=== PATIENT | male | born 1950 | race Caucasian/White ===

== ENCOUNTER → 2017-06-25 08:45 | Outpatient (CLI) | payer MEDICARE, OTHER, SELFPAY ==
[2017-06-25 09:35] LABS: Blood Urea Nitrogen 19 mg/dL (7-18); Creatinine,Serum 0.96 mg/dL (0.70-1.30); Estimated Glomerular Filt Rate 78 ml/min (>60); GFR (African American) 95 ML/MIN (>60)
--- NOTE | 2017-06-25 09:46 | CT_ITS ---
CT abdomen pelvis w con CLINICAL INDICATION: Left-sided abdominal pain with tenderness ITS.REASON: ABD PAIN AND TENDERNESS ORDERING PHYSICIAN: Maryanne Ferrer PATIENT AGE: 67 years TECHNIQUE: Axial images obtained with sagittal and coronal reformats. All CT scans at the facility use one or more dose reduction, viz: automated exposure control; ma/kV adjustment per patient size (including targeted exams where dose is matched to indication; i.e. head); or iterative reconstruction technique. PROCEDURE: Oral Contrast: Redicat IV Contrast: 75 mL's of Isovue-370. FINDINGS: Minimal atelectatic fibrotic changes are present in the lung bases. The liver, spleen, adrenal glands, and pancreas have an unremarkable appearance no radio opaque gallstones are evident. There is a small area of hyperdensity within the pancreatic head posterior to the common bile duct and may be related to an area of calcification or contrast within a small diverticulum. No pancreatic ductal dilatation is evident. No obstructing renal or ureteral calculi. No suspicious renal mass. Unremarkable appendix. Small umbilical hernia contains fat. Scattered diverticula are present within the sigmoid colon. No evidence of diverticulitis. Small bilateral inguinal hernias containing fat. 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 IMPRESSION: 1. No acute finding. 2. Small bilateral inguinal hernias and small umbilical hernia containing fat 3. Scattered diverticula within the sigmoid colon. No evidence of diverticulitis
== END ==
PROVIDERS: Family Provider Nurse Practitioner Family; PCP Nurse Practitioner Family; Visit Provider Nurse Practitioner Family
DX: R10.817 Generalized abdominal tenderness (principal)
CPT/HCPCS: 36415; 74177; 82565; 84520; Q9967

== ENCOUNTER → 2017-07-15 13:40 | Outpatient (POV) | payer MEDICARE, OTHER, SELFPAY | PROVIDERS: Family Provider Nurse Practitioner Family; PCP Nurse Practitioner Family; Visit Provider Nurse Practitioner Acute Care | DX: Z00.00 Encounter for general adult medical examination without abnormal findings (principal) ==

== ENCOUNTER 2018-03-19 23:44 | Inpatient (IN) ==
--- NOTE | 2018-03-20 00:20 | Emergency Department Note ---
ED Disposition Clinical Impression: Unstable angina pectoris, Renal insufficiency, Obesity (BMI 30.0-34.9) Disposition: Admitted As Inpatient Condition on Discharge: Serious Referrals: Provider,Referral, [Referring] - - Critical Care Critical Care Time: No Attestation: On 03/19/18, the high probability of a clinically significant, sudden or life threatening deterioration of the following system(s) required my full and direct attention, intervention and personal management. The time I documented below is in addition to time spent performing reported procedures but includes the following listed in this critical care notation. Medical Decision Making - Medical Records Medical records reviewed: Yes: I reviewed the patient's medical records. - Clay Inquiry Pt receiving controlled substance: No Vital Signs: 03/19/18 23:44 03/20/18 00:10 03/20/18 00:20 Temperature 98.5 F Temperature Source Oral Pulse Rate [Right Brachial] 72 73 69 Respiratory Rate 12 12 Blood Pressure [Right Arm] 140/79 149/76 H 144/79 H Blood Pressure Mean [Right Arm] 99 100 100 02 Sat by Pulse Oximetry 96 96 95 Oxygen Delivery Method Room Air Room Air Nasal Cannula Oxygen Flow Rate (LPM) 2 03/20/18 00:30 03/20/18 00:40 Temperature Temperature Source Pulse Rate [Right Brachial] 69 68 Respiratory Rate Blood Pressure [Right Arm] 141/75 H 144/86 H Blood Pressure Mean [Right Arm] 97 105 02 Sat by Pulse Oximetry 95 95 Oxygen Delivery Method Nasal Cannula Oxygen Flow Rate (LPM) 2 - Lab Data Lab results reviewed: Yes: I reviewed the patient's lab results. Lab Results 03/20/18 00:00: WBC 10.2, RBC 5.04, Hgb 15.3, Hct 46.2, MCV 91.8, MCH 30.4, MCHC 33.1, RDW 12.8, Plt Count 227, MPV 7.2 L, Neut % (Auto) 69.5, Lymph % (Auto) 24 .4, [place] % (Auto) 4.3, Eos % (Auto) 1.1, Baso % (Auto) 0.7, Neut # (Auto) 7.1, Lymph # (Auto) 2.5, [place] # (Auto) 0.4, Eos # (Auto) 0.1, Baso # (Auto) 0.1 03/20/18 00:00: Sodium 139, Potassium 4.3, Chloride 103, Carbon Dioxide 23, Anion Gap 17.3 H, BUN 23 H, Creatinine 1.26, Estimated Creat Clear 86, Estimated GFR 57 L, Est GFR ( Amer) 69, Glucose 115 H, Calcium 8.9, Troponin I < 0.02, TSH 4.15 H, Thyroxine (T4) 10.4 Result diagrams: 03/20/18 00:00 03/20/18 00:00 Orders (Tests/Meds): ED MEDICATIONS Generic Name Dose Route Start Last Admin Trade Name Jessie PRN Reason Stop Dose Admin Sodium Chloride 1,000 mls @ 999 mls/hr 03/19/18 23:45 03/20/18 00:09 Sod Chlor 0.9% 1000ml Bag IV 03/20/18 00:45 999 mls/hr .Q1H1M RUTH Administration Nitroglycerin/Dextrose 250 mls @ 1.5 mls/hr 03/19/18 23:45 03/20/18 00:08 Nitroglycerin 50mg/250ml D5w IV 04/18/18 23:44 5 mcg/min .Q24H RUTH 1.5 mls/hr Administration Protocol 5 MCG/MIN Sodium Chloride 10 ml 03/19/18 23:50 Saline Flush 10ml Syringe IV 04/18/18 23:49 NEEDED PRN Maintain IV Site Discontinued Medications Generic Name Dose Route Start Last Admin Trade Name Jessie PRN Reason Stop Dose Admin Aspirin 324 mg 03/19/18 23:50 03/20/18 00:08 Aspirin 81mg Chewable Tablet PO 03/19/18 23:51 324 mg ONCE ONE Administration Morphine Sulfate 4 mg 03/19/18 23:56 03/20/18 00:08 Morphine 4mg/Ml Syringe IV 03/19/18 23:57 4 mg ONCE ONE Administration Ondansetron HCl 4 mg 03/19/18 23:56 03/20/18 00:08 Zofran 4mg/2ml Vial IV 03/19/18 23:57 4 mg ONCE ONE Administration Ticagrelor 180 mg 03/20/18 01:11 03/20/18 01:16 Brilinta 90mg Tablet PO 03/20/18 01:12 180 mg ONCE ONE Administration ORDERS Category Date Time Status XR chest portable Stat Exams 03/19/18 23:50 Taken Troponin I Timed Lab 03/20/18 01:30 Ordered ECG Request by /Daljit Stat Y 03/19/18 23:50 Ordered - Radiology Data #1 Image(s): Chest Image Reviewed: Yes I reviewed the patient's radiology image Preliminary Findings: Abnormal (cm) - ECG Data Tracing #1 Normal Sinus Rhythm: Yes Ischemic changes: non-specific ST-T wave changes Tracing #2 Normal Sinus Rhythm: Yes Ischemic changes: non-specific ST-T wave changes - Physician Consults Physician Consulted: narciso Reason -: Admission Additional Consult: jose Reason -: Pt condition Chest Pain HPI - General Chief Complaint: Chest Pain Stated Complaint: chest pain/pressure Time Seen by Provider: 03/19/18 23:50 Mode of Arrival: EMS Source of Information: Patient, Spouse, EMS, Medical Record Limitations: No Limitations Description of Symptoms (Recalled from ER Triage Doc. by RN): Pt brought in by EMS for chest pain. Pt reports it started approx 30 minutes ago, he was sitting in the chair and it hit him suddenly. He reports severe pressure, with pain down into the left arm, and he got very "sweaty" and short of breath when it happened. Pt had 3 SL nitro en route and states that his pain is now a 5/10 instead of 9/10. - History of Present Illness HPI narrative: sudden onset of pressure chest pain with rad to lt upper ext with no known heart dis and he has diaphoresis - pt was seen by ems with ntg which helped pain and in ed pain gone with ntg drip complaint: chest pain indicative of cardiac Onset (ago): hour(s) Duration: now resolved Activity at onset: during rest Pain location: left chest Severity: severe Quality: heaviness Pain radiation: LUE Relieving factors: nitroglycerin Associated symptoms: nausea, diaphoresis, dyspnea, sense of impending doom Risk Factors for CAD: Hypertension, Hypercholesterolemia, Family Hx of CAD Treatments prior to or on arrival for Cardiac Chest Pain: nitroglycerin - NARA Score for Non-Stemi Age of Patient: 60-69 years old Heart Rate: 70-89 bpm Systolic Blood Pressure: 140-159 mmHg Serum Creatinine: 1.20-1.59 mg/dl CHF [place] Class: I-No CHF Other Risk Factors: None Non-Stemi Risk Score: 101 - Related Data Home Medications Medication Instructions Recorded Confirmed Allopurinol [Zyloprim] 300 mg PO DAILY 10/29/17 03/20/18 Aspirin [Aspir 81] 81 mg PO DAILY 10/29/17 03/20/18 Fenofibrate Nanocrystallized 48 mg PO DAILY 10/29/17 03/20/18 [Fenofibrate] Levothyroxine Sodium 125 mcg PO DAILY 10/29/17 03/20/18 [Levothyroxine 125mcg (0.125mg) Tab] NIFEdipine [Nifedipine ER] 90 mg PO DAILY 10/29/17 03/20/18 Omeprazole [Omeprazole 20mg Tab] 20 mg PO DAILY 10/29/17 03/20/18 Pravastatin Sodium [Pravachol] 20 mg PO HS 10/29/17 03/20/18 Allergies Allergy/AdvReac Type Severity Reaction Status Date / Time No Known Allergies Allergy Verified 10/29/17 14:22 [facility] History - Hepatitis A Screen Drug use history?: No High risk sexual behaviors?: No History of sexually transmitted infection?: No Currently employed?: No Childcare worker?: No Do you have indoor plumbing?: Yes Do you have electricity?: Yes Attestation statement:: This patient has been screened for Hepatitis A risk factors. I have reviewed the patient's past medical history: Yes Medical History: Reports:: Hyperlipidemia, Hypertension Denies:: Cancer, Diabetes Mellitus Type 1, Diabetes Mellitus Type 2, Internal Pacemaker, Lung Disease, MRSA, Seizures Other Surgeries: Yes: Hernia Repair. No: Pacemaker Amputation: No Fractures: No - Social History Alcohol Intake: never Occupational Status: retired - Psychiatric History Expresses thoughts of harming self/others: None Suicide Plan Description: No Plan ROS Obtained: Yes All systems reviewed & no additional complaints - Constitutional Constitutional: Denies fever(s) - Eyes Eyes: Denies change in vision - ENT Ears, Nose, Mouth, and Throat: Denies ear discharge, Denies sore throat - Cardiovascular Cardiovascular: Reports chest pain at rest, Reports diaphoresis, Reports radiating jaw, neck or arm pain - Respiratory Respiratory: No cough - Gastrointestinal Gastrointestingal: Denies: abdominal pain - Genitourinary Male Genitourinary: Denies hematuria - Musculoskeletal Musculoskeletal: Denies joint pain, Denies neck pain - Integumentary/Breasts Skin/Breast: Denies rash - Neurologic Neurologic: Denies seizure-like activity Physical Exam - General General appearance: alert, obese - Head Head exam: normocephalic - Eye Eye exam: Present: PERRL, EOMI. Absent: scleral icterus - ENT ENT exam: Present: mucous membranes dry - Neck Neck exam: Present: trachea midline - Respiratory Respiratory exam: Present: normal lung sounds bilaterally. Absent: respiratory distress - Cardiovascular Cardiovascular exam: Present: regular rate, systolic murmur, +S4 - Abdominal Exam Abdominal exam: Present: soft. Absent: tenderness - Extremities Exam Extremities exam: Present: pedal edema. Absent: calf tenderness - Neurological Exam Neurological exam: Present: alert, oriented X3, CN II-XII intact - Psychiatric Psychiatric exam: Present: normal affect - Skin Skin exam: Absent: rash
[2018-03-20 00:35] LABS: Basophils # 0.1 K/mm3 (0-0.2); Basophils % 0.7 % (0.1-2.0); Eosinophils # 0.1 K/mm3 (0.0-0.4); Eosinophils % 1.1 % (0.1-12.0); Hematocrit 46.2 % (42.0-52.0); Hemoglobin 15.3 g/dL (14.1-18.0); Lymphocytes # 2.5 K/mm3 (0.7-4.5); Lymphocytes % 24.4 % (10-50); Mean Corpuscular HGB Conc 33.1 g/dL (31.8-35.4); Mean Corpuscular Hemoglobin 30.4 pg (27.0-31.2); Mean Corpuscular Volume 91.8 fl (80-94); Mean Platelet Volume 7.2 fl (7.4-10.4); Monocytes # 0.4 K/mm3 (0.1-1.0); Monocytes % 4.3 % (1.7-9.3); Neutrophils # 7.1 K/mm3 (1.8-7.8); Neutrophils % 69.5 % (37.0-80.0); Platelet Count 227 K/mm3 (142-424); Red Blood Count 5.04 M/mm3 (4.60-6.20); Red Cell Distribution Width 12.8 % (11.5-17.5); White Blood Count 10.2 K/mm3 (4.8-10.8)
[2018-03-20 00:51] LABS: Anion Gap 17.3 mEq/L (5-15); Blood Urea Nitrogen 23 mg/dL (7-18); Calcium 8.9 mg/dL (8.5-10.1); Carbon Dioxide 23 mmol/L (21.0-32.0); Chloride 103 mmol/L (98-107); Glucose 115 mg/dL (74-106); Potassium 4.3 mmoL/L (3.5-5.1); Sodium 139 mmol/L (136-145); T4 (Thyroxine) 10.4 ug/dl (4.7-13.3); Thyroid Stimulating Hormone 4.15 uIU/ml (0.358-3.740)
[2018-03-20 05:05] LABS: Basophils # 0.1 K/mm3 (0-0.2); Basophils % 0.8 % (0.1-2.0); Eosinophils # 0.2 K/mm3 (0.0-0.4); Eosinophils % 2.3 % (0.1-12.0); Hematocrit 43.3 % (42.0-52.0); Hemoglobin 14.4 g/dL (14.1-18.0); Lymphocytes # 2.8 K/mm3 (0.7-4.5); Lymphocytes % 29.7 % (10-50); Mean Corpuscular HGB Conc 33.2 g/dL (31.8-35.4); Mean Corpuscular Hemoglobin 30.8 pg (27.0-31.2); Mean Corpuscular Volume 92.6 fl (80-94); Mean Platelet Volume 7.3 fl (7.4-10.4); Monocytes # 0.4 K/mm3 (0.1-1.0); Monocytes % 4.6 % (1.7-9.3); Neutrophils # 5.9 K/mm3 (1.8-7.8); Neutrophils % 62.5 % (37.0-80.0); Platelet Count 195 K/mm3 (142-424); Red Blood Count 4.68 M/mm3 (4.60-6.20); Red Cell Distribution Width 12.8 % (11.5-17.5); White Blood Count 9.4 K/mm3 (4.8-10.8)
[2018-03-20 05:15] LABS: Anion Gap 14.3 mEq/L (5-15); Calcium 8.5 mg/dL (8.5-10.1); Chol/HDL Ratio 5.2 (1-3.5); Potassium 4.3 mmoL/L (3.5-5.1)
--- NOTE | 2018-03-20 07:58 | Consult Report ---
History of Present Illness Consult date: 03/20/18 Requesting physician: Daniel Lima Consult reason: chest pain Chief complaint: chest pain Additional Medical History:: 1. HTN 2. HLD 3. Reflux 4. Hypothyroidism, on supplement History of present illness: 68 yo WM admitted for acute onset of chest pain, diaphoresis, nausea and left arm pain. Symptoms onset at 10:30 PM while watching TV. EMS called and transpo rted to [facility] ER. He received 3 SL NTG en route, each bringing some relief without resolution. In ER, NTG gtt started and symptoms resolved overnight. EKG's showed NSR without acute changes. Troponins normal X 2 but third one elevated consistent with NSTEMI. Pt relates exertional SOA over the last month or two in retrospect. Cardiology consulted for evaluation and treatment. Denies tobacco use or diabetes. HTN and HLD treated for about 10 yrs. [facility] History Medical History: Reports:: Hyperlipidemia, Hypertension Denies:: Cancer, Diabetes Mellitus Type 1, Diabetes Mellitus Type 2, Internal Pacemaker, Lung Disease, MRSA, Seizures Have you ever received a pneumonia vaccine?: No Have you received a flu vaccine this season?: Yes Other Surgeries: Yes: Hernia Repair. No: Pacemaker Amputation: No Fractures: No - *Social History Educational Level: Attended High School Smoking Status: Never smoker Alcohol Intake: never Occupational Status: retired Travel in the last 8 weeks: None - Psychiatric History Expresses thoughts of harming self/others: None Suicide Plan Description: No Plan *Family Hx:: Coronary Artery Disease Meds Home Medications Medication Instructions Recorded Confirmed Type Allopurinol [Zyloprim] 300 mg PO DAILY 10/29/17 03/20/18 History Aspirin [Aspir 81] 81 mg PO DAILY 10/29/17 03/20/18 History Fenofibrate Nanocrystallized 48 mg PO HS 10/29/17 03/20/18 History [Fenofibrate] Levothyroxine Sodium 0.1 mg PO DAILY 10/29/17 03/20/18 History [Levothyroxine 125mcg (0.125mg) Tab] NIFEdipine [Nifedipine ER] 90 mg PO DAILY 10/29/17 03/20/18 History Omeprazole [Omeprazole 20mg Tab] 20 mg PO DAILY 10/29/17 03/20/18 History Pravastatin Sodium [Pravachol] 20 mg PO HS 10/29/17 03/20/18 History Ibuprofen [Motrin 800mg Tab 800 mg PO DAILYP PRN 03/20/18 03/20/18 History (generic)] Metoprolol Succinate [Toprol XL 50 mg PO HS 03/20/18 03/20/18 History 50mg Tablet] Allergies Allergy/AdvReac Type Severity Reaction Status Date / Time No Known Allergies Allergy Verified 10/29/17 14:22 Review of Systems - *Cardiovascular Reports chest pain, Reports shortness of breath - *Respiratory Reports shortness of breath - *Gastrointestinal Reports nausea, Denies abdominal pain, Denies loose stools - *Genitourinary Denies blood in urine - *Musculoskeletal Denies joint pain - *Neurologic Denies seizure-like activity Exam Vital signs and Labs for Last 24 Hours: Temp Pulse Resp BP Pulse Ox 98.1 F 60 18 138/80 97 03/20/18 04:51 03/20/18 06:00 03/20/18 04:51 03/20/18 06:00 03/20/18 06:00 Laboratory Results - last 24 hr 03/20/18 00:00: WBC 10.2, RBC 5.04, Hgb 15.3, Hct 46.2, MCV 91.8, MCH 30.4, MCHC 33.1, RDW 12.8, Plt Count 227, MPV 7.2 L, Neut % (Auto) 69.5, Lymph % (Auto) 24.4, [place] % (Auto) 4.3, Eos % (Auto) 1.1, Baso % (Auto) 0.7, Neut # (Auto) 7.1, Lymph # (Auto) 2.5, [place] # (Auto) 0.4, Eos # (Auto) 0.1, Baso # (Auto) 0.1 03/20/18 00:00: Sodium 139, Potassium 4.3, Chloride 103, Carbon Dioxide 23, Anion Gap 17.3 H, BUN 23 H, Creatinine 1.26, Estimated Creat Clear 86, Estimated GFR 57 L, Est GFR ( Amer) 69, Glucose 115 H, Calcium 8.9, Troponin I < 0.02, TSH 4.15 H, Thyroxine (T4) 10.4 03/20/18 01:30: Troponin I 0.06 03/20/18 04:35: Troponin I 0.12 H 03/20/18 04:35: WBC 9.4, RBC 4.68, Hgb 14.4, Hct 43.3, MCV 92.6, MCH 30.8, MCHC 33.2, RDW 12.8, Plt Count 195, MPV 7.3 L, Neut % (Auto) 62.5, Lymph % (Auto) 29.7, [place] % (Auto) 4.6, Eos % (Auto) 2.3, Baso % (Auto) 0.8, Neut # (Auto) 5.9, Lymph # (Auto) 2.8, [place] # (Auto) 0.4, Eos # (Auto) 0.2, Baso # (Auto) 0.1 03/20/18 04:35: Sodium 139, Potassium 4.3, Chloride 105, Carbon Dioxide 24, Anion Gap 14.3, BUN 20 H, Creatinine 1.03, Estimated Creat Clear 110, Estimated GFR 72, Est GFR ( Amer) 87 D, Glucose 104, Calcium 8.5, Magnesium 2.1, Triglycerides 112, Cholesterol 145, LDL Cholesterol 95, VLDL Cholesterol 22, HDL Cholesterol 28, Cholesterol/HDL Ratio 5.2 H I & O for Last 24 hours: Intake & Output 03/17/18 03/18/18 03/19/18 03/20/18 11:59 11:59 11:59 11:59 Intake Total 622 / 622 Output Total 780 / 780 Balance -158 / -158 Weight 247 lb - *Routine Neck Exam Present: supple. Absent: JVD, carotid bruit - *Routine Respiratory Exam Present: CTA bilaterally. Absent: accessory muscle use, rales, rhonchi, wheezes - *Routine Cardiovascular Exam Present: RRR. Absent: murmur, gallop, rubs - *Routine Abdominal Exam Present: soft. Absent: tenderness, distended, guarding - *Routine Extremities Exam Absent: edema, calf tenderness - *Routine Neurological Exam Present: alert, oriented X3, moving all extremities Assessment and Plan (1) NSTEMI (non-ST elevated myocardial infarction) Current visit: Yes Status: Acute Category: Medical Code(s): I21.4 - Non-ST elevation (NSTEMI) myocardial infarction (2) Hypertension Current visit: Yes Status: Acute Category: Medical Code(s): I10 - Essential (primary) hypertension (3) Hyperlipidemia Current visit: Yes Status: Acute Category: Medical Code(s): E78.5 - Hyperlipidemia, unspecified (4) Obesity (BMI 30.0-34.9) Current visit: Yes Status: Acute Category: Medical Code(s): E66.9 - Obesity, unspecified - Assessment and plan all Dx Assessment and Plan for all problems:: 1. Echo has been performed. Results pending 2. In setting of NSTEMI, will proceed with [facility] today. 3. Switch pravastatin to atorvastatin for better LDL reduction. LDL 95 with goal of <55. 4. Continue metoprolol succinate ER 50 mg qhs 5. stop nifedipine 6. start ARB in the form of avapro 75 mg daily 7. Further recommendations after cardiac cath.
--- NOTE | 2018-03-20 07:58 | Pharmacy Consult Notes ---
[facility] Pharmacy VTE Monitoring - Patient Demographics Admission date: 03/20/18 Report Date: 03/20/18 Time: 07:57 Allergies/Adverse Reactions: Patient Allergies No Known Allergies Allergy (Verified 10/29/17 14:22) Height: 1.83 m Weight: 112.037 kg Patient Problems: Current Active Problems Unstable angina pectoris (Acute) Renal insufficiency (Acute) Obesity (BMI 30.0-34.9) (Acute) - VTE Risk Labs: VTE Related Lab Results Hgb 14.4 g/dL (14.1-18.0) 03/20/18 04:35 Hct 43.3 % (42.0-52.0) 03/20/18 04:35 Plt Count 195 K/mm3 (142-424) 03/20/18 04:35 BUN 20 mg/dL (7-18) H 03/20/18 04:35 Creatinine 1.03 mg/dL (0.70-1.30) 03/20/18 04:35 Estimated Creat Clear 110 mL/min (50-200) 03/20/18 04:35 Was VTE Risk Assessment Performed: Yes VTE Score: 0 Clinical Trial Participant: No - Prophylaxis VTE Prophylaxis Ordered?: Yes Types of VTE Prophylaxis: TEDS Knee High
--- NOTE | 2018-03-20 09:01 | History & Physical Report ---
*Admission Date: 03/20/18 *Chief complaint: CP *History of present illness: Mr. aBrrientos is a 68-year-old white male who at 10 PM last night had a sudden onset of left-sided chest pain that radiated down his left arm. He states he became diaphoretic and very short of breath. He was sitting watching TV at the onset of the chest pain. He became nauseated as well and his called 911. While in the ambulance, he received 4 aspirin and 3 nitroglycerin with some relief but not total resolution of his pain. In the ER he was started on a nitroglycerin drip and he states his symptoms resolved overnight. He has some very slight soreness in his left chest this morning. His EKG showed normal sinus rhythm without acute changes and his troponins were normal x2, however the third troponin was elevated consistent with an NSTEMI. He does have a history of hypertension and hyperlipidemia and currently sees Maryanne Ferrer as his PCP. He has had some exertional shortness of air over the last month or 2. Cardiology was consulted for further evaluation and treatment.. [facility] History Medical History: Reports:: Hyperlipidemia, Hypertension Denies:: Cancer, Diabetes Mellitus Type 1, Diabetes Mellitus Type 2, Internal Pacemaker, Lung Disease, MRSA, Seizures Have you ever received a pneumonia vaccine?: No Have you received a flu vaccine this season?: Yes Other Surgeries: Yes: Hernia Repair, Other (Sebaceous cyst removed right shoulder). No: Pacemaker Amputation: No Fractures: No - *Social History Educational Level: Attended High School Smoking Status: Never smoker Alcohol Intake: never Occupational Status: retired Travel in the last 8 weeks: None - Psychiatric History Expresses thoughts of harming self/others: None Suicide Plan Description: No Plan *Family Hx:: Coronary Artery Disease, Heart Attack, Hyperlipidemia, Hypertension Review of Systems - Constitutional Reports excessive sweating, Denies chills, Denies fatigue, Denies weakness - Eyes Denies blurry vision, Denies double vision - ENT Denies nasal congestion, Denies sore throat - *Cardiovascular Reports chest pain, Reports excessive sweating, Reports shortness of breath, Reports radiating jaw, neck or arm pain, Denies rapid, pounding, or irregular heartbeat - *Respiratory Reports cough - *Gastrointestinal Reports nausea, Denies abdominal pain, Denies loose stools, Denies vomiting - *Genitourinary Denies difficulty urinating, Denies painful urination - *Musculoskeletal Denies joint pain, Denies muscle cramps - *Neurologic Reports headache(s), Denies seizure-like activity, Denies dizziness, Denies weakness Meds Home Medications Medication Instructions Recorded Confirmed Type Allopurinol [Zyloprim] 300 mg PO DAILY 10/29/17 03/20/18 History Aspirin [Aspir 81] 81 mg PO DAILY 10/29/17 03/20/18 History Fenofibrate Nanocrystallized 48 mg PO HS 10/29/17 03/20/18 History [Fenofibrate] Levothyroxine Sodium 0.1 mg PO DAILY 10/29/17 03/20/18 History [Levothyroxine 125mcg (0.125mg) Tab] NIFEdipine [Nifedipine ER] 90 mg PO DAILY 10/29/17 03/20/18 History Omeprazole [Omeprazole 20mg Tab] 20 mg PO DAILY 10/29/17 03/20/18 History Pravastatin Sodium [Pravachol] 20 mg PO HS 10/29/17 03/20/18 History Ibuprofen [Motrin 800mg Tab 800 mg PO DAILYP PRN 03/20/18 03/20/18 History (generic)] Metoprolol Succinate [Toprol XL 50 mg PO HS 03/20/18 03/20/18 History 50mg Tablet] Allergies Allergy/AdvReac Type Severity Reaction Status Date / Time No Known Allergies Allergy Verified 10/29/17 14:22 Exam Vital signs and Labs for Last 24 Hours: Temp Pulse Resp BP Pulse Ox 98.1 F 60 18 138/80 97 03/20/18 04:51 03/20/18 06:00 03/20/18 04:51 03/20/18 06:00 03/20/18 06:00 Laboratory Results - last 24 hr 03/20/18 00:00: WBC 10.2, RBC 5.04, Hgb 15.3, Hct 46.2, MCV 91.8, MCH 30.4, MCHC 33.1, RDW 12.8, Plt Count 227, MPV 7.2 L, Neut % (Auto) 69.5, Lymph % (Auto) 24.4, [place] % (Auto) 4.3, Eos % (Auto) 1.1, Baso % (Auto) 0.7, Neut # (Auto) 7.1, Lymph # (Auto) 2.5, [place] # (Auto) 0.4, Eos # (Auto) 0.1, Baso # (Auto) 0.1 03/20/18 00:00: Sodium 139, Potassium 4.3, Chloride 103, Carbon Dioxide 23, Anion Gap 17.3 H, BUN 23 H, Creatinine 1.26, Estimated Creat Clear 86, Estimated GFR 57 L, Est GFR ( Amer) 69, Glucose 115 H, Calcium 8.9, Troponin I < 0.02, TSH 4.15 H, Thyroxine (T4) 10.4 03/20/18 01:30: Troponin I 0.06 03/20/18 04:35: Troponin I 0.12 H 03/20/18 04:35: WBC 9.4, RBC 4.68, Hgb 14.4, Hct 43.3, MCV 92.6, MCH 30.8, MCHC 33.2, RDW 12.8, Plt Count 195, MPV 7.3 L, Neut % (Auto) 62.5, Lymph % (Auto) 29.7, [place] % (Auto) 4.6, Eos % (Auto) 2.3, Baso % (Auto) 0.8, Neut # (Auto) 5.9, Lymph # (Auto) 2.8, [place] # (Auto) 0.4, Eos # (Auto) 0.2, Baso # (Auto) 0.1 03/20/18 04:35: Sodium 139, Potassium 4.3, Chloride 105, Carbon Dioxide 24, Anion Gap 14.3, BUN 20 H, Creatinine 1.03, Estimated Creat Clear 110, Estimated GFR 72, Est GFR ( Amer) 87 D, Glucose 104, Calcium 8.5, Magnesium 2.1, Triglycerides 112, Cholesterol 145, LDL Cholesterol 95, VLDL Cholesterol 22, HDL Cholesterol 28, Cholesterol/HDL Ratio 5.2 H 03/20/18 07:50: Troponin I 0.24 H I & O for Last 24 hours: Intake & Output 03/17/18 03/18/18 03/19/18 03/20/18 11:59 11:59 11:59 11:59 Intake Total 622 / 622 Output Total 780 / 780 Balance -158 / -158 Weight 247 lb - Constitutional no acute distress - *Routine HEENT Exam Head: Present: normocephalic Eye: Present: EOMI, PERRL ENT: Present: mucous membranes dry - *Routine Neck Exam Present: supple. Absent: carotid bruit, lymphadenopathy - *Routine Respiratory Exam Present: CTA bilaterally - *Routine Cardiovascular Exam Present: RRR - *Routine Abdominal Exam Present: soft, normoactive bowel sounds. Absent: tenderness - *Routine Extremities Exam Absent: cyanosis, clubbing, edema - *Routine Skin Exam Present: warm. Absent: rash - *Routine Neurological Exam Present: alert, oriented X3 H&P: Result - Impressions CXR - nothing acute Assessment and Plan (1) NSTEMI (non-ST elevated myocardial infarction) Current visit: Yes Status: Acute Category: Medical Code(s): I21.4 - Non-ST elevation (NSTEMI) myocardial infarction (2) Hypertension Current visit: Yes Status: Acute Category: Medical Code(s): I10 - Essential (primary) hypertension (3) Hyperlipidemia Current visit: Yes Status: Acute Category: Medical Code(s): E78.5 - Hyperlipidemia, unspecified (4) Obesity (BMI 30.0-34.9) Current visit: Yes Status: Acute Category: Medical Code(s): E66.9 - Obesity, unspecified - Assessment and plan all Dx Assessment and Plan for all problems:: Cardiology has seen the patient and they will do a heart cath today.
--- NOTE | 2018-03-20 16:46 | Cardiology Report ---
PROCEDURE: 2-D M-mode and color Doppler study INDICATIONS FOR THE TEST: Chest pain X COPD Heart Murmur Tobacco Smoking Palpitations Fatigue Syncope Edema HypertensionXDiabetes Mellitus Rheumatic Fever SOB BOWLES Obesity HyperlipidemiaX Family History HDX Additional History PATIENT INFORMATION HEIGHT: 72 WEIGHT:235 GENDER: Male B/P:141/82 2-D/M-MODE INTERPRETATION: 2-D MEASUREMENTS OBSERVED VALUES IN CMS Right Ventricular Dimension (RVDd) 3.3 Interventricular Septum (Thickness)(IVsd) .9 Left Ventricular Internal Dimensions(LVIDd) 5.3 Left Ventricular Posterior Wall (Thickness)(LVPWd) 1.0 Aortic Root 3.3 Aortic Cusp Separation 2.3 Left Atrial Dimensions (LAD) 3.3 2D 1. Left atrium is mildly enlarged, left ventricle is normal size, mild concentric left ventricular hypertrophy, visually estimated ejection fraction 55% with no regional wall motion abnormality. 2. The right atrium and right ventricle are mildly enlarged with normal contractility. 3. The aortic valve is minimally thickened and fibrosed. 4. The mitral and tricuspid valvular grossly normal. 5. The pulmonic valve is poorly visualized. 6. No significant pericardial effusion noted. DOPPLER INTERROGATION: Doppler interrogation of the aortic, mitral and tricuspid valvular presence of mild mitral and tricuspid regurgitation, tricuspid regurgitation jet velocity is inadequate for calculation of the right ventricular systolic pressure, grade 1 diastolic dysfunction seen with tissue Doppler evidence of raised left atrial pressure. CONCLUSION: 1. Mildly enlarged left atrium, normal left ventricular size, visually estimated ejection fraction 55% with no regional wall motion abnormality, grade 1 diastolic dysfunction seen with tissue Doppler evidence of raised left atrial pressure. 2. Mildly enlarged right ventricle with normal contractility. 3. Mild mitral and tricuspid regurgitation 4. No significant pericardial effusion noted.
[2018-03-21 07:34] LABS: Hematocrit 44.6 % (42.0-52.0); Hemoglobin 14.6 g/dL (14.1-18.0)
--- NOTE | 2018-03-21 08:26 | Progress Note ---
Internal Medicine - PN: Subj *Date: 03/21/18 *Time: 08:24 Interval history: The patient is feeling well this morning. He had one stent placed yesterday. Denies any abdominal pain or shortness of breath. He feels much better and is eating well. He is anxious to go home. Exam Vital signs and Labs for Last 24 Hours: Temp Pulse Resp BP Pulse Ox 98.1 F 89 18 92/39 L 91 L 03/21/18 06:58 03/21/18 06:58 03/21/18 06:58 03/21/18 06:58 03/21/18 06:58 Laboratory Results - last 24 hr 03/20/18 07:50: Troponin I 0.24 H 03/20/18 11:25: Activated Clotting Time 374 H* 03/21/18 07:05: Hgb 14.6, Hct 44.6 03/21/18 07:05: Creatinine 1.13, Estimated Creat Clear 100, Estimated GFR 65, Est GFR ( Amer) 78 I & O for Last 24 hours: Intake & Output 03/18/18 03/19/18 03/20/18 03/21/18 11:59 11:59 11:59 11:59 Intake Total 622 / 622 1503 / 1503 Output Total 780 / 780 2350 / 2350 Balance -158 / -158 -847 / -847 Weight 247 lb 244 lb 12.468 oz - Constitutional no acute distress - *Routine Respiratory Exam Present: CTA bilaterally - *Routine Cardiovascular Exam Present: RRR - *Routine Abdominal Exam Present: soft, normoactive bowel sounds. Absent: tenderness - *Routine Extremities Exam Absent: cyanosis, clubbing, edema Assessment and Plan (1) NSTEMI (non-ST elevated myocardial infarction) Current visit: Yes Status: Acute Category: Medical Code(s): I21.4 - Non-ST elevation (NSTEMI) myocardial infarction (2) Hypertension Current visit: Yes Status: Acute Category: Medical Code(s): I10 - Essential (primary) hypertension (3) Hyperlipidemia Current visit: Yes Status: Acute Category: Medical Code(s): E78.5 - Hyperlipidemia, unspecified (4) Obesity (BMI 30.0-34.9) Current visit: Yes Status: Acute Category: Medical Code(s): E66.9 - Obesity, unspecified (5) S/P coronary artery stent placement Current visit: Yes Status: Acute Category: Surgical Code(s): Z95.5 - Presence of coronary angioplasty implant and graft (6) Coronary artery disease Current visit: Yes Status: Acute Category: Medical Code(s): I25.10 - Atherosclerotic heart disease of [place] coronary artery without angina pectoris - Assessment and plan all Dx Assessment and Plan for all problems:: Cardiology feels patient is stable to be discharged today. Will discuss disposition with Dr. Lima.
--- NOTE | 2018-03-21 08:50 | Progress Note ---
Subjective Date: 03/21/18 Time: 08:46 Principal diagnosis: NSTEMI Interval history: 68 yo WM in bed in NAD. Feels much better. No chest pain. Wants to go home. Exam Vital signs and Labs for Last 24 Hours: Temp Pulse Resp BP Pulse Ox 97.6 F 62 15 150/45 H 96 03/21/18 08:00 03/21/18 08:00 03/21/18 08:00 03/21/18 08:00 03/21/18 08:00 Laboratory Results - last 24 hr 03/20/18 11:25: Activated Clotting Time 374 H* 03/21/18 07:05: Hgb 14.6, Hct 44.6 03/21/18 07:05: Creatinine 1.13, Estimated Creat Clear 100, Estimated GFR 65, Est GFR ( Amer) 78 I & O for Last 24 hours: Intake & Output 03/18/18 03/19/18 03/20/18 03/21/18 11:59 11:59 11:59 11:59 Intake Total 622 / 622 1863 / 1863 Output Total 780 / 780 2750 / 2750 Balance -158 / -158 -887 / -887 Weight 247 lb 244 lb 12.468 oz - *Routine HEENT Exam Head: Present: normocephalic Eye: Present: EOMI, PERRL ENT: Present: mucous membranes moist - *Routine Respiratory Exam Present: CTA bilaterally. Absent: accessory muscle use, rales, rhonchi, wheezes - *Routine Cardiovascular Exam Present: RRR. Absent: murmur, gallop, rubs - *Routine Abdominal Exam Present: soft. Absent: tenderness, distended, guarding - *Routine Neurological Exam Present: alert, oriented X3, moving all extremities Progress Note: A&P (1) NSTEMI (non-ST elevated myocardial infarction) Status: Acute Current Visit: Yes (2) Hypertension Status: Acute Current Visit: Yes (3) Hyperlipidemia Status: Acute Current Visit: Yes (4) Obesity (BMI 30.0-34.9) Status: Acute Current Visit: Yes (5) S/P coronary artery stent placement Status: Acute Current Visit: Yes (6) Coronary artery disease Status: Acute Current Visit: Yes Assessment and Plan for All Diagnoses:: OK for discharge home. Continue ASA 81 mg daily and Brilinta 90 mg BID along with irbesartan 75 mg daily and metoprolol succinate XL 50 mg daily. Atorvastatin 40 mg daily also. Follow up in one week.
--- NOTE | 2018-03-21 11:36 | Discharge Summary ---
General - General Admission date:: 03/20/18 Discharge date: 03/21/18 HPI HPI: Mr. Barrientos is a 68-year-old white male who at 10 PM last night had a sudden onset of left-sided chest pain that radiated down his left arm. He states he became diaphoretic and very short of breath. He was sitting watching TV at the onset of the chest pain. He became nauseated as well and his called 911. While in the ambulance, he received 4 aspirin and 3 nitroglycerin with some relief but not total resolution of his pain. In the ER he was started on a nitroglycerin drip and he states his symptoms resolved overnight. He has some very slight soreness in his left chest this morning. His EKG showed normal sinus rhythm without acute changes and his troponins were normal x2, however the third troponin was elevated consistent with an NSTEMI. He does have a history of hypertension and hyperlipidemia and currently sees Maryanne Ferrer as his PCP. He has had some exertional shortness of air over the last month or 2. Cardiology was consulted for further evaluation and treatment.. Hospital Course Hospital Course: The patient had a normal chest x-ray. He was seen by cardiology. They did a heart cath and found a ruptured plaque in the proximal ramus intermedius with an intraluminal thrombus creating an 80% stenosis. This was successfully reduced to 0% with 1 stent. He had diffuse moderate coronary artery disease and a normal ejection fraction. They recommended he be on Brilinta and aspirin for 1 year and recommended sohail inhibitors and beta-blockers as well as a high intensity statin prior to discharge home. The patient will need cardiac rehab and will need to avoid tobacco products. He was monitored overnight and did well. He was anxious to be discharged home and was stable to be discharged on aspirin 81 mg daily, Brilinta 90 mg twice daily, irbesartan 75 mg daily, metoprolol succinate XL 50 mg daily, and atorvastatin 40 mg daily. He will need to follow-up with his PCP as well as with cardiology in 1 week. Objective Vital signs: Temp Pulse Resp BP Pulse Ox 97.6 F 56 L 17 146/86 H 96 03/21/18 08:00 03/21/18 10:00 03/21/18 10:00 03/21/18 10:00 03/21/18 10:00 Narrative: - Constitutional no acute distress - *Routine HEENT Exam Head: Present: normocephalic Eye: Present: EOMI, PERRL ENT: Present: mucous membranes dry - *Routine Neck Exam Present: supple. Absent: carotid bruit, lymphadenopathy - *Routine Respiratory Exam Present: CTA bilaterally - *Routine Cardiovascular Exam Present: RRR - *Routine Abdominal Exam Present: soft, normoactive bowel sounds. Absent: tenderness - *Routine Extremities Exam Absent: cyanosis, clubbing, edema - *Routine Skin Exam Present: warm. Absent: rash - *Routine Neurological Exam Present: alert, oriented X3 Results Labs on day of discharge: Labs from last 24 hours 03/21/18 03/21/18 03/20/18 07:05 07:05 11:25 Hgb 14.6 Hct 44.6 Activated Clotting Time 374 H* Creatinine 1.13 Estimated Creat Clear 100 Estimated GFR 65 Est GFR ( Amer) 78 DS: Diagnosis - Discharge Diagnosis (1) NSTEMI (non-ST elevated myocardial infarction) Status: Acute (2) Hypertension Status: Acute (3) Hyperlipidemia Status: Acute (4) Obesity (BMI 30.0-34.9) Status: Acute (5) S/P coronary artery stent placement Status: Acute (6) Coronary artery disease Status: Acute Discharge Plan - Patient Discharge Instructions ACTIVITY: Limited activity DIET: low fat, low cholesterol Additional Instructions: FOLLOW UP WITH DR. GODOY ON MARCH 25, 2018 Patient Instructions: DI for Heart Attack, DI for Angina, DI for Cardiac Catheterization, DI for Surgical Site Infection - Follow up Plan Follow up with: Caden Godoy MD [Staff Physician] - Disposition: Home, Self-Residential Medications: Home Medications Medication Instructions Recorded Confirmed Type Allopurinol [Zyloprim] 300 mg PO DAILY 10/29/17 03/20/18 History Aspirin [Aspir 81] 81 mg PO DAILY 10/29/17 03/20/18 History Fenofibrate Nanocrystallized 48 mg PO DAILY 10/29/17 03/20/18 History [Fenofibrate] Levothyroxine Sodium 0.1 mg PO DAILY 10/29/17 03/20/18 History [Levothyroxine 125mcg (0.125mg) Tab] NIFEdipine [Nifedipine ER] 90 mg PO DAILY 10/29/17 03/20/18 History Omeprazole [Omeprazole 20mg Tab] 20 mg PO DAILY 10/29/17 03/20/18 History Albuterol Sulfate [Proair 2 puffs IH Q4-6H 03/20/18 03/20/18 History Respiclick] Cyanocobalamin (Vitamin B-12) 2,500 mcg SL DAILY 03/20/18 03/20/18 History [Vitamin B-12] Metoprolol Succinate [Toprol XL 50 mg PO DAILY 03/20/18 03/20/18 History 50mg Tablet] Atorvastatin Calcium [Lipitor 40mg 40 mg PO HS #30 tablet 03/21/18 Rx Tablet] Irbesartan [Avapro 75mg 75 mg PO DAILY #30 tablet 03/21/18 Rx tablet] Nitroglycerin [Nitrostat 0.4mg SL 0.4 mg SL Q5MINP PRN #1 tab.subl 03/21/18 Rx Tablet] Ticagrelor [Brilinta 90mg Tablet] 90 mg PO BID #60 tablet 03/21/18 Rx Prescriptions/Medication Reconciliation: New Irbesartan [Avapro 75mg tablet] 75 mg PO DAILY #30 tablet Ticagrelor [Brilinta 90mg Tablet] 90 mg PO BID #60 tablet Atorvastatin Calcium [Lipitor 40mg Tablet] 40 mg PO HS #30 tablet Nitroglycerin [Nitrostat 0.4mg SL Tablet] 0.4 mg SL Q5MINP PRN #1 tab.subl PRN Reason: Chest Pain Continue Omeprazole [Omeprazole 20mg Tab] 20 mg PO DAILY Levothyroxine Sodium [Levothyroxine 125mcg (0.125mg) Tab] 0.1 mg PO DAILY NIFEdipine [Nifedipine ER] 90 mg PO DAILY Fenofibrate Nanocrystallized [Fenofibrate] 48 mg PO DAILY Aspirin [Aspir 81] 81 mg PO DAILY Allopurinol [Zyloprim] 300 mg PO DAILY Metoprolol Succinate [Toprol XL 50mg Tablet] 50 mg PO DAILY Cyanocobalamin (Vitamin B-12) [Vitamin B-12] 2,500 mcg SL DAILY Albuterol Sulfate [Proair Respiclick] 2 puffs IH Q4-6H Discontinued Pravastatin Sodium [Pravachol] 20 mg PO HS Ibuprofen [Motrin 800mg Tab (generic)] 800 mg PO DAILYP PRN PRN Reason: Moderate Pain
== END 2018-03-21 11:01 | disposition home or self-care (01) | DRG 247 ==
LOC: ER 23:44 → ICU 03-20 01:15
PROVIDERS: ADMIT Family Medicine; ATTEND Family Medicine
CPT/HCPCS: 36415; 71010; 71045; 80048; 80061; 82565; 83735; 84436; 84443; 84484; 85014; 85018; 85025; 85347; 92928; 93005; 93306; 93458; 96365; 96367; 96375; 99285; C9600; J1644; J2405; Q9967

== ENCOUNTER → 2018-03-25 09:54 | Outpatient (CLI) | payer MEDICARE, OTHER, SELFPAY ==
[2018-03-25 10:12] LABS: Hematocrit 46.5 % (42.0-52.0); Hemoglobin 15.2 g/dL (14.1-18.0)
[2018-03-25 10:16] LABS: Blood Urea Nitrogen 18 mg/dL (7-18); Creatinine,Serum 1.17 mg/dL (0.70-1.30); Estimated Glomerular Filt Rate 62 ml/min (>60); GFR (African American) 75 ML/MIN (>60)
== END ==
PROVIDERS: Visit Provider Internal Medicine
DX: Z79.899 Other long term (current) drug therapy (principal); I21.4 Non-ST elevation (NSTEMI) myocardial infarction; I25.10 Atherosclerotic heart disease of native coronary artery without angina pectoris; R42 Dizziness and giddiness; E78.2 Mixed hyperlipidemia; I10 Essential (primary) hypertension; Z95.5 Presence of coronary angioplasty implant and graft
CPT/HCPCS: 36415; 82565; 84520; 85014; 85018

== ENCOUNTER → 2018-03-28 12:31 | Outpatient (CLI) | payer MEDICARE, OTHER, SELFPAY ==
--- NOTE | 2018-03-28 12:34 | CI_ITS ---
Cerebrovascular Exam IMPRESSIONS 1. The bilateral vertebral arteries are patent with normal antegrade flow. 2. Study suggests less than 20% stenosis involving the right internal carotid artery and the left internal carotid artery. History: Coronary artery disease. Risk factors: Hypertension. Hyperlipidemia. Carotid duplex study. Complete study and Doppler flow study including spectral analysis, color and bello scale imaging. Height: Height: 182.9cm. Height: 72in. Weight: Weight: 108.9kg. Weight: 239.5lb. Body mass index: BMI: 32.6kg/m^2. Body surface area: BSA: 2.38m^2. Location: Vascular laboratory. Patient status: Outpatient. Tables: Arterial flow: + +--------+--------+ Location V sys V ed + +--------+--------+ Right CCA - proximal 88.8cm/s 27.5cm/s + +--------+--------+ Right CCA - distal 59.7cm/s 20.4cm/s + +--------+--------+ Right ECA 131cm/s -------- + +--------+--------+ Right ICA - proximal 68.4cm/s 21.2cm/s + +--------+--------+ Right ICA - mid 80.1cm/s 25.9cm/s + +--------+--------+ Right ICA - distal 74.6cm/s 28.3cm/s + +--------+--------+ Right vertebral 36.9cm/s -------- + +--------+--------+ Left CCA - proximal 115cm/s 32.2cm/s + +--------+--------+ Left CCA - distal 55.8cm/s 15.7cm/s + +--------+--------+ Left ECA 85.6cm/s -------- + +--------+--------+ Left ICA - proximal 73.9cm/s 25.1cm/s + +--------+--------+ Left ICA - mid 72.3cm/s 26.7cm/s + +--------+--------+ Left ICA - distal 78.6cm/s 18.9cm/s + +--------+--------+ Left vertebral 40.9cm/s -------- + +--------+--------+ Velocity ratios: + + + + + + Right, V sys Right, V ed Left, V sys Left, V ed + + + + + + Max ICA/dist CCA 1.34 1.39 1.41 1.7 + + + + + + (Report amended ) Electronically signed by: Marcell Sanders [id number]
== END ==
PROVIDERS: PCP Nurse Practitioner Family; Visit Provider Internal Medicine
DX: E78.5 Hyperlipidemia, unspecified (principal); I10 Essential (primary) hypertension; I21.4 Non-ST elevation (NSTEMI) myocardial infarction; I25.10 Atherosclerotic heart disease of native coronary artery without angina pectoris; R42 Dizziness and giddiness; Z95.5 Presence of coronary angioplasty implant and graft
CPT/HCPCS: 93880

== ENCOUNTER 2018-04-10 09:01 | Outpatient (RCR) | payer MEDICARE, OTHER, SELFPAY | END 2018-06-16 14:19 | disposition home or self-care (01) | LOC: PT 09:01 | PROVIDERS: Visit Provider Internal Medicine | DX: I25.2 Old myocardial infarction (principal); I25.10 Atherosclerotic heart disease of native coronary artery without angina pectoris; Z95.5 Presence of coronary angioplasty implant and graft | CPT/HCPCS: 93798 ==

== ENCOUNTER → 2018-06-24 12:04 | Outpatient (CLI) | payer MEDICARE, OTHER, SELFPAY ==
[2018-06-24 12:52] LABS: Basophils # 0.1 K/mm3 (0-0.2); Basophils % 0.8 % (0.1-2.0); Eosinophils # 0.2 K/mm3 (0.0-0.4); Eosinophils % 3.3 % (0.1-12.0); Hemoglobin 14.9 g/dL (14.1-18.0); Lymphocytes % 26.7 % (10-50); Mean Corpuscular HGB Conc 34.6 g/dL (31.8-35.4); Mean Corpuscular Hemoglobin 31.3 pg (27.0-31.2); Mean Corpuscular Volume 90.7 fl (80-94); Mean Platelet Volume 7.2 fl (7.4-10.4); Monocytes # 0.4 K/mm3 (0.1-1.0); Monocytes % 5.5 % (1.7-9.3); Neutrophils # 4.7 K/mm3 (1.8-7.8); Neutrophils % 63.7 % (37.0-80.0); Platelet Count 211 K/mm3 (142-424); Red Blood Count 4.74 M/mm3 (4.60-6.20); White Blood Count 7.5 K/mm3 (4.8-10.8)
[2018-06-24 15:45] LABS: Alanine Aminotransferase 35 U/L (12-78); Albumin Level 4.2 gm/dL (3.4-5.0); Alkaline Phosphatase 78 U/L (46-116); Anion Gap 14.2 mEq/L (5-15); Aspartate Amino Transferase 18 U/L (15-37); Bilirubin,Direct 0.2 mg/dL (0.0-0.2); Bilirubin,Indirect 0.4 mg/dL (0.0-0.9); Bilirubin,Total 0.6 mg/dL (0.2-1.0); Blood Urea Nitrogen 19 mg/dL (7-18); Carbon Dioxide 26 mmol/L (21.0-32.0); Chloride 104 mmol/L (98-107); Chol/HDL Ratio 3.5 (1-3.5); Cholesterol 104 mg/dL (140-200); Creatinine,Serum 0.93 mg/dL (0.70-1.30); Estimated Glomerular Filt Rate 81 ml/min (>60); GFR (African American) 98 ML/MIN (>60); Glucose 83 mg/dL (74-106); HDL Cholesterol 30 mg/dL (27-67); LDL Cholesterol 58 mg/dL (0-130); Potassium 4.2 mmoL/L (3.5-5.1); Sodium 140 mmol/L (136-145); Total Protein,Serum 7.2 gm/dL (6.4-8.2); Triglycerides 78 mg/dL (30-200); VLDL Cholesterol 16 mg/dL (0-40)
== END ==
PROVIDERS: Visit Provider Physician Assistant
DX: E78.2 Mixed hyperlipidemia (principal); I10 Essential (primary) hypertension; I21.4 Non-ST elevation (NSTEMI) myocardial infarction; I25.10 Atherosclerotic heart disease of native coronary artery without angina pectoris; R06.09 Other forms of dyspnea; R42 Dizziness and giddiness; Z95.5 Presence of coronary angioplasty implant and graft
CPT/HCPCS: 36415; 80048; 80061; 80076; 83880; 85025

== ENCOUNTER → 2018-11-27 13:17 | Outpatient (CLI) | payer MEDICARE, OTHER, SELFPAY | PROVIDERS: PCP Nurse Practitioner Family; Visit Provider Urology | DX: G47.00 Insomnia, unspecified; R06.83 Snoring; G47.33 Obstructive sleep apnea (adult) (pediatric) | CPT/HCPCS: G0399 ==

== ENCOUNTER → 2019-05-18 09:19 | Outpatient (CLI) | payer MEDICARE, OTHER, SELFPAY ==
[2019-05-18 14:12] LABS: Alanine Aminotransferase 27 U/L (12-78); Albumin Level 4.2 g/dl (3.5-5.0); Albumin/Globulin Ratio 1.8 (1.1-1.8); Alkaline Phosphatase 61 U/L (38-126); Anion Gap 13.4 mEq/L (5-15); Aspartate Amino Transferase 27 U/L (17-59); Bilirubin,Total 0.5 mg/dl (0.2-1.3); Blood Urea Nitrogen 17 mg/dl (9-20); Calcium 9.3 mg/dl (8.4-10.2); Carbon Dioxide 26 mmol/L (22.0-30.0); Chloride 103 mmol/L (98-107); Chol/HDL Ratio 2.9 (1-3.5); Cholesterol 106 mg/dl (140-200); Estimated Glomerular Filt Rate 84 ml/min (>60); GFR (African American) 102 ML/MIN (>60); Globulin 2.4 g/dL (1.3-3.2); Glucose 86 mg/dl (74-100); HDL Cholesterol 36 mg/dl (40-60); Potassium 4.4 mmoL/L (3.5-5.1); Sodium 138 mmol/L (136-145); Total Protein,Serum 6.6 g/dl (6.3-8.2); Triglycerides 63 mg/dl (30-150); VLDL Cholesterol 13 mg/dL (0-40)
[2019-05-18 14:22] LABS: Direct LDL Cholesterol 69.59 mg/dL (100-129)
[2019-05-18 14:41] LABS: Thyroid Stimulating Hormone 2.95 uIU/mL (0.465-4.68)
== END ==
PROVIDERS: Visit Provider Nurse Practitioner Family
DX: I25.10 Atherosclerotic heart disease of native coronary artery without angina pectoris (principal); E03.9 Hypothyroidism, unspecified
CPT/HCPCS: 36415; 80053; 80061; 84443

== ENCOUNTER → 2019-10-02 06:11 | Outpatient (CLI) | payer MEDICARE, OTHER, SELFPAY ==
--- NOTE | 2019-10-02 06:12 | CA_ITS ---
APPROVED REPORT EXAM: Comprehensive 2D, Doppler, and color-flow Echocardiogram Stripe Marker: Jessica Villanueva RDCS Ht: 6 ft 0 in Wt: 240lbs BSA: 2.30 BP: 107/63 mmHg Indications: CAD,EDEMA,HTN,SOA,OBESITY 2D Dimensions LVOT 1.98 cm (M/F) 1.5-2.5 M-Mode Dimensions RVDd 3.13 cm (0.9-2.6) LVDd 5.47 cm (3.5-5.7) LVDs 3.62 cm (3.5-5.7) IVSd 0.72 cm (0.6-1.1) PWd 0.76 cm (0.6-1.1) EF (Teich) 62.10% FS 33.80% EDV (Teich) 145.60 mL ESV (Teich) 55.20 mL LV Diastology E/A Ratio 1.48 Mitral Valve MV A Velocity 47.00 (40-130 cm/s) Left Ventricle Left atrium is mildly enlarged, left ventricle is normal size, mild concentric left ventricular hypertrophy, visually estimated ejection fraction 50% with no regional wall motion abnormality, grade 1 diastolic dysfunction seen without tissue Doppler evidence of raise left atrial pressure. Right Ventricle Right atrium and right ventricle are mildly enlarged with normal contractility. Aortic Valve Aortic valve is minimally thickened and fibrosed, there is no aortic stenosis or aortic insufficiency. Mitral Valve Mitral valve is grossly normal. There is mild mitral regurgitation. Tricuspid Valve Tricuspid valve is grossly normal, there is mild tricuspid regurgitation. Tricuspid regurgitation jet velocity is inadequate for calculation of the right ventricular systolic pressure. Pulmonic Valve Pulmonic valve is poorly visualized. Great Vessels Aortic root is normal size. Pericardium No significant pericardial effusion noted Conclusion 1. Mild biatrial enlargement, normal left ventricular size, mild concentric left ventricular hypertrophy, visually estimated ejection fraction 50% with no regional wall motion abnormality, grade 1 diastolic dysfunction seen without tissue Doppler evidence of raise left atrial pressure. 2. Mildly enlarged right ventricle with normal contractility. 3. Mild mitral and tricuspid regurgitation. 4. No significant pericardial effusion noted. Electronically signed by : Varun Kang, 10/02/2019 10:38:01
--- NOTE | 2019-10-02 06:19 | NM_ITS ---
APPROVED REPORT Exam: Nuclear Stress Test Indication: cad, 1 stent, hx mi, htn, hyperlipidemia, sob, fatigue Patient Location: Outpatient Stress Tech: Lisset Matosnkson [place] Tech:WILMAR Arthur RT(R)(N) Ht: 6 ft 0 in Wt: 238 lbs HR: 59 bpm BP: 133/74 mmHg BSA: 2.29 m2 History: cad, 1 stent, hx mi, htn, hyperlipidemia, sob, fatigue Procedure: Patient received a 0.4 mg of intravenous Lexiscan, resting heart rate 59 bpm, resting blood pressure 133/74 mmHg, with Lexiscan maximum heart rate achived was 81 bpm which is Less than 85 % of the maximum predicted heart rate and blood pressure was 133/85 mmHg. With Lexiscan, patient denied any complaint of chest pain. Electrocardiogram Resting electrocardiogram showed sinus rhythm, with Lexiscan there is less than 1.[address] segment depression noted from the baseline EKG. The EKG portion of the Lexiscan Myoview is nondiagnostic. Cardiac Stress and Resting SPECT Images: Cardiac Stress and Resting SPECT images were obtained using technetium 99m Myoview 31.5 mCi stress and 10.08 mCi at rest. Gated SPECT with analysis of segmental wall motion and calculation of the ejection fraction also done. Cardiac stress and resting SPECT images show uniform myocardial activity without segmental perfusion abnormality, computer derived ejection fraction is 56% with no regional wall motion abnormality, right ventricle is normal size and contractility. Conclusion: 1. The EKG portion of the Lexiscan Myoview is nondiagnostic. 2. No scintigraphic evidence of reversible ischemia seen, computer derived ejection fraction is 56% with no regional wall motion abnormality, right ventricle is normal size and contractility. 3. Normal Lexiscan Myoview study. Electronically signed by : Varun Kang, 10/02/2019 13:48:52
[2019-10-02 08:20] LABS: Chloride 102 mmol/L (98-107); Sodium 140 mmol/L (136-145)
[2019-10-02 08:23] LABS: Blood Urea Nitrogen 13 mg/dl (9-20); Estimated Glomerular Filt Rate 84 ml/min (>60); GFR (African American) 102 ML/MIN (>60)
[2019-10-02 08:24] LABS: Calcium 9.5 mg/dl (8.4-10.2); Carbon Dioxide 29 mmol/L (22.0-30.0); Glucose 95 mg/dl (74-100)
[2019-10-02 08:32] LABS: NT Pro Brain Natriuretic Pep. 48.7 pg/mL (0-125)
== END ==
PROVIDERS: Physician Assistant; PCP Nurse Practitioner Family; Visit Provider Internal Medicine Cardiovascular Disease
DX: Z79.899 Other long term (current) drug therapy (principal); I20.0 Unstable angina; I11.9 Hypertensive heart disease without heart failure
CPT/HCPCS: 36415; 78452; 80048; 83880; 93017; 93306; A9502; J2785

== ENCOUNTER → 2019-11-30 08:54 | Outpatient (CLI) | payer MEDICARE, OTHER, SELFPAY ==
--- NOTE | 2019-11-30 08:58 | XR_ITS ---
PROCEDURE: XR CHEST 2V CLINICAL HISTORY: DYSPNEA Short of air, history lai virus COMPARISON: CR CXR CHEST(2 VIEWS-NOT PORTABLE) from 04/17/2016 CR [id number] XR chest portable from 03/19/2018 FINDINGS: The cardiomediastinal silhouette and pulmonary vascularity are within normal limits. Changes of COPD. Patchy areas of increased density are present in both lower lobes and may be due to areas of atelectasis or fibrosis which have developed in the interval. There is increased density overlying the mid thoracic spine posteriorly on the lateral view which may be part of this atelectatic or fibrotic changes versus subpleural nodular development. Chest CT may provide further evaluation. Nodular opacity also noted in the left midlung laterally at 10 mm. Nodular opacity also noted in the left lower lobe at 8 mm. No acute bony abnormalities. IMPRESSION: COPD with atelectatic or fibrotic changes in the lower lobes and areas of nodularity. Developing nodules are not excluded. Chest CT with contrast may provide further evaluation. Dictated by: Marcell Sanders MD 11/30/2019 11:06 Marcell Sanders MD in [place] 11/30/2019 11:06
== END ==
PROVIDERS: PCP Nurse Practitioner Family; Visit Provider Nurse Practitioner Family
DX: R06.00 Dyspnea, unspecified (principal)
CPT/HCPCS: 71046

== ENCOUNTER → 2020-02-08 11:45 | Outpatient (CLI) | payer MEDICARE, OTHER, SELFPAY ==
--- NOTE | 2020-02-08 11:52 | XR_ITS ---
PROCEDURE: XR WRIST LT 2V CLINICAL INDICATION: PAIN IN LT WRIST COMPARISON: No exams were available for comparison FINDINGS: No fracture or dislocation. No lytic or blastic change. There is normal mineralization. The joint spaces are well-preserved. No significant degenerative/arthritic changes. No erosive changes evident. Other findings:None. IMPRESSION: No acute findings. Dictated by: Marcell Sanders MD 02/08/2020 16:23 Marcell Sanders MD in [facility] 02/08/2020 16:23
== END ==
PROVIDERS: PCP Nurse Practitioner Family; Visit Provider Nurse Practitioner
DX: M25.532 Pain in left wrist (principal)
CPT/HCPCS: 73100

== ENCOUNTER → 2020-06-03 12:38 | Outpatient (CLI) | payer MEDICARE, OTHER, SELFPAY ==
--- NOTE | 2020-06-03 12:48 | XR_ITS ---
PROCEDURE: XR THORACIC SPINE 3V CLINICAL INDICATION: THORACIC PAIN COMPARISON: CR [id number] XR chest portable from 03/19/2018 FINDINGS: There is normal curvature and alignment. All thoracic vertebrae appear intact. There is moderate multilevel degenerate changes upper and midthoracic spine. There is no evidence of recent or old compression fracture. There is no paraspinal mass. IMPRESSION: Multilevel degenerate changes as noted, no acute osseous pathology noted Dictated by: Dr. William Tavera MD 06/03/2020 13:06 Dr. William Tavera MD in [place] 06/03/2020 13:06
== END ==
PROVIDERS: PCP Nurse Practitioner Family; Visit Provider Nurse Practitioner Family
DX: M54.6 Pain in thoracic spine (principal)
CPT/HCPCS: 72072

== ENCOUNTER → 2020-10-25 12:11 | Outpatient (CLI) | payer MEDICARE, OTHER, SELFPAY ==
--- NOTE | 2020-10-25 12:21 | XR_ITS ---
PROCEDURE: XR FOOT LT 2V CLINICAL INDICATION: PUNCTURE WOUND W/O FOREIGN BOY, LT FOOT,INTIAL ENCOUNTER COMPARISON: No exams were available for comparison FINDINGS: No fracture or dislocation. No lytic or blastic change. There is normal mineralization. The joint spaces are well-preserved. No significant degenerative/arthritic changes. No erosive changes evident. Other findings:No radiopaque foreign body or soft tissue gas. IMPRESSION: No acute findings. Dictated by: Marcell Sanders MD 10/25/2020 12:29 Marcell Sanders MD in [facility] 10/25/2020 12:29
== END ==
PROVIDERS: PCP Nurse Practitioner Family; Visit Provider Nurse Practitioner Family
DX: S91.332A Puncture wound without foreign body, left foot, initial encounter (principal)
CPT/HCPCS: 73620

== ENCOUNTER → 2021-01-23 09:50 | Outpatient (CLI) | payer MEDICARE, OTHER, SELFPAY ==
--- NOTE | 2021-01-23 09:51 | CA_ITS ---
APPROVED REPORT EXAM: Comprehensive 2D, Doppler, and color-flow Echocardiogram Substance Abuse Rn: Christiana Levi RT(R) Ht: 6 ft 0 in Wt: 238lbs BSA: 2.29 BP: 111/60 mmHg Indications: HTN, SOB, Hyperlipidemia, CAD, GOLD, DD, hx COVID 2D Dimensions LVOT 2.13 cm (M/F) 1.5-2.5 LVEF (Thornton's) 57.70 % M: 52 - 72 LV Volume 120.70 mL M: 62 - 150 LV Volume Index 52.70 mL/m2 M: 34 - 74 LA Volume 44.40 mL LA Volume Index 19.38 mL/m2 (M/F) 16-34 M-Mode Dimensions RVDd 3.36 cm (0.9-2.6) LA Diam 3.66 cm (1.9-4.0) LVDd 5.05 cm (3.5-5.7) Ao Diam 3.58 cm (2.0-3.7) LVDs 3.27 cm (3.5-5.7) IVSd 0.93 cm (0.6-1.1) PWd 0.68 cm (0.6-1.1) EF (Teich) 64.30% FS 35.20% EDV (Teich) 121.00 mL ESV (Teich) 43.20 mL LV Diastology E Decel Time 173.00 (160-240 msec) E/A Ratio 1.1 MED E' 9.60 (< 7 cm/sec) E'/MED E' Ratio 8.23 (>14) LAT E' 11.80 (<10 cm/sec) E/LAT E' Ratio 6.69 (>14) Mitral Valve MV E Max Boris. 79.00 (40-130 cm/s) MV A Velocity 69.00 (40-130 cm/s) E/A Ratio 1.14 MV Decel. Time 173.00 (160-240 ms) MV PHT 51.00 ms Left Ventricle Left atrium is mildly enlarged, left ventricle is normal size, mild concentric left ventricular hypertrophy, visually estimated ejection fraction 55% with no regional wall motion abnormality, grade 1 diastolic dysfunction seen without tissue Doppler evidence of raise left atrial pressure. Right Ventricle Right atrium and right ventricle mildly enlarged with normal contractility. Aortic Valve Aortic valve is minimally thickened and fibrosed, there is no aortic stenosis or aortic insufficiency. Mitral Valve Mitral valve is grossly normal, there is trace mitral regurgitation. Tricuspid Valve Tricuspid grossly normal, there is trace tricuspid regurgitation, tricuspid regurgitation jet velocity is inadequate for calculation of the right ventricular systolic pressure. Pulmonic Valve Pulmonic valve is poorly visualized. Great Vessels Aortic root is normal size. Inferior vena cava normal size with normal inspiratory collapse. Pericardium No significant pericardial effusion noted. Conclusion 1. Mild biatrial enlargement, normal left ventricular size, mild concentric left ventricular hypertrophy, visually estimated ejection fraction 55% with no regional wall motion abnormality, grade 1 diastolic dysfunction seen without tissue Doppler evidence of raise left atrial pressure. 2. Mildly enlarged right ventricle with normal contractility. 3. Trace mitral and tricuspid regurgitation. 4. No significant pericardial effusion noted. 5. Inferior vena cava is normal size with normal inspiratory collapse. Electronically signed by : Varun Kang MD 01/23/2021 20:34:29
== END ==
PROVIDERS: PCP Nurse Practitioner Family; Visit Provider Urology
DX: E66.9 Obesity, unspecified (principal); E78.2 Mixed hyperlipidemia; G47.33 Obstructive sleep apnea (adult) (pediatric); I10 Essential (primary) hypertension; I25.10 Atherosclerotic heart disease of native coronary artery without angina pectoris; I65.23 Occlusion and stenosis of bilateral carotid arteries; R06.02 Shortness of breath; Z95.5 Presence of coronary angioplasty implant and graft; Z68.32 Body mass index [BMI] 32.0-32.9, adult
CPT/HCPCS: 93306

== ENCOUNTER → 2021-06-08 12:32 | Outpatient (CLI) | payer MEDICARE, OTHER, SELFPAY | PROVIDERS: Visit Provider Podiatrist | DX: M79.674 Pain in right toe(s) (principal); L60.0 Ingrowing nail; B35.1 Tinea unguium | CPT/HCPCS: 87102; 87206 ==

== ENCOUNTER → 2021-06-10 11:37 | Outpatient (CLI) | payer MEDICARE, OTHER, SELFPAY | PROVIDERS: PCP Nurse Practitioner Family; Visit Provider Surgery | DX: Z01.812 Encounter for preprocedural laboratory examination (principal); Z11.52 Encounter for screening for COVID-19; Z12.11 Encounter for screening for malignant neoplasm of colon | CPT/HCPCS: C9803; U0003; U0005 ==

== ENCOUNTER 2021-06-13 07:26 | Day surgery (SDC) | payer MEDICARE, OTHER, SELFPAY ==
[2021-06-12 11:10] VITALS: BMI 32.5
[2021-06-13 07:43] VITALS: BP 131/82; PULSE 62; RESP 18; TEMP 36.9; O2SAT 97
--- NOTE | 2021-06-13 08:08 | HMH.ANESCL ---
[facility] Anesthesia Checklist - Additional verifications Anesthesia Reactions: No [facility] History Medical History: Reports:: Carotid Stenosis, Coronary Artery Disease, Hyperlipidemia, Hypertension, Myocardial Infarction Denies:: Cancer, Diabetes Mellitus Type 1, Diabetes Mellitus Type 2, Internal Pacemaker, Lung Disease, MRSA, Seizures *Have you ever received a pneumonia vaccine?: Yes *Have you received a flu vaccine this season?: Yes Other Medical History: Reports: Thyroid Disease Other Surgeries: Yes: Cardiac Catheterization, Coronary Stent, Hernia Repair, Other (hernia repair, sebacous cyst removal.). No: Pacemaker Amputation: No Fractures: No - *Social History Last grade of school completed: Some college Smoking Status: Never smoker Alcohol Intake: never Alcohol Intake Frequency:: holidays/special occasions only Substance Use Type: denies use *Occupational Status:: retired Housing: house Household Members: spouse *Travel in the last 8 weeks: None Family Hx:: Coronary Artery Disease, Heart Attack, Hyperlipidemia, Hypertension
--- NOTE | 2021-06-13 08:11 | P.PN_ITS ---
[facility] Anesthesia Checklist - Patient Identification Patient Identification: Arm Band - Structural Data Admitted From: Home Planned Operative Procedure/s: Colonoscopy Consent for Planned Operative Procedure(s) Verified: Yes - NPO Status Verified Time NPO: 03:30 (Prep) - Additional verifications Anesthesia Reactions: No - Airway Assessment C-Spine Mobility Assessed: Yes TMJ Mobility Assessed: Yes Dentition: Dentures-good fit - Neurological Assessment Level of Consciousness: Awake Hx Seizures: No Numbness or tingling in extremities: No - Anesthesia Plan Anesthesia Risk discussed: Yes Anesthesia Plan: Verified ASA Class: III Anesthesia Type: MAC [facility] History I have reviewed the patient's past medical history: Yes Medical History: Reports:: Carotid Stenosis, Coronary Artery Disease, Hyperlipidemia, Hypertension, Myocardial Infarction Denies:: Cancer, Diabetes Mellitus Type 1, Diabetes Mellitus Type 2, Internal Pacemaker, Lung Disease, MRSA, Seizures *Have you ever received a pneumonia vaccine?: Yes *Have you received a flu vaccine this season?: Yes Other Medical History: Reports: Thyroid Disease Anesthesia experience/problems:: None Other Surgeries: Yes: Cardiac Catheterization, Coronary Stent, Hernia Repair, Other (hernia repair, sebacous cyst removal.). No: Pacemaker Amputation: No Fractures: No - *Social History Last grade of school completed: Some college Smoking Status: Never smoker Alcohol Intake: never Alcohol Intake Frequency:: holidays/special occasions only Substance Use Type: denies use *Occupational Status:: retired Housing: house Household Members: spouse *Travel in the last 8 weeks: None Family Hx:: Coronary Artery Disease, Heart Attack, Hyperlipidemia, Hypertension
--- NOTE | 2021-06-13 09:03 | HMH.SCOPE ---
- Procedure: Date: 06/13/21 Patient Date of :: 1950 Procedure Performed:: Colonoscopy with polypectomy Indications:: History of colon polyps Colonoscopy in October [address] Alireza Solis revealed diminutive polyps, diverticulosis, and mild hemorrhoids. Performing Provider:: Javi Mao MD Referring Provider:: . Sedation:: Monitored anesthesia care Procedure:: After informed consent was obtained the patient was taken to the endoscopy suite. Sedation ensued after the patient was transferred to the left lateral decubitus position. Pulse, blood pressure, and oxygen saturation were monitored throughout the procedure. Digital rectal exam revealed no significant abnormality. The colonoscope was placed in position. The entire colon was evaluated. The colonoscope was carefully removed and the patient was transferred to recovery in stable condition. Please see findings and specimens below for detail. Findings:: Bowel preparation relatively fair Hemorrhoidal tags Scattered diverticulosis (more pronounced in sigmoid colon) Fairly severe spasticity and lack of relaxation Polyps (see specimens) Specimens:: Proximal transverse colon polyp (cold biopsy forceps) Cluster of polyps (x5) in transverse colon (combination of cold biopsy forceps, cold snare, and hot snare) Recommendations:: Timing of repeat colonoscopy is pending pathology but likely be around 2-3 years secondary to history of significant polyps, spasticity, and lack of relaxation. Complications:: No immediate Estimated blood obtained (mL): 1
[2021-06-13 09:05] VITALS: BP 88/56; PULSE 59; RESP 16; TEMP 36.7; O2SAT 91
[2021-06-13 09:15] VITALS: BP 96/60; PULSE 52; RESP 16; TEMP 36.7; O2SAT 92
[2021-06-13 09:25] VITALS: BP 116/73; PULSE 58; RESP 16; TEMP 36.7; O2SAT 94
[2021-06-13 09:41] VITALS: BP 123/74; PULSE 50; RESP 18; TEMP 36.7; O2SAT 94
== END 2021-06-13 09:41 | disposition home or self-care (01) ==
LOC: OUTP 07:27
PROVIDERS: PCP Nurse Practitioner Family; Visit Provider Surgery
PROC: 0DJD8ZZ Inspection of Lower Intestinal Tract, Via Natural or Artificial Opening Endoscopic (ICD-10-PCS; principal; 2021-06-13 08:30)
DX: Z12.11 Encounter for screening for malignant neoplasm of colon (principal); Z86.010 Personal history of colon polyps; K64.9 Unspecified hemorrhoids; K57.30 Diverticulosis of large intestine without perforation or abscess without bleeding; K63.5 Polyp of colon; I25.10 Atherosclerotic heart disease of native coronary artery without angina pectoris; E78.5 Hyperlipidemia, unspecified; I10 Essential (primary) hypertension; I25.2 Old myocardial infarction; I65.29 Occlusion and stenosis of unspecified carotid artery; E07.9 Disorder of thyroid, unspecified; Z88.8 Allergy status to other drugs, medicaments and biological substances
CPT/HCPCS: 45385; 88305

== ENCOUNTER → 2022-01-26 10:01 | Outpatient (CLI) | payer MEDICARE, OTHER, SELFPAY ==
[2022-01-26 10:46] LABS: Basophils # 0.1 K/mm3 (0-0.2); Basophils % 1.5 % (0.1-2.0); Eosinophils # 0.3 K/mm3 (0.0-0.4); Eosinophils % 4.5 % (0.1-12.0); Hematocrit 47.1 % (42.0-52.0); Hemoglobin 15.6 g/dL (14.1-18.0); Lymphocytes # 1.9 K/mm3 (0.7-4.5); Lymphocytes % 27.2 % (10-50); Mean Corpuscular HGB Conc 33.1 g/dL (31.8-35.4); Mean Corpuscular Hemoglobin 31.3 pg (27.0-31.2); Mean Corpuscular Volume 94.7 fl (80-94); Mean Platelet Volume 8.1 fl (7.4-10.4); Monocytes # 0.3 K/mm3 (0.1-1.0); Monocytes % 4.2 % (1.7-9.3); Neutrophils # 4.4 K/mm3 (1.8-7.8); Neutrophils % 62.6 % (37.0-80.0); Platelet Count 239 K/mm3 (142-424); Red Blood Count 4.97 M/mm3 (4.60-6.20); Red Cell Distribution Width 13.6 % (11.5-17.5)
[2022-01-26 12:12] LABS: Alanine Aminotransferase 31 U/L (12-78); Albumin Level 4.6 g/dl (3.5-5.0); Alkaline Phosphatase 82 U/L (38-126); Anion Gap 11.5 mEq/L (5-15); Aspartate Amino Transferase 30 U/L (17-59); Bilirubin,Direct 0.1 mg/dl (0.0-0.4); Bilirubin,Indirect 0.6 mg/dL (0.0-0.9); Bilirubin,Total 0.7 mg/dl (0.2-1.3); Bilirubin,Unconjugated 0.6 mg/dL (0.0-1.1); Blood Urea Nitrogen 22 mg/dl (9-20); Calcium 9.7 mg/dl (8.4-10.2); Carbon Dioxide 29 mmol/L (22.0-30.0); Chloride 104 mmol/L (98-107); Chol/HDL Ratio 3.9 (1-3.5); Cholesterol 142 mg/dl (140-200); Estimated Glomerular Filt Rate 74 ml/min (>60); GFR (African American) 89 ML/MIN (>60); Glucose 90 mg/dl (74-100); HDL Cholesterol 36 mg/dl (40-60); Magnesium 1.9 mg/dl (1.6-2.3); Potassium 4.5 mmoL/L (3.5-5.1); Sodium 140 mmol/L (136-145); Total Protein,Serum 7.1 g/dl (6.3-8.2); Triglycerides 70 mg/dl (30-150); VLDL Cholesterol 14 mg/dL (0-40)
[2022-01-26 12:23] LABS: Direct LDL Cholesterol 87.11 mg/dL (100-129)
[2022-01-26 12:26] LABS: Free T4 (Free Thyroxine) 1.05 ng/dl (0.78-2.19)
[2022-01-26 12:42] LABS: Thyroid Stimulating Hormone 3.76 uIU/mL (0.465-4.68)
== END ==
PROVIDERS: PCP Internal Medicine Cardiovascular Disease; Visit Provider Nurse Practitioner Family
DX: E66.9 Obesity, unspecified (principal); E78.5 Hyperlipidemia, unspecified; G47.33 Obstructive sleep apnea (adult) (pediatric); I10 Essential (primary) hypertension; I25.10 Atherosclerotic heart disease of native coronary artery without angina pectoris; I77.9 Disorder of arteries and arterioles, unspecified; R06.02 Shortness of breath; Z95.5 Presence of coronary angioplasty implant and graft; Z68.34 Body mass index [BMI] 34.0-34.9, adult
CPT/HCPCS: 36415; 80048; 80061; 80076; 83735; 84439; 84443; 85025

== ENCOUNTER → 2023-02-20 11:40 | Outpatient (CLI) | payer MEDICARE, OTHER, SELFPAY ==
[2023-02-20 11:59] LABS: Basophils # 0.1 K/mm3 (0-0.2); Basophils % 1.2 % (0.1-2.0); Eosinophils # 0.3 K/mm3 (0.0-0.4); Hematocrit 46.2 % (42.0-52.0); Hemoglobin 15.9 g/dL (14.1-18.0); Lymphocytes # 1.8 K/mm3 (0.7-4.5); Lymphocytes % 25.6 % (10-50); Mean Corpuscular HGB Conc 34.5 g/dL (31.8-35.4); Mean Corpuscular Hemoglobin 32.1 pg (27.0-31.2); Mean Corpuscular Volume 93.2 fl (80-94); Mean Platelet Volume 8.1 fl (7.4-10.4); Monocytes # 0.4 K/mm3 (0.1-1.0); Neutrophils # 4.6 K/mm3 (1.8-7.8); Neutrophils % 64.1 % (37.0-80.0); Platelet Count 198 K/mm3 (142-424); Red Blood Count 4.95 M/mm3 (4.60-6.20); Red Cell Distribution Width 13.4 % (11.5-17.5); White Blood Count 7.2 K/mm3 (4.8-10.8)
[2023-02-20 12:37] LABS: Alanine Aminotransferase 49 U/L (12-78); Albumin Level 4.5 g/dl (3.5-5.0); Alkaline Phosphatase 65 U/L (38-126); Aspartate Amino Transferase 53 U/L (17-59); Bilirubin,Direct 0.1 mg/dl (0.0-0.4); Bilirubin,Indirect 0.6 mg/dL (0.0-0.9); Bilirubin,Total 0.7 mg/dl (0.2-1.3); Bilirubin,Unconjugated 0.6 mg/dL (0.0-1.1); Blood Urea Nitrogen 14 mg/dl (9-20); Calcium 8.8 mg/dl (8.4-10.2); Carbon Dioxide 26 mmol/L (22.0-30.0); Chloride 105 mmol/L (98-107); Chol/HDL Ratio 4.2 (1-3.5); Cholesterol 138 mg/dl (140-200); Estimated Glomerular Filt Rate 83 ml/min (>60); GFR (African American) 101 ML/MIN (>60); Glucose 95 mg/dl (74-100); HDL Cholesterol 33 mg/dl (40-60); Magnesium 1.9 mg/dl (1.6-2.3); Sodium 138 mmol/L (136-145); Total Protein,Serum 7.1 g/dl (6.3-8.2); Triglycerides 109 mg/dl (30-150); VLDL Cholesterol 22 mg/dL (0-40)
[2023-02-20 12:48] LABS: Direct LDL Cholesterol 87.99 mg/dL (100-129)
[2023-02-20 12:53] LABS: Free T4 (Free Thyroxine) 1.03 ng/dl (0.78-2.19)
[2023-02-20 13:07] LABS: Thyroid Stimulating Hormone 1.86 uIU/mL (0.465-4.68)
== END ==
LOC: LAB 11:41
PROVIDERS: PCP Nurse Practitioner Family; Visit Provider Internal Medicine
DX: I20.9 Angina pectoris, unspecified (principal); R06.00 Dyspnea, unspecified
CPT/HCPCS: 36415; 80048; 80061; 80076; 83735; 84439; 84443; 85025

== ENCOUNTER 2023-02-26 07:20 | Day surgery (SDC) | payer MEDICARE, OTHER, SELFPAY ==
[2023-02-26] VITALS (14 sets, daily range): BP systolic 103–136; BP diastolic 60–91; PULSE 52–69; RESP 16–19; TEMP 36.2–36.6; O2SAT 90–97; BMI 34.7
--- NOTE | 2023-02-26 07:18 | IR_ITS ---
APPROVED REPORT Patient Location: Outpatient [facility] Operator: WILMAR Rankin RT (R) PROCEDURES Selective coronary angiogram Intravascular ultrasound to the LAD Drug-eluting stent deployment to the proximal LAD INDICATION Coronary artery disease, Accelerated angina pectoris, Angiographic ambiguity within the proximal LAD Informed consent was obtained prior to the procedure. COMPLICATIONS NONE Estimated Blood Loss: LESS THAN 10 ML TECHNIQUE One percent lidocaine used to anesthetize the right anterior aspect of the wrist. The right radial artery was accessed via the Seldinger technique. A 6 Swazi sheath was placed in the right radial artery. 2.5 mg of Verapamil, 800 mcg of nitroglycerin, 1mg Lidocaine and 5000 U Heparin were given through the arterial sheath. The papa catheter was also used to perform selective coronary angiogram. At the end of the procedure therapeutic heparin was administered giving a therapeutic ACT and the guide catheter was placed in left main artery followed by Choice PT extra-support wire down the LAD. Intravascular ultrasound probe was advanced and there was difficulty passing the device in the proximal LAD. The MLA within the proximal LAD was 3.1 mm??? and was heavily calcified. At this point a 3 mm x 22 mm Danny frontier stent was deployed in the proximal LAD at 22 moy reducing the stenosis to 0%. Intravascular sound probe was advanced which demonstrated the proximal transitioning point looks good as well as the distal transitioning point of the stent. The stent had good stent apposition with adequate expansion throughout. At the end the procedure the apparatus was removed the sheath was removed and hemostasis was achieved using TR banding patient was transferred to postop holding in stable condition ANGIOGRAPHIC RESULTS The left main artery Normal The left anterior descending artery Has proximal hazy angiographic ambiguous stenosis between 40 and 70% with napkin ring like abnormality. There is an additional mid vessel 30% stenosis. The circumflex artery Is a dominant vessel gives rise to a large bifurcating ramus intermedius. Proximally the ramus intermedius has 30% stenoses while the superior branch of the ramus intermedius has a hazy ostial 50% stenosis. This is a 2.25 mm vessel while the inferior 2 mm vessel has ostial 30 to 40% stenosis.. The circumflex artery then has 30% stenosis immediately distal to the ramus intermedius. The first obtuse marginal artery has proximal 50 and 60% stenosis in the vessel is slightly less than 2 mm in diameter. The true circumflex artery and terminal obtuse marginal artery have 30% stenoses The right coronary artery Is a nondominant vessel and has proximal 30% stenoses with mid vessel 30% stenoses The WHITE ventriculogram reveals Not performed The left ventricular end-diastolic pressure Not measured IMPRESSION Severe proximal LAD disease as described above Successful stenting of the proximal ID severe disease reduced to 0% with 1 drug-eluting stent Persistent moderate to severe stenosis in the ramus intermedius as described above with diffuse moderate disease throughout the circumflex artery PLAN 1. Dual antiplatelet therapy 2. Cardiac rehabilitation 3. Avoidance of tobacco products 4. Risk factor modification 5. LDL less than 55 to be achieved with high intensity statin Electronically signed by : Caden Sims MD 02/26/2023 10:40:18
[2023-02-26 07:56] LABS: Basophils # 0.1 K/mm3 (0-0.2); Basophils % 1.3 % (0.1-2.0); Eosinophils # 0.4 K/mm3 (0.0-0.4); Eosinophils % 4.5 % (0.1-12.0); Hematocrit 47.8 % (42.0-52.0); Lymphocytes # 2.4 K/mm3 (0.7-4.5); Lymphocytes % 29.1 % (10-50); Mean Corpuscular HGB Conc 33.4 g/dL (31.8-35.4); Mean Corpuscular Hemoglobin 30.9 pg (27.0-31.2); Mean Corpuscular Volume 92.5 fl (80-94); Mean Platelet Volume 7.8 fl (7.4-10.4); Monocytes # 0.5 K/mm3 (0.1-1.0); Monocytes % 5.6 % (1.7-9.3); Neutrophils % 59.6 % (37.0-80.0); Platelet Count 197 K/mm3 (142-424); Red Blood Count 5.17 M/mm3 (4.60-6.20); Red Cell Distribution Width 13.3 % (11.5-17.5); White Blood Count 8.4 K/mm3 (4.8-10.8)
[2023-02-26 08:01] LABS: Anion Gap 8.9 mEq/L (5-15); Blood Urea Nitrogen 18 mg/dl (9-20); Calcium 8.9 mg/dl (8.4-10.2); Carbon Dioxide 27 mmol/L (22.0-30.0); Chloride 105 mmol/L (98-107); Creatinine Clearance Estimated 111 mL/min (50-200); Estimated Glomerular Filt Rate 74 ml/min (>60); GFR (African American) 89 ML/MIN (>60); Glucose 96 mg/dl (74-100); Potassium 3.9 mmoL/L (3.5-5.1); Sodium 137 mmol/L (136-145)
[2023-02-26] MEDS: VERAPAMIL 2.5MG/ML 2ML VIAL 2.5 MG IV (09:39)
[2023-02-26] MEDS: diphenhydrAMINE 50MG/ML VIAL 50 MG IV (09:39)
[2023-02-26] MEDS: LIDOCAINE 1% 10ML MDV 20 ML IJ (09:40)
[2023-02-26] MEDS: HEPARIN 1,000 UNITS/ML 10ML VIAL (CATH LAB) 10000 UNIT IV ×2 (09:40→10:20)
[2023-02-26] MEDS: HEPARIN 1,000 UNITS/500ML NS (CATH LAB) 3000 UNIT IV (09:40)
[2023-02-26] MEDS: NITROGLYCERIN 800MCG/8ML SYR (CATH LAB) 800 MCG IA (09:40)
[2023-02-26] MEDS: 0.9 % SODIUM CHLORIDE 500 ML 25 ML IV (09:40)
[2023-02-26] MEDS: MIDAZOLAM HCL 1MG/1ML 5ML VIAL 1 MG IV (10:20)
[2023-02-26] MEDS: FENTANYL 100MCG/2ML VIAL 50 MCG IV (10:20)
[2023-02-26 10:40] LABS: CATHL Activated Clotting Time > 400 SEC (74-125)
[2023-02-26] MEDS: IOPAMIDOL-370 (76%);100ML BOTTLE 150 ML IV (10:42)
--- NOTE | 2023-02-26 13:56 | SUR.PHASEII ---
PT CALLED STAFF INTO THE ROOM. R RADIAL WRIST BAND WAS SLIGHTLY BLEEDING WHILE HE WAS GETTING DRESSED. AIR APPLIED BACK INTO THE BAND. BLEEDING CONTROLLED.
--- NOTE | 2023-02-26 14:27 | SUR.PHASEII ---
1410 radial band removed with no issues noted.
== END 2023-02-26 14:25 | disposition home or self-care (01) ==
PROVIDERS: PCP Nurse Practitioner Family; Visit Provider Internal Medicine
DX: E78.5 Hyperlipidemia, unspecified (principal); I10 Essential (primary) hypertension; I25.118 Atherosclerotic heart disease of native coronary artery with other forms of angina pectoris; I77.9 Disorder of arteries and arterioles, unspecified; N28.9 Disorder of kidney and ureter, unspecified; R06.00 Dyspnea, unspecified; Z95.5 Presence of coronary angioplasty implant and graft; I65.23 Occlusion and stenosis of bilateral carotid arteries; Z79.899 Other long term (current) drug therapy
CPT/HCPCS: 80048; 85025; 85347; 92928; 92978; 93454; 99152; 99153; C1725; C1769; C1876; C9600; J1644; Q9967

== ENCOUNTER 2023-02-28 12:38 | Outpatient (CLI) | payer MEDICARE, OTHER, SELFPAY ==
--- NOTE | 2023-02-28 12:38 | CA_ITS ---
APPROVED REPORT EXAM: Comprehensive 2D, Doppler, and color-flow Echocardiogram Sanitation Officer: Juany Cabrera CRT Ht: 6 ft 0 in Wt: 260lbs BSA: 2.38 BP: 132/78 mmHg Indications: Shortness of Breath, Fatigue, CAD, Hyperlipidemia, Hypertension/HDD,Stent 2D Dimensions LA Volume 51.20 mL LA Volume Index 21.00 mL/m2 (M/F) 16-34 M-Mode Dimensions RVDd 2.93 cm (0.9-2.6) LA Diam 3.02 cm (1.9-4.0) LVDd 5.02 cm (3.5-5.7) LVDs 3.34 cm (3.5-5.7) IVSd 1.03 cm (0.6-1.1) PWd 1.03 cm (0.6-1.1) EF (Teich) 61.90% FS 33.50% EDV (Teich) 119.30 mL TAPSE 2.29 (<1.7) ESV (Teich) 45.40 mL LV Diastology E Decel Time 170 (160-240 msec) E/A Ratio 0.69 MED A' 10.20 cm/s LAT A' 12.60 cm/s Aortic Valve AO Peak GR. 4.30 mmHg Mitral Valve MV E Max Boris. 54.0 (40-130 cm/s) MV A Velocity 79.0 (40-130 cm/s) E/A Ratio 0.69 MV PHT 50.0 ms Pulmonary Valve PV Peak Velocity 105.0 (50-150 cm/s) Tricuspid Valve TR P. Velocity 246.00 cm/s RAP Estimate 10.00 mmHg RVSP 34.30 mmHg Left Ventricle The left ventricle is normal size. The left ventricular systolic function is low normal. Th there is increased LV wall thickness. There is low normal LV segmental wall motion. The left ventricular diastolic function is normal. LVEF is 50%. Right Ventricle The right ventricle is mildly dilated. The right ventricular systolic function is normal. Atria The left atrium size is normal. The right atrium size is normal. There is no Doppler evidence of interatrial shunt. Aortic Valve The aortic valve is mildly thickened. There is no aortic valvular stenosis. No aortic regurgitation is present. Mitral Valve The mitral valve is normal in structure. No evidence of mitral valve stenosis. Trace mitral regurgitation. Tricuspid Valve The tricuspid valve leaflets are thin and pliable. Trace tricuspid regurgitation. There is insufficient TR jet to estimate RVSP. Pulmonic Valve The pulmonary valve is normal in structure. Trace pulmonic regurgitation. Great Vessels The aortic root is normal in size. The ascending aorta is not well-visualized. IVC is normal in size and collapses >50% with inspiration. Pericardium There is no pericardial effusion. Other Information Study Quality: Fair Conclusion Low normal LV systolic function (LVEF 50%). Mild RV dilation with normal RV function. No significant valvular stenosis or regurgitation. Electronically signed by : Bhumika Perea MD 03/02/2023 21:45:48
== END 2023-02-28 23:59 ==
LOC: RT 12:38
PROVIDERS: PCP Nurse Practitioner Family; Visit Provider Internal Medicine
DX: E78.5 Hyperlipidemia, unspecified (principal); I10 Essential (primary) hypertension; I20.89 Other forms of angina pectoris; I77.9 Disorder of arteries and arterioles, unspecified; N28.9 Disorder of kidney and ureter, unspecified; R06.00 Dyspnea, unspecified; Z95.5 Presence of coronary angioplasty implant and graft
CPT/HCPCS: 93306

== ENCOUNTER 2023-03-05 08:49 | Outpatient (CLI) | payer MEDICARE, OTHER, SELFPAY ==
[2023-03-05 09:22] LABS: Basophils # 0.1 K/mm3 (0-0.2); Basophils % 1.2 % (0.1-2.0); Eosinophils # 0.3 K/mm3 (0.0-0.4); Eosinophils % 4.9 % (0.1-12.0); Hematocrit 45.7 % (42.0-52.0); Hemoglobin 15.6 g/dL (14.1-18.0); Lymphocytes # 1.8 K/mm3 (0.7-4.5); Lymphocytes % 30.3 % (10-50); Mean Corpuscular HGB Conc 34.2 g/dL (31.8-35.4); Mean Corpuscular Volume 93.7 fl (80-94); Mean Platelet Volume 8.1 fl (7.4-10.4); Monocytes # 0.4 K/mm3 (0.1-1.0); Neutrophils # 3.5 K/mm3 (1.8-7.8); Neutrophils % 57.7 % (37.0-80.0); Platelet Count 186 K/mm3 (142-424); Red Blood Count 4.88 M/mm3 (4.60-6.20); Red Cell Distribution Width 13.2 % (11.5-17.5); White Blood Count 6.1 K/mm3 (4.8-10.8)
[2023-03-05 09:54] LABS: Chloride 103 mmol/L (98-107); Sodium 139 mmol/L (136-145)
[2023-03-05 09:55] LABS: Potassium 4.3 mmoL/L (3.5-5.1)
[2023-03-05 09:58] LABS: Anion Gap 13.3 mEq/L (5-15); Blood Urea Nitrogen 19 mg/dl (9-20); Carbon Dioxide 27 mmol/L (22.0-30.0); Estimated Glomerular Filt Rate 60 ml/min (>60); GFR (African American) 72 ML/MIN (>60); Glucose 95 mg/dl (74-100)
== END 2023-03-05 23:59 ==
PROVIDERS: PCP Nurse Practitioner Family; Visit Provider Internal Medicine
DX: I25.10 Atherosclerotic heart disease of native coronary artery without angina pectoris (principal); Z95.5 Presence of coronary angioplasty implant and graft
CPT/HCPCS: 36415; 80048; 85025

== ENCOUNTER 2023-03-14 06:33 | Outpatient (CLI) | payer MEDICARE, OTHER, SELFPAY ==
--- NOTE | 2023-03-14 06:39 | CT_ITS ---
FINAL REPORT TECHNIQUE: Axial images were obtained from the lung apex to the mid abdomen by computed tomography. Coronal and sagittal reformatted images were obtained. Hi-resolution 1.25 mm slices at 10 mm intervals were obtained and reviewed. This study was performed with techniques to keep radiation doses as low as reasonably achievable, (ALARA). Individualized dose reduction techniques using automated exposure control or adjustment of mA and/or kV according to the patient''s size were employed. CLINICAL HISTORY: R06.00 - Dyspnea, unspecified Shortness of breath COMPARISON: None FINDINGS: There is no axillary adenopathy. There is no hilar or mediastinal adenopathy. Heart size is normal. There are severe left coronary artery calcifications. There is no pericardial or pleural effusion. There are several calcified granulomas in the left lung. There is mild scarring. There is no emphysema. No evidence of bronchiectasis is noted. There is no significant interstitial lung disease. No suspicious infiltrate or nodule is identified. Limited images of the upper abdomen are unremarkable. IMPRESSION: No acute process. Reviewed, Interpreted and Dictated by Parvez Servin III, MD Transcribed by Malina Chávez Authenticated and . [facility]
== END 2023-03-14 23:59 ==
LOC: RAD 06:34
PROVIDERS: PCP Nurse Practitioner Family; Visit Provider Physician Assistant
DX: E78.5 Hyperlipidemia, unspecified (principal); I10 Essential (primary) hypertension; I25.10 Atherosclerotic heart disease of native coronary artery without angina pectoris; I51.7 Cardiomegaly; I51.89 Other ill-defined heart diseases; I77.9 Disorder of arteries and arterioles, unspecified; N28.9 Disorder of kidney and ureter, unspecified; R06.00 Dyspnea, unspecified; R06.02 Shortness of breath; Z86.16 Personal history of COVID-19; Z95.5 Presence of coronary angioplasty implant and graft
CPT/HCPCS: 71250

== ENCOUNTER 2023-08-28 09:50 | Outpatient (CLI) | payer MEDICARE, OTHER, SELFPAY ==
[2023-08-28 10:33] LABS: Basophils # 0.1 K/mm3 (0-0.2); Basophils % 1.1 % (0.1-2.0); Eosinophils # 0.3 K/mm3 (0.0-0.4); Eosinophils % 3.9 % (0.1-12.0); Hematocrit 45.9 % (42.0-52.0); Lymphocytes # 1.9 K/mm3 (0.7-4.5); Lymphocytes % 29.5 % (10-50); Mean Corpuscular HGB Conc 32.7 g/dL (31.8-35.4); Mean Corpuscular Hemoglobin 32.1 pg (27.0-31.2); Mean Corpuscular Volume 98.3 fl (80-94); Mean Platelet Volume 8.4 fl (7.4-10.4); Monocytes # 0.3 K/mm3 (0.1-1.0); Monocytes % 5.1 % (1.7-9.3); Neutrophils # 3.8 K/mm3 (1.8-7.8); Neutrophils % 60.3 % (37.0-80.0); Platelet Count 186 K/mm3 (142-424); Red Blood Count 4.67 M/mm3 (4.60-6.20); Red Cell Distribution Width 13.6 % (11.5-17.5); White Blood Count 6.3 K/mm3 (4.8-10.8)
[2023-08-28 10:58] LABS: Chloride 108 mmol/L (98-107); Potassium 4.3 mmoL/L (3.5-5.1); Sodium 139 mmol/L (136-145)
[2023-08-28 11:00] LABS: Alanine Aminotransferase 31 U/L (12-78); Anion Gap 10.3 mEq/L (5-15); Aspartate Amino Transferase 34 U/L (17-59); Bilirubin,Unconjugated 0.9 mg/dL (0.0-1.1); Blood Urea Nitrogen 21 mg/dl (9-20); Carbon Dioxide 25 mmol/L (22.0-30.0); Estimated Glomerular Filt Rate 73 ml/min (>60); GFR (African American) 89 ML/MIN (>60); Triglycerides 86 mg/dl (30-150); VLDL Cholesterol 17 mg/dL (0-40)
[2023-08-28 11:01] LABS: Albumin Level 4.2 g/dl (3.5-5.0); Alkaline Phosphatase 67 U/L (38-126); Bilirubin,Indirect 0.8 mg/dL (0.0-0.9); Bilirubin,Total 0.8 mg/dl (0.2-1.3); Calcium 9.1 mg/dl (8.4-10.2); Chol/HDL Ratio 3.3 (1-3.5); Cholesterol 123 mg/dl (140-200); Glucose 96 mg/dl (74-100); HDL Cholesterol 37 mg/dl (40-60); Magnesium 1.9 mg/dl (1.6-2.3); Total Protein,Serum 6.7 g/dl (6.3-8.2)
[2023-08-28 11:17] LABS: Free T4 (Free Thyroxine) 1.15 ng/dl (0.78-2.19)
[2023-08-28 11:31] LABS: Thyroid Stimulating Hormone 4.24 uIU/mL (0.465-4.68)
== END 2023-08-28 23:59 | disposition home or self-care (01) ==
LOC: LAB 09:51
PROVIDERS: PCP Nurse Practitioner Family; Visit Provider Physician Assistant
DX: R06.09 Other forms of dyspnea (principal); E66.9 Obesity, unspecified; N28.9 Disorder of kidney and ureter, unspecified; I65.23 Occlusion and stenosis of bilateral carotid arteries; E78.2 Mixed hyperlipidemia; I10 Essential (primary) hypertension
CPT/HCPCS: 36415; 80048; 80061; 80076; 83735; 84439; 84443; 85025

== ENCOUNTER 2023-12-19 08:35 | Outpatient (CLI) | payer MEDICARE, OTHER, SELFPAY ==
--- NOTE | 2023-12-19 08:46 | MR_ITS ---
PROCEDURE INFORMATION: Exam: MR Right Lower Extremity Joint Without Contrast, Knee Exam date and time: 12/19/2023 8:48 AM Age: 73 years old Clinical indication: Pain; Knee; Right; Additional info: Right knee pain. Medial and posterior knee pain. Knee instability. TECHNIQUE: Imaging protocol: Magnetic resonance imaging of the right lower extremity joint without contrast. Exam focused on the knee. COMPARISON: No relevant prior studies available. FINDINGS: Bones/joints: Normal bone marrow signal. No worrisome lytic or blastic osseous lesion. Articular cartilage: Mild thinning and signal change in the lateral compartment. Unremarkable in the medial compartment.Diffuse full-thickness/near full-thickness loss of the patellar cartilage, with few small foci of subchondral edema in the upper pole. Near full-thickness loss of the femoral trochlear cartilage. Mild patella [place]. Medial meniscus: Horizontal tear from anterior horn to posterior horn, degenerative appearing. Lateral meniscus: Small radial tear of the posterior horn. Anterior cruciate ligament: Unremarkable. No tear. Posterior cruciate ligament: Unremarkable. No tear. Medial capsule and supporting structures: Unremarkable. No tear. Lateral capsule and supporting structures: Unremarkable. No tear. Extensor mechanism of knee: Unremarkable. Soft tissues: Mild edema in Hoffa's fat pad. Small popliteal cyst.. There is [id number] subcutaneous edema of the anterior and medial knee. No radiopaque foreign body or gas. Normal muscle bulk, morphology and signal. Small knee joint effusion with mild to moderate synovitis. IMPRESSION: 1. No acute fracture or malalignment. No abnormal bone marrow signal to suggest trauma or infection. 2. Mild-moderate soft tissue swelling of the anterior and anteromedial knee. 3. Mild-moderate soft tissue swelling in superior portion Hoffa's fat pad (may be related to patellofemoral degenerative change and altered biomechanics). 4. Grade 4 chondrosis in the patellofemoral compartment, with punctate subchondral edema in the patella. 5. Small joint effusion with synovitis. 6. Degenerative horizontal tear of the medial meniscus. Small radial tear of the lateral meniscus posterior horn. 7. Small popliteal cyst.
== END 2023-12-19 23:59 | disposition home or self-care (01) ==
LOC: RAD 08:35
PROVIDERS: PCP Nurse Practitioner Family; Visit Provider Nurse Practitioner Family
DX: M25.561 Pain in right knee (principal)
CPT/HCPCS: 73721

== ENCOUNTER 2024-01-31 12:39 | Outpatient (CLI) | payer MEDICARE, OTHER, SELFPAY ==
--- NOTE | 2024-01-31 12:42 | US_ITS ---
FINAL REPORT CLINICAL HISTORY: CLAUDICATION,REST PAIN,HTN,HLD,CAD COMPARISON: None FINDINGS: ANKLE-BRACHIAL PRESSURE INDICES Pressure indices are as follows: RIGHT LOWER EXTREMITY: Ankle-brachial pressure index: 1.3 Comments: Normal LEFT LOWER EXTREMITY: Ankle-brachial pressure index: 1.3 Comments: Normal CONCLUSION: No evidence of significant obstructive peripheral vascular disease of the lower extremities Reviewed, Interpreted and Dictated by Parvez Servin III, MD Transcribed by Lolis Hou Authenticated and [facility]
== END 2024-01-31 23:59 | disposition home or self-care (01) ==
LOC: RT 12:39
PROVIDERS: PCP Nurse Practitioner Family; Visit Provider Nurse Practitioner Family
DX: I73.9 Peripheral vascular disease, unspecified (principal)
CPT/HCPCS: 93923

== ENCOUNTER 2024-03-26 09:54 | Outpatient (CLI) | payer MEDICARE, OTHER, SELFPAY ==
[2024-03-26 10:18] LABS: Basophils # 0.1 K/mm3 (0-0.2); Basophils % 0.9 % (0.1-2.0); Eosinophils # 0.3 K/mm3 (0.0-0.4); Eosinophils % 3.6 % (0.1-12.0); Hematocrit 45.7 % (42.0-52.0); Hemoglobin 15.3 g/dL (14.1-18.0); Lymphocytes # 1.7 K/mm3 (0.7-4.5); Lymphocytes % 24.2 % (10-50); Mean Corpuscular HGB Conc 33.5 g/dL (31.8-35.4); Mean Corpuscular Volume 92.7 fl (80-94); Mean Platelet Volume 9.7 fl (7.4-10.4); Monocytes # 0.5 K/mm3 (0.1-1.0); Monocytes % 6.7 % (1.7-9.3); Neutrophils # 4.5 K/mm3 (1.8-7.8); Neutrophils % 64.3 % (37.0-80.0); Platelet Count 180 K/mm3 (142-424); Red Blood Count 4.93 M/mm3 (4.60-6.20); Red Cell Distribution Width 12.3 % (11.5-17.5)
[2024-03-26 10:51] LABS: Alanine Aminotransferase 34 U/L (12-78); Albumin Level 4.4 g/dl (3.5-5.0); Alkaline Phosphatase 64 U/L (38-126); Anion Gap 12.9 mEq/L (5-15); Aspartate Amino Transferase 34 U/L (17-59); Bilirubin,Direct 0.2 mg/dl (0.0-0.4); Bilirubin,Indirect 0.5 mg/dL (0.0-0.9); Bilirubin,Total 0.7 mg/dl (0.2-1.3); Bilirubin,Unconjugated 0.6 mg/dL (0.0-1.1); Blood Urea Nitrogen 15 mg/dl (9-20); Calcium 9.6 mg/dl (8.4-10.2); Carbon Dioxide 28 mmol/L (22.0-30.0); Chloride 104 mmol/L (98-107); Chol/HDL Ratio 3.6 (1-3.5); Cholesterol 116 mg/dl (140-200); Estimated Glomerular Filt Rate 73 ml/min (>60); GFR (African American) 89 ML/MIN (>60); Glucose 95 mg/dl (74-100); HDL Cholesterol 32 mg/dl (40-60); Magnesium 1.9 mg/dl (1.6-2.3); Potassium 4.9 mmoL/L (3.5-5.1); Sodium 140 mmol/L (136-145); Total Protein,Serum 6.7 g/dl (6.3-8.2); Triglycerides 89 mg/dl (30-150); VLDL Cholesterol 18 mg/dL (0-40)
[2024-03-26 11:02] LABS: Direct LDL Cholesterol 72.39 mg/dL (100-129)
[2024-03-26 11:07] LABS: Free T4 (Free Thyroxine) 1.14 ng/dl (0.78-2.19)
[2024-03-26 11:24] LABS: Thyroid Stimulating Hormone 5.19 uIU/mL (0.465-4.68)
[2024-03-26 12:02] LABS: Hemoglobin A1C 5.2 % (4.0-6.0)
== END 2024-03-26 23:59 | disposition home or self-care (01) ==
LOC: LAB 09:56
PROVIDERS: PCP Nurse Practitioner Family; Visit Provider Nurse Practitioner
DX: I11.9 Hypertensive heart disease without heart failure (principal); I65.23 Occlusion and stenosis of bilateral carotid arteries; E66.9 Obesity, unspecified; N28.9 Disorder of kidney and ureter, unspecified; R06.09 Other forms of dyspnea; Z95.5 Presence of coronary angioplasty implant and graft; E78.5 Hyperlipidemia, unspecified; I25.10 Atherosclerotic heart disease of native coronary artery without angina pectoris; R73.09 Other abnormal glucose; Z68.34 Body mass index [BMI] 34.0-34.9, adult
CPT/HCPCS: 80048; 80061; 80076; 83036; 83735; 84439; 84443; 85025

== ENCOUNTER 2024-05-23 19:48 | Emergency (ER) | payer MEDICARE, OTHER, SELFPAY ==
[2024-05-23] VITALS (10 sets, daily range): BP systolic 95–105; BP diastolic 51–67; PULSE 54–70; RESP 14–18; TEMP 36.8–37.2; O2SAT 93–97; BMI 32.5
--- NOTE | 2024-05-23 20:32 | CT_ITS ---
PROCEDURE INFORMATION: Exam: CT Pelvis Without Contrast, Skeleton Exam date and time: 05/23/2024 9:10 PM Age: 74 years old Clinical indication: Injury or trauma; Fall; Blunt trauma (contusions or hematomas); Bilateral; Hip TECHNIQUE: Imaging protocol: Computed tomography of the pelvis without contrast. Exam focused on the skeleton. Radiation optimization: All CT scans at this facility use at least one of these dose optimization techniques: automated exposure control; mA and/or kV adjustment per patient size (includes targeted exams where dose is matched to clinical indication); or iterative reconstruction. COMPARISON: ABDPELW CT abdomen pelvis w con 06/25/2017 10:02 AM FINDINGS: Bones/joints: Unremarkable. No acute fracture. No dislocation. Soft tissues: Unremarkable. IMPRESSION: No acute findings.
--- NOTE | 2024-05-23 20:32 | CT_ITS ---
PROCEDURE INFORMATION: Exam: CT Head Without Contrast Exam date and time: 05/23/2024 9:02 PM Age: 74 years old Clinical indication: Injury or trauma; Fall; Blunt trauma (contusions or hematomas) TECHNIQUE: Imaging protocol: Computed tomography of the head without contrast. Radiation optimization: All CT scans at this facility use at least one of these dose optimization techniques: automated exposure control; mA and/or kV adjustment per patient size (includes targeted exams where dose is matched to clinical indication); or iterative reconstruction. COMPARISON: No relevant prior studies available. FINDINGS: Brain: Mild asymmetric hypodensity in the LEFT inferior paramedian occipital lobe. Underlying mild chronic microvascular ischemic disease without acute intraparenchymal hemorrhage. No intra-or extra-axial fluid collection, no supra-or infratentorial mass, no mass effect or midline shift. Cerebral ventricles: Mildly dilated ventricles, sulci and basal cisterns without evidence of hydrocephalus. Paranasal sinuses: No significant mucoperiosteal thickening in the visualized paranasal sinuses. Mastoid air cells: No mastoid effusion. Bones: Visualized skull bones are grossly normal. Soft tissues: NA IMPRESSION: 1. Mild asymmetric hypodensity in the LEFT inferior paramedian occipital lobe questionable for acute/subacute infarct versus chronic changes or beam hardening artifact. 2. Recommend MRI for further evaluation/characterization. 3. Underlying chronic microvascular ischemic disease and generalized atrophy without acute intracranial hemorrhage.
--- NOTE | 2024-05-23 20:32 | CT_ITS ---
PROCEDURE INFORMATION: Exam: CT Cervical Spine Without Contrast Exam date and time: 05/23/2024 9:04 PM Age: 74 years old Clinical indication: Injury or trauma; Fall; Blunt trauma TECHNIQUE: Imaging protocol: Computed tomography of the cervical spine without contrast. Radiation optimization: All CT scans at this facility use at least one of these dose optimization techniques: automated exposure control; mA and/or kV adjustment per patient size (includes targeted exams where dose is matched to clinical indication); or iterative reconstruction. COMPARISON: No relevant recent comparison exams. FINDINGS: Bones: Loss of normal curvature of the spine, alignment of the vertebral bodies is grossly normal. No evidence of acute compression fracture or deformity. No discernible displaced fracture involving the vertebral bodies or their posterior elements. Discs/Spinal canal/Neural foramina: Advanced chronic degenerative changes in the cervical spine with underlying ankylosing spondylitis. Lungs: NA Soft tissues: Pre-and paravertebral soft tissues are grossly normal. Atherosclerotic calcification of the carotid arteries. IMPRESSION: Advanced chronic degenerative changes without an acute bony cervical spine injury or abnormality. COMMENTS: Recommend followup with MRI if clinically suspicion for discoligamentous/soft tissue or cord abnormality.
--- NOTE | 2024-05-23 20:32 | CT_ITS ---
PROCEDURE INFORMATION: Exam: CT Thoracic Spine Without Contrast Exam date and time: 05/23/2024 9:04 PM Age: 74 years old Clinical indication: Injury or trauma; Fall; Blunt trauma (contusions or hematomas) TECHNIQUE: Imaging protocol: Computed tomography of the thoracic spine without contrast. Radiation optimization: All CT scans at this facility use at least one of these dose optimization techniques: automated exposure control; mA and/or kV adjustment per patient size (includes targeted exams where dose is matched to clinical indication); or iterative reconstruction. COMPARISON: CR XR THORACIC SPINE 3V 06/03/2020 12:53 PM FINDINGS: Bones/joints: No acute fracture. Normal alignment. No significant disc bulge or herniation. No severe spinal canal stenosis. No significant neural foraminal narrowing. Soft tissues: Unremarkable. IMPRESSION: Unremarkable CT Spine.
--- NOTE | 2024-05-23 20:32 | CT_ITS ---
PROCEDURE INFORMATION: Exam: CT Lumbar Spine Without Contrast Exam date and time: 05/23/2024 9:04 PM Age: 74 years old Clinical indication: Injury or trauma; Fall; Blunt trauma (contusions or hematomas) TECHNIQUE: Imaging protocol: Computed tomography of the lumbar spine without contrast. Radiation optimization: All CT scans at this facility use at least one of these dose optimization techniques: automated exposure control; mA and/or kV adjustment per patient size (includes targeted exams where dose is matched to clinical indication); or iterative reconstruction. COMPARISON: ABDPELW CT abdomen pelvis w con 06/25/2017 10:02 AM FINDINGS: Bones/joints: Nondisplaced fracture of the left transverse process of L2. L1-L2: No significant disc bulge or herniation. No severe spinal canal stenosis. No significant neural foraminal narrowing. L2-L3: No significant disc bulge or herniation. No severe spinal canal stenosis. No significant neural foraminal narrowing. L3-L4: No significant disc bulge or herniation. No severe spinal canal stenosis. No significant neural foraminal narrowing. L4-L5: No significant disc bulge or herniation. No severe spinal canal stenosis. No significant neural foraminal narrowing. L5-S1: No significant disc bulge or herniation. No severe spinal canal stenosis. No significant neural foraminal narrowing. Soft tissues: Unremarkable. IMPRESSION: Nondisplaced fracture of the left transverse process of L2.
--- NOTE | 2024-05-23 20:36 | ED_ITS ---
Discharge Plan Disposition Patient Disposition: Home, Self-Care Prescriptions Prescriptions: New methocarbamol 750 mg tablet 1,500 mg PO TID Qty: 90 0RF lidocaine 5 % adhesive patch,medicated 1 patch topical DAILY Qty: 15 0RF Rx Instructions: leave on most painful area for up to 12 hrs No Action omeprazole 20 mg tablet,delayed release (DR/EC) 20 mg PO DAILY Qty: 90 2RF gabapentin 600 mg tablet 600 mg PO BID aspirin 81 mg tablet,delayed release (DR/EC) 81 mg PO DAILY Qty: 90 1RF ergocalciferol (vitamin D2) 1,250 mcg (50,000 unit) capsule 1,250 mcg PO WEEKLY atorvastatin 80 mg tablet See Rx Instructions .ROUTE .COMPLEX Qty: 30 11RF Dose Instruction: TAKE 1 TABLET DAILY Rx Instructions: TAKE 1 TABLET DAILY nifedipine 30 mg tablet extended release 24hr 30 mg PO DAILY Qty: 90 3RF spironolactone 25 mg tablet See Rx Instructions .ROUTE .COMPLEX Qty: 90 3RF Dose Instruction: TAKE 1 TABLET DAILY Rx Instructions: TAKE 1 TABLET DAILY fenofibrate nanocrystallized [Tricor] 48 mg tablet See Rx Instructions .ROUTE .COMPLEX Qty: 90 3RF Dose Instruction: TAKE 1 TABLET DAILY FOR CHOLESTEROL Rx Instructions: TAKE 1 TABLET DAILY FOR CHOLESTEROL metoprolol succinate 25 mg tablet extended release 24 hr 25 mg PO DAILY Qty: 90 3RF allopurinol 300 MG tablet 300 mg PO DAILY levothyroxine 125 mcg tablet 125 mcg PO DAILY cyanocobalamin (vitamin B-12) 1,000 MCG tablet, sublingual 2,500 mcg SL DAILY albuterol sulfate 90 MCG aerosol powdr breath activated 2 puffs IH Q4-6H nitroglycerin 0.4 MG tablet, sublingual 0.4 mg SL Q5MINP PRN (Reason: Chest Pain) Qty: 1 1RF gabapentin 300 mg capsule 300 mg PO BID Rx Instructions: 300mg a.m 600mg p.m Referrals Follow up/Referrals: Santa Kyle [Primary Care Provider] - See instructions Activity Restrictions/Add. Instructions Additional Instructions/Restrictions: Follow-up with primary care doctor. Please return the emerged part with any new, concerning, or worsening symptoms. Take Tylenol 1000 mg every 6 hours for pain. Take muscle relaxers and use lidocaine patches as well. Clinical Impressions Clinical Impression: Fall Qualifiers: Encounter type: initial encounter Qualified Code(s): W19.XXXA - Unspecified fall, initial encounter Head injury Qualifiers: Encounter type: initial encounter Qualified Code(s): S09.90XA - Unspecified injury of head, initial encounter Back pain Qualifiers: Back pain location: low back pain Chronicity: acute Back pain laterality: left Sciatica presence: with sciatica Sciatica laterality: sciatica of left side Qualified Code(s): M54.42 - Lumbago with sciatica, left side Closed fracture of transverse process of lumbar vertebra Qualifiers: Encounter type: initial encounter Qualified Code(s): S32.009A - Unspecified fracture of unspecified lumbar vertebra, initial encounter for closed fracture Print Language Print Language: Yoruba Discharge ED Provider: Kamran Jackson General Adult HPI <Soumya Strickland (ED), RECORDINGS LIBRARIAN - Last Filed: 05/23/24 21:55> General Chief complaint: Fall Stated complaint: AO 3-29 Fell off side of truck Time Seen by Provider: 05/23/24 20:14 Mode of Arrival: Wheelchair Source of Information: Patient and Spouse Description of Symptoms (Recalled from ER Triage Doc. by RN): pt presents s/p fall from back of pickling grader truck that happend approx 1530 today. Pt reports to landed on his back more to the left. Pt reports pain to upper back radiating down to left hip and leg. Pt denies hiting head, but does report to taking BT History of Present Illness HPI narrative: A 74-year-old male presents to the ED today for complaint of falling off the back of a pickup truck at 3:00 today. He says when he landed he hit the [id number]. He states that he did not hit his head however he did hit his neck and has pain down his spine. He says that he has pain down his left hip and left leg. He states that he is unable to lift his left leg without pain or stand without pain to his left hip. Related Data Home Medications ?Medication ?Instructions ?Recorded ?Confirmed allopurinol 300 mg tablet 300 mg PO DAILY gout 10/29/17 03/26/24 albuterol sulfate 90 mcg/actuation 2 puffs inhalation Q4-6H Asthma 03/20/18 03/26/24 breath activated powder inhaler cyanocobalamin (vitamin B-12) 2,500 mcg sublingual DAILY 03/20/18 03/26/24 1,000 mcg sublingual tablet Supplement levothyroxine 125 mcg tablet 125 mcg PO DAILY thyroid 06/24/18 03/26/24 ergocalciferol (vitamin D2) 1,250 1,250 mcg PO WEEKLY 07/21/21 03/26/24 mcg (50,000 unit) capsule gabapentin 300 mg capsule 300 mg PO BID Pain 08/21/22 03/26/24 gabapentin 600 mg tablet 600 mg PO BID 03/26/24 03/26/24 Previous Rx's ?Medication ?Instructions ?Recorded nitroglycerin 0.4 mg sublingual 0.4 mg sublingual Q5MINP PRN Chest 03/21/18 tablet Pain ##1 aspirin 81 mg tablet,delayed 81 mg PO DAILY preventive #90 tabs 03/25/18 release omeprazole 20 mg tablet,delayed 20 mg PO DAILY GERD #90 tabs 06/24/18 release atorvastatin 80 mg tablet See Rx Instructions .Route 05/13/23 .COMPLEX #30 tabs nifedipine 30 mg tablet,extended 30 mg PO DAILY High blood pressure 05/21/23 release 24 hr #90 tabs spironolactone 25 mg tablet See Rx Instructions .Route 11/12/23 .COMPLEX #90 tabs fenofibrate nanocrystallized 48 mg See Rx Instructions .Route 12/16/23 tablet (Tricor) .COMPLEX #90 tabs metoprolol succinate 25 mg 25 mg PO DAILY High blood pressure 12/16/23 tablet,extended release 24 hr #90 tabs lidocaine 5 % topical patch 1 patch topical DAILY #15 ea 05/23/24 methocarbamol 750 mg tablet 1,500 mg (2 x 750 mg) PO TID #90 05/23/24 tabs Allergies Allergy/AdvReac Type Severity Reaction Status Date / Time lisinopril AdvReac Mild cough Verified 03/26/24 09:14 [facility] <Soumya Strickland (ED), RECORDINGS LIBRARIAN - Last Filed: 05/23/24 21:55> [facility] Disclaimer: The information contained in this section may have been updated after the patient was seen, as this information can be updated by other users. Medical History (Updated 05/23/24 @ 23:31 by Kamran Jackson MD) Elevated glucose Dyspnea Typical angina Carotid artery disease Surgical History History of heart artery stent History of cardiac cath Social History Smoking Status: Unknown if ever smoked alcohol intake: never substance use type: denies use current occupational status: retired Travel in the last 8 weeks: Inside the [place] household members: spouse housing: house current occupational exposures/hazards: No caffeine: Yes Have you lived/traveled outside [place] in past 30 days?: No Contact w/someone who lives/traveled outside US past 30 days?: No Exposure to someone with infectious disease in past 14 days?: No Do you have a fever (greater than 100.4 F or 38 C)?: No Have you tested positive for COVID-19: No Exposed to someone with COVID-19 in past 14 days?: No Do you have a sore throat?: No Do you have a cough?: No Do you have any weakness?: No Do you have any diarrhea?: No Are you experiencing any unusual bleeding?: No Do you have any muscle aches/pain?: No Do you have any abdominal pain?: No Are you experiencing loss of taste or smell?: No Other Medical History Have you received the Flu Vaccine for this season: Yes Have you received the Pneumonia Vaccine: Yes <Soumya Strickland (ED), RECORDINGS LIBRARIAN - Last Filed: 05/23/24 21:55> ROS Obtained: Yes Systems reviewed as appropriate & no additional complaints except as documented Constitutional Constitutional: Reports as per HPI Physical Exam <Soumya Strickland (ED), RECORDINGS LIBRARIAN - Last Filed: 05/23/24 21:55> General General appearance: alert Head Head exam: atraumatic and normocephalic Eye Eye exam: Present PERRL and EOMI ENT ENT exam: Present normal oropharynx and mucous membranes moist Neck Neck exam: Present normal inspection, trachea midline and tenderness Chest Chest inspection: Present normal inspection Respiratory Respiratory exam: Present normal lung sounds bilaterally Cardiovascular Cardiovascular exam: Present regular rate, normal rhythm, normal heart sounds, +S1 and +S2 Abdominal Exam Abdominal exam: Present soft and normal bowel sounds Extremities Exam Extremities exam: Present tenderness, normal capillary refill and edema Back Exam Back exam: Present tenderness, paraspinal tenderness and vertebral tenderness Neurological Exam Neurological exam: Present alert and oriented X3 Skin Skin exam: Present warm, dry and intact Medical Decision Making <Soumya Strickland (ED), RECORDINGS LIBRARIAN - Last Filed: 05/23/24 21:55> Medical Records Screening: Per USPSTF and CDC recommendations, given the prevalence of disease in our region, it is our hospital?s policy to screen for HIV and viral Hepatitis for all patients aged 18 and over and those with ongoing risk factors. Clay Inquiry Pt receiving controlled substance: No Clay was queried for this patient: No Vital Signs: 05/23/24 20:05 05/23/24 20:40 05/23/24 20:45 Temperature 98.9 F Temperature Source Oral Pulse Rate 70 68 Pulse Rate [Radial] 61 Respiratory Rate 14 Blood Pressure Blood Pressure [Right Arm] 105/51 L Blood Pressure Mean [Right Arm] 69 Blood Pressure Position [Right Arm] Sitting 02 Sat by Pulse Oximetry 94 L 97 96 Oxygen Delivery Method Room Air 05/23/24 21:14 05/23/24 21:15 05/23/24 21:30 Temperature Temperature Source Pulse Rate 69 65 66 Pulse Rate [Radial] Respiratory Rate Blood Pressure 100/60 L Blood Pressure [Right Arm] Blood Pressure Mean [Right Arm] Blood Pressure Position [Right Arm] 02 Sat by Pulse Oximetry 96 96 93 L Oxygen Delivery Method 05/23/24 21:45 05/23/24 22:00 05/23/24 22:15 Temperature Temperature Source Pulse Rate 60 60 54 L Pulse Rate [Radial] Respiratory Rate Blood Pressure 95/58 L Blood Pressure [Right Arm] Blood Pressure Mean [Right Arm] Blood Pressure Position [Right Arm] 02 Sat by Pulse Oximetry 95 95 97 Oxygen Delivery Method Orders (Tests/Meds): ED MEDICATIONS Discontinued Medications Generic Name Dose Route Start Last Admin Trade Name Freq PRN Reason Stop Dose Admin Hydrocodone Bitart/Acetaminophen 2 tab 05/23/24 20:37 05/23/24 20:46 Hydrocodone/Apap 5/325 Mg Tablet PO 05/23/24 20:38 2 tab ONCE ONE Administration Methocarbamol 500 mg 05/23/24 20:39 05/23/24 20:45 Methocarbamol 500mg Tablet PO 05/23/24 20:40 500 mg ONCE ONE Administration Methocarbamol 1,000 mg 05/23/24 23:31 05/23/24 23:39 Methocarbamol 500mg Tablet PO 05/23/24 23:32 1,000 mg ONCE ONE Administration ORDERS Category Date Time Status CT bony pelvis Stat Cat Scan 05/23/24 20:[address] cervical spine wo con Stat Cat Scan 05/23/24 20:[address] head/brain wo con Stat Cat Scan 05/23/24 20:[address] lumbar spine wo con Stat Cat Scan 05/23/24 20:[address] thoracic spine wo con Stat Cat Scan 05/23/24 20:32 Completed Medical Decision Narrative: Insert review patient is a 74-year-old male presenting to the emergency department for evaluation of fall off back of truck with multiple injuries. Patient is hemodynamically stable and nontoxic-appearing upon arrival, afebrile. Differential diagnosis includes fracture versus strain sprain cervical spine, thoracic spine and lumbar spine as well as pelvis.. Workup will be conducted with specific imaging. Initial inventions include analgesics.. <Kamran Jackson MD - Last Filed: 05/23/24 23:54> Vital Signs: 05/23/24 20:05 05/23/24 20:40 05/23/24 20:45 Temperature 98.9 F Temperature Source Oral Pulse Rate 70 68 Pulse Rate [Radial] 61 Respiratory Rate 14 Blood Pressure Blood Pressure [Right Arm] 105/51 L Blood Pressure Mean [Right Arm] 69 Blood Pressure Position [Right Arm] Sitting 02 Sat by Pulse Oximetry 94 L 97 96 Oxygen Delivery Method Room Air 05/23/24 21:14 05/23/24 21:15 05/23/24 21:30 Temperature Temperature Source Pulse Rate 69 65 66 Pulse Rate [Radial] Respiratory Rate Blood Pressure 100/60 L Blood Pressure [Right Arm] Blood Pressure Mean [Right Arm] Blood Pressure Position [Right Arm] 02 Sat by Pulse Oximetry 96 96 93 L Oxygen Delivery Method 05/23/24 21:45 05/23/24 22:00 05/23/24 22:15 Temperature Temperature Source Pulse Rate 60 60 54 L Pulse Rate [Radial] Respiratory Rate Blood Pressure 95/58 L Blood Pressure [Right Arm] Blood Pressure Mean [Right Arm] Blood Pressure Position [Right Arm] 02 Sat by Pulse Oximetry 95 95 97 Oxygen Delivery Method Orders (Tests/Meds): ED MEDICATIONS Discontinued Medications Generic Name Dose Route Start Last Admin Trade Name Freq PRN Reason Stop Dose Admin Hydrocodone Bitart/Acetaminophen 2 tab 05/23/24 20:37 05/23/24 20:46 Hydrocodone/Apap 5/325 Mg Tablet PO 05/23/24 20:38 2 tab ONCE ONE Administration Methocarbamol 500 mg 05/23/24 20:39 05/23/24 20:45 Methocarbamol 500mg Tablet PO 05/23/24 20:40 500 mg ONCE ONE Administration Methocarbamol 1,000 mg 05/23/24 23:31 05/23/24 23:39 Methocarbamol 500mg Tablet PO 05/23/24 23:32 1,000 mg ONCE ONE Administration ORDERS Category Date Time Status CT bony pelvis Stat Cat Scan 05/23/24 20:[address] cervical spine wo con Stat Cat Scan 05/23/24 20:[address] head/brain wo con Stat Cat Scan 05/23/24 20:[address] lumbar spine wo con Stat Cat Scan 05/23/24 20:[address] thoracic spine wo con Stat Cat Scan 05/23/24 20:32 Completed Medical Decision Narrative: Insert review patient is a 74-year-old male presenting to the emergency department for evaluation of fall off back of truck with multiple injuries. Patient is hemodynamically stable and nontoxic-appearing upon arrival, afebrile. Differential diagnosis includes intracranial hemorrhage, fracture versus strain sprain cervical spine, thoracic spine and lumbar spine as well as pelvis.. Workup will be conducted with specific imaging. Initial inventions include analgesics.. LUKE attestation I was consulted by the LUKE, and we discussed the complexity of problems being addressed. I approved the treatment and management plan for this patient's care in the emergency department, thus performing a substantial portion of the medical decision making. CT imaging was independently interpreted by me, revealing no acute intracranial pathology. Radiology report noted a hypodensity in the patient's occipital lobe which could represent a subacute stroke, however patient had no visual or neurological symptoms. Indeterminant based on the report, favor artifact. This was discussed with patient and he is to follow-up with his PCP. He did have a left-sided L2 transverse process fracture, nondisplaced. This is amenable to outpatient management and requires no acute intervention. Prescribed multimodal pain control and discharged in stable condition with plan to follow-up with PCP. Kamran Jackson MD Critical Care <Soumya Strickland (ED), RECORDINGS LIBRARIAN - Last Filed: 05/23/24 21:55> Critical Care Time Critical Care Time: No
[2024-05-23] MEDS: METHOCARBAMOL 500MG TABLET 500 MG PO (20:45)
[2024-05-23] MEDS: HYDROCODONE/APAP 5/325 MG TABLET 2 TAB PO (20:46)
[2024-05-23] MEDS: METHOCARBAMOL 500MG TABLET 1000 MG PO (23:39)
== END 2024-05-23 23:53 | disposition home or self-care (01) ==
PROVIDERS: Emergency Provider Student in an Organized Health Care Education/Training Program; PCP Nurse Practitioner Family
DX: S32.009A Unspecified fracture of unspecified lumbar vertebra, initial encounter for closed fracture (principal); S09.90XA Unspecified injury of head, initial encounter; M54.42 Lumbago with sciatica, left side; M54.9 Dorsalgia, unspecified; M25.552 Pain in left hip; M79.605 Pain in left leg; I25.10 Atherosclerotic heart disease of native coronary artery without angina pectoris; I10 Essential (primary) hypertension; Z95.5 Presence of coronary angioplasty implant and graft; Z79.01 Long term (current) use of anticoagulants; W17.89XA Other fall from one level to another, initial encounter; Y93.89 Activity, other specified; Y92.9 Unspecified place or not applicable
CPT/HCPCS: 70450; 72125; 72128; 72131; 72192; 99285

== ENCOUNTER 2024-06-24 09:00 | Outpatient (RCR) | payer MEDICARE, OTHER, SELFPAY | END 2024-06-24 23:59 | disposition home or self-care (01) | LOC: PT 09:00 | PROVIDERS: PCP Nurse Practitioner Family; Visit Provider Physician Assistant | DX: M51.369 Other intervertebral disc degeneration, lumbar region without mention of lumbar back pain or lower extremity pain (principal); M47.816 Spondylosis without myelopathy or radiculopathy, lumbar region; M46.1 Sacroiliitis, not elsewhere classified | CPT/HCPCS: 97110; 97112; 97163; 97530 ==

== ENCOUNTER 2024-06-24 12:43 | Outpatient (CLI) | payer MEDICARE, OTHER, SELFPAY ==
--- OUTSIDE RECORDS SUMMARY | 2024-06-24 12:46 | XMS_ITS | Continuity of Care Document ---
Author Name [facility] Organization [facility] Care Team Providers Care Advertising Strategist Name Role Phone [facility] Unavailable Unavailable Medications Combined list of outpatient medications from Department of Defense and Veterans Affairs facilities.Medications provided include 1) outpatient medications from the last 15 months, and 2) patient-reported medications. Medication Details Route Status Patient Instructions Prescription Expires Prescription Number Last Dispense Date Ordering Provider Order Date Order Qty Source ALLOPURINOL (ALLOPURINO L), 300MG, TABLET, ORAL, '[facility], 500 ea. BOTTLE Active [id number] 2023 90 Pharmac y Data Transac tion Service Facilit y ATORVASTATI N CALCIUM (atorvastat in calcium), 40 MG, TABLET, ORAL, JAHAIRA PHARMACEU, 1000 ea. BOTTLE Cancele d [id number] : 2023 0 Pharmac y Data Transac tion Service Facilit y ATORVASTATI N CALCIUM (atorvastat in calcium), 80 MG, TABLET, ORAL, JAHAIRA PHARMACEU, 500 ea. BOTTLE Active [id number] 2023 90 Pharmac y Data Transac tion Service Facilit y GABAPENTIN (gabapentin ), 300 MG, CAPSULE, ORAL, XLCARE PHARMACE, 270 ea. BOTTLE Active [id number] 2023 270 Pharmac y Data Transac tion Service Facilit y NIFEDIPINE ER (nifedipine ), 30 MG, TAB ER 24, ORAL, [facility], 100 ea. BOTTLE Active [id number] 2023 90 Pharmac y Data Transac tion Service Facilit y NIFEDIPINE ER (nifedipine ), 30 MG, TAB ER 24, ORAL, OCEANSIDE PHARM, 100 ea. BOTTLE Active [id number] 2023 90 Pharmac y Data Transac tion Service Facilit y OMEPRAZOLE (omeprazole ), 20 MG, CAPSULE DR, ORAL, [employer], 1000 ea. BOTTLE Cancele d [id number] : 2023 0 Pharmac y Data Transac tion Service Facilit y OMEPRAZOLE (omeprazole ), 20 MG, CAPSULE DR, ORAL, [employer], 1000 ea. BOTTLE Active [id number] 2023 90 Pharmac y Data Transac tion Service Facilit y OMEPRAZOLE (omeprazole ), 20 MG, CAPSULE DR, ORAL, TM, 1000 ea. BOTTLE Active [id number] 2023 90 Pharmac y Data Transac tion Service Facilit y OMEPRAZOLE (omeprazole ), 20 MG, CAPSULE DR, ORAL, TM, 1000 ea. BOTTLE Cancele d [id number] : 2023 0 Pharmac y Data Transac tion Service Facilit y SYNTHROID (LEVOTHYROX INE SODIUM), 125MCG, TABLET, ORAL, [facility] 1000 ea. BOTTLE Cancele d [id number] : 2023 0 Pharmac y Data Transac tion Service Facilit y VITAMIN D2 (ergocalcif vee (vitamin D2)), 1250 MCG, CAPSULE, ORAL, [employer], 100 ea. BOTTLE Active [id number] 2023 12 Pharmac y Data Transac tion Service Facilit y Allergies, Adverse Reactions, Alerts Combined list of allergies from Department of Defense and Veterans Affairs facilities. It does not include entries that were removed or entered in error. Substance Category Reaction Severity Reaction type Status Date Reported Comments Source No Known Allergies Drug allergy (disorder) active 05/24/2007 [facility] [place] Immunizations Combined list of available immunizations from the Department of Defense and Veterans Affairs facilities. Immunization Series Date Given Administered By Site Reaction Lot Number CVX Code Drug Land Survey Technician Status Comments Source COVID-19, mRNA, LNP-S, PF, 100 mcg or 50 mcg dose 2021 [employer] (MOD) Not Given COVID-19, mRNA, LNP-S, PF, 100 mcg or 50 mcg dose DoD Influenza vaccine, quadrivalent, adjuvanted 2019 DEBGRISELDA, () Not Given Influenza vaccine, quadrival ent, adjuvante d DoD Pneumococcal conjugate PCV 13 2019 DEBUSK, () Not Given Pneumococ carmela conjugate PCV 13 DoD Hep A, adult 2018 BAUTISTA WHITE () Not Given Hep A, adult DoD Hep A, adult 2017 BAUTISTA WHITE L () Not Given Hep A, adult DoD Tdap 2014 JAMA, () Not Given Tdap DoD Procedures Combined list of: 1) Procedures from Department of Veterans Affairs facilities going back up to thelast 18 months, not all [place] non-surgical procedures are included; 2) All procedures from the Department of Defense facilities. Procedure Procedure Type Code Date Perfomer Comments Dhaval e HANDLING AND/OR CONVEYANCE O F SPECIMEN FOR TRANSFER FROM THE OFFICE TO A LABORATORY 04/05/2003 [facility] INDIVIDUAL PSYCHOTHERAPY, INSIGHT ORIENTED, BEHAVIOR MODIFYING AND/OR SUPPORTIVE, IN AN OFFICE OR OUTPATIENT FACILITY, APPROXIMATELY 20 TO 30 MINUTES [id number] WITH THE PATIENT 04/05/2003 [facility] AMBULATORY BLOOD PRESSURE MONITORING, UTILIZING REPORT-GENERATING SOFTWARE, AUTOMATED, WORN CONTINUOUSLY FOR 24 HOURS OR LONGER; RECORDING ONLY 12/17/2002 [facility] POSTOPERATIVE FOLLOW-UP VISIT, NORMALLY INCLUDED IN THE SURGICAL PACKAGE, INDICATE THAT EVALUATION & MANAGEMENT SERVICE WAS PERFORMED DURING A POSTOPERATIVE PERIOD REASON RELATED ORIGINAL PROCEDURE 10/05/2003 [facility] NOC DRUGS, OTHER THAN INHALATION DRUGS, ADMINISTERED THROUGH DME 09/27/2003 [facility] ELECTROCARDIOGRAM, ROUTINE ECG WITH AT LEAST 12 LEADS; WITH INTERPRETATION AND REPORT 09/23/2003 [facility] OPHTHALMOLOGICAL SERVICES: MEDICAL EXAMINATION AND EVALUATION WITH INITIATION OF DIAGNOSTIC AND TREATMENT PROGRAM; COMPREHENSIVE, NEW PATIENT, 1 OR MORE VISITS 09/08/2003 [facility] ELECTROCARDIOGRAM, ROUTINE ECG WITH AT LEAST 12 LEADS; INTERPRETATION AND REPORT ONLY 09/01/2003 [facility] PURE TONE AUDIOMETRY (THRESHOLD); AIR ONLY 09/01/2003 [facility] Social History Combined list of available smoking, tobacco, and other social history from Department of Defense and Veterans Affairs facilities. Social History Type Response Date Comment Sourc e This section is an empty social history section. [facility]
--- NOTE | 2024-06-24 12:47 | MR_ITS ---
FINAL REPORT CLINICAL HISTORY: FALL [address] scan of the head. COMPARISON: CT of the head 05/23/2024 FINDINGS: Multi planar MR imaging was obtained through the brain without contrast. The midline structures appear intact. There is no evidence of Chiari malformation. Mild age-appropriate atrophy is present. On T2 and flair axial images the brain parenchyma is homogeneous. There are a few small foci of increased signal in the deep white matter, consistent with mild changes of ischemic microvascular disease. On diffusion-weighted images there is no evidence of restricted diffusion. The visualized paranasal sinuses demonstrate normal signal voids. The seventh and eighth nerve root complexes are intact. IMPRESSION: Mild age-appropriate atrophy and mild changes of ischemic microvascular disease. No evidence of a subacute or chronic infarct in the left occipital lobe is identified. Reviewed, Interpreted and Dictated by Parker White MD Transcribed by Denice Fulton Authenticated and . [facility]
== END 2024-06-24 23:59 | disposition home or self-care (01) ==
LOC: RAD 12:44
PROVIDERS: PCP Nurse Practitioner Family; Visit Provider Nurse Practitioner Family
DX: R22.0 Localized swelling, mass and lump, head (principal)
CPT/HCPCS: 70551

== ENCOUNTER 2024-07-08 09:00 | Outpatient (RCR) | payer MEDICARE, OTHER, SELFPAY | END 2024-07-08 23:59 | disposition home or self-care (01) | LOC: PT 09:00 | PROVIDERS: PCP Nurse Practitioner Family; Visit Provider Physician Assistant | DX: M51.369 Other intervertebral disc degeneration, lumbar region without mention of lumbar back pain or lower extremity pain (principal) | CPT/HCPCS: 97110; 97530 ==

== ENCOUNTER 2024-09-17 10:15 | Outpatient (CLI) | payer MEDICARE, OTHER, SELFPAY ==
--- OUTSIDE RECORDS SUMMARY | 2024-09-17 09:39 | XMS_ITS | Continuity of Care Document ---
Author Name [facility] Organization [facility] Care Team Providers Care Direct Chill Caster Name Role Phone [facility] Unavailable Unavailable Medications Combined list of outpatient medications from Department of Defense and Veterans Affairs facilities.Medications provided include 1) outpatient medications from the last 15 months, and 2) patient-reported medications. Medication Details Route Status Patient Instructions Prescription Expires Prescription Number Last Dispense Date Ordering Provider Order Date Order Qty Source GABAPENTIN (gabapentin ), 300 MG, CAPSULE, ORAL, [facility]ARMACE, 270 ea. BOTTLE Active [id number] 4 2023 270 Pharmac y Data Transac tion Service Facilit y VITAMIN D2 (ergocalcif vee (vitamin D2)), 1250 MCG, CAPSULE, ORAL, AVKARE, 100 ea. BOTTLE Active [id number] 4 2023 12 Pharmac y Data Transac tion Service Facilit y Allergies, Adverse Reactions, Alerts Combined list of allergies from Department of Defense and Veterans Affairs facilities. It does not include entries that were removed or entered in error. Substance Category Reaction Severity Reaction type Status Date Reported Comments Source No Known Allergies Drug allergy (disorder) active 05/24/2007 [facility] Immunizations Combined list of available immunizations from the Department of Defense and Veterans Affairs facilities. Immunization Series Date Given Administered By Site Reaction Lot Number CVX Code Drug Resident Care Manager Rn Status Comments Source COVID-19, mRNA, LNP-S, PF, 100 mcg or 50 mcg dose 2021 [employer] (MOD) Not Given COVID-19, mRNA, LNP-S, PF, 100 mcg or 50 mcg dose [facility] Influenza vaccine, quadrivalent, adjuvanted 2019 CHRISTOPHER, () Not Given Influenza vaccine, quadrival ent, adjuvante d DoD Pneumococcal conjugate PCV 13 2019 CHRISTOPHER, () Not Given Pneumococ carmela conjugate PCV 13 DoD Hep A, adult 2018 [facility] WHITE () Not Given Hep A, adult DoD Hep A, adult 2017 [facility]UT[facility]A WHITE () Not Given Hep A, adult DoD Tdap 2014 WILEY, () Not Given Tdap DoD Procedures Combined list of: 1) Procedures from Department of Veterans Affairs facilities going back up to thelast 18 months, not all [place] non-surgical procedures are included; 2) All procedures from the Department of Defense facilities. Procedure Procedure Type Code Date Perfomer Comments Dhaval e HANDLING AND/OR CONVEYANCE O F SPECIMEN FOR TRANSFER FROM THE OFFICE TO A LABORATORY 04/05/2003 [facility] INDIVIDUAL PSYCHOTHERAPY, INSIGHT ORIENTED, BEHAVIOR MODIFYING AND/OR SUPPORTIVE, IN AN OFFICE OR OUTPATIENT FACILITY, APPROXIMATELY 20 TO 30 MINUTES [id number] WITH THE PATIENT 04/05/2003 [facility] AMBULATORY BLOOD PRESSURE MONITORING, UTILIZING REPORT-GENERATING SOFTWARE, AUTOMATED, WORN CONTINUOUSLY FOR 24 HOURS OR LONGER; RECORDING ONLY 12/17/2002 [facility] POSTOPERATIVE FOLLOW-UP VISIT, NORMALLY INCLUDED IN THE SURGICAL PACKAGE, INDICATE THAT EVALUATION & MANAGEMENT SERVICE WAS PERFORMED DURING A POSTOPERATIVE PERIOD REASON RELATED ORIGINAL PROCEDURE 10/05/2003 [facility] NOC DRUGS, OTHER THAN INHALATION DRUGS, ADMINISTERED THROUGH DME 09/27/2003 [facility] ELECTROCARDIOGRAM, ROUTINE ECG WITH AT LEAST 12 LEADS; WITH INTERPRETATION AND REPORT 09/23/2003 [facility] OPHTHALMOLOGICAL SERVICES: MEDICAL EXAMINATION AND EVALUATION WITH INITIATION OF DIAGNOSTIC AND TREATMENT PROGRAM; COMPREHENSIVE, NEW PATIENT, 1 OR MORE VISITS 09/08/2003 [facility] ELECTROCARDIOGRAM, ROUTINE ECG WITH AT LEAST 12 LEADS; INTERPRETATION AND REPORT ONLY 09/01/2003 [facility] PURE TONE AUDIOMETRY (THRESHOLD); AIR ONLY 09/01/2003 [facility] Social History Combined list of available smoking, tobacco, and other social history from Department of Defense and Veterans Affairs facilities. Social History Type Response Date Comment Sourkadi e This section is an empty social history section. [facility]
--- OUTSIDE RECORDS SUMMARY | 2024-09-17 10:17 | XMS_ITS | Data Portability ---
Author Organization [employer] [place] - MSE Address [address] [place] [address] Assessment No assessment recorded. Plan of Treatment Reminders Order Date Submit Date Provider Last Modified By Organization Details Last Modified Time Details Appointments None recorded. Lab lipid panel, serum 2024 025 NAI [facility]), [address] [place], [address], 5 11:10:49 CMP, serum or plasma 2024 025 [facility]I [facility] [address] [place], [address], 5 11:10:49 vitamin D, 25-hydroxy, total, serum 2024 025 NAI [facility]), [address] [place], [address], 5 11:10:50 drug screen, urine 2024 025 NAI [facility]), [address] [place], [address], 5 19:07:55 unlisted lab - gabapentin, urine 2024 025 NAI [facility]), [address] [place], [address], 5 19:07:56 TSH, ultra-sensi tive, serum 2024 025 MILO [facility]), [address] [place], [address], 5 11:10:51 magnesium, serum or plasma 2024 025 MILO [facility] ([facility]), [address] [place], [address], 5 11:10:51 cobalamin and folate panel, serum 2024 025 MILO [facility] ([facility]), [address] [place], [address], 5 11:10:50 CBC w/ auto diff 2024 025 [facility] [address] [place], [address], 5 11:10:48 PSA, total, serum or plasma 2023 024 [facility] [address] [place], [address], 4 08:14:40 TSH + free T4, serum 2023 024 [facility]), [address] [place], [address], 4 08:14:39 Referral orthopedic spine surgeon referral - Dr Jean Ortega [address] [facility], [address] [place], [address], 5 14:11:12 Procedures None recorded. Surgeries None recorded. Imaging MRI, brain, w/o contrast - PLEASE SCHEDULE 06/24/20242024 025 [facility] ([facility]), [address], [place], [address], 5 15:31:36 ankle brachial index, complete - first available appt 2023 024 [facility], [address] [place] [address] [facility] [address] [place], [address], 4 14:33:23 Medication Orders levothyroxi ne 125 mcg tablet 2024 025 MILO [facility], [address] [place] [address], [address], 5 09:15:33 Medrol (Prince) 4 mg tablets in a dose pack 2024 [facility], [address] [place] [address], [address], 5 11:13:06 methocarbam ol 750 mg tablet 2024 025 [facility], [address] [place] [address], [address], 5 16:16:53 hydrocodone 5 mg-acetamin ophen 325 mg tablet 2024 025 [facility], [address] [place] [address], [address], 5 11:13:04 gabapentin 600 mg tablet 2023 024 [email or web address] [facility], [address] [place] [address], [address], 4 13:02:36 Patient TargetsNo targets recorded. Patient InstructionsNo instructions recorded. Reason for Referral Orthopedic Spine Surgeon Ref erral for Fracture of transverse process of lumbar vertebra Dr Jean Ortega Referring Physician: [place], Family Medicine, Encounter Date: 05/25/2024 Results Created Date Observation Date Name Description Value Unit Range Abnormal Flag Note LastModifiedBy Organization Detail LastModifiedTime 11/2501/21/2024 TSH+F REE T4 TSH 6.200 uIU/m L 0.450- 4.500 above high normal Not Available [facility] ([facility]) [address] [place], [address], 01/21/2024 08:14:39 01/20/20 24 01/21/2024 TSH+F REE T4 T4,free(dire ct) 1.21 NG/dL 0.82-1 .77 normal Not Available [facility] ([facility]) [address] [facility], [place], [address], 01/21/2024 08:14:39 01/20/2001/21/2024 PROST ATE-S PECIF IC AG prostate specific Ag 1.0 NG/mL 0.0-4. 0 normal Jackie ECLIA metho dolog y. Accor ding to the Ameri can Urolo gical Assoc iatio n, Serum PSA shoul d decre ase and remai n at undet ectab le level s after radic al prost atect black. The AUA defin es bioch emica l recur rence as an initi al PSA value 0.2 ng/mL or great er follo wed by a subse quent confi rmato ry PSA value 0.2 ng/mL or great er. Value s obtai tony with diffe rent assay metho ds or kits canno t be used inter ozuna eaminot afb . Resul ts canno t be inter prete d as absol derik evide nce of the prese nce or absen ce of judith hair se. Not Available [facility] ([facility]) [address] [facility], [place], [address], 01/21/2024 08:14:40 06/27/1906/27/2024 CBC WITH DIFFE RENTI AL/PL ATELE T WBC 7.2 x10e3 /uL 3.4-10 .8 normal Not Available [facility] ([facility]) [address] [facility], [place], [address], 06/27/2024 11:10:48 06/27/19 25 06/27/2024 CBC WITH DIFFE RENTI AL/PL ATELE T RBC 4.99 x10e6 /uL 4.14-5 .80 normal Not Available [facility] ([facility]) [address] [place], [address], 06/27/2024 11:10:48 06/27/19 25 06/27/2024 CBC WITH DIFFE RENTI AL/PL ATELE T hemoglobin 15.5 g/dL 13.0-1 7.7 normal Not Available [facility] ([facility]) [address] [place], [address], 06/27/2024 11:10:48 06/27/19 25 06/27/2024 CBC WITH DIFFE RENTI AL/PL ATELE T hematocrit 47.2 % 37.5-5 1.0 normal Not Available [facility] ([facility]) [address] [place], [address], 06/27/2024 11:10:48 06/27/19 25 06/27/2024 CBC WITH DIFFE RENTI AL/PL ATELE T MCV 95 fL 79-97 normal Not Available [facility] ([facility]) [address] [place], [address], 06/27/2024 11:10:48 06/27/19 25 06/27/2024 CBC WITH DIFFE RENTI AL/PL ATELE T MCH 31.1 pg 26.6-3 3.0 normal Not Available [facility] ([facility]) [address] [place], [address], 06/27/2024 11:10:48 06/27/19 25 06/27/2024 CBC WITH DIFFE RENTI AL/PL ATELE T MCHC 32.8 g/dL 31.5-3 5.7 normal Not Available [facility] ([facility]) [address] [place], [address], 06/27/2024 11:10:48 06/27/19 25 06/27/2024 CBC WITH DIFFE RENTI AL/PL ATELE T RDW 12.5 % 11.6-1 5.4 Not Available [facility] ([facility]) [address] [facility], [place], [address], 06/27/2024 11:10:48 06/27/19 25 06/27/2024 CBC WITH DIFFE RENTI AL/PL ATELE T platelets 188 x10e3 /uL 150-45 0 normal Not Available [facility] ([facility]) [address] [place], [address], 06/27/2024 11:10:48 06/27/19 25 06/27/2024 CBC WITH DIFFE RENTI AL/PL ATELE T neutrophils 67 % not estab. normal Not Available [facility] ([facility]) [address] [facility], [place], [address], 06/27/2024 11:10:48 06/27/19 25 06/27/2024 CBC WITH DIFFE RENTI AL/PL ATELE T lymphs 23 % not estab. normal Not Available [facility] ([facility]) [address] [facility], [place], [address], 06/27/2024 11:10:48 06/27/19 25 06/27/2024 CBC WITH DIFFE RENTI AL/PL ATELE T monocytes 7 % not estab. normal Not Available [facility] ([facility]) [address] [facility], [place], [address], 06/27/2024 11:10:48 06/27/19 25 06/27/2024 CBC WITH DIFFE RENTI AL/PL ATELE T eos 2 % not estab. normal Not Available [facility] ([facility]) [address] [place], [address], 06/27/2024 11:10:48 06/27/19 25 06/27/2024 CBC WITH DIFFE RENTI AL/PL ATELE T basos 1 % not estab. normal Not Available [facility] ([facility]) [address] [place], [address], 06/27/2024 11:10:48 06/27/19 25 06/27/2024 CBC WITH DIFFE RENTI AL/PL ATELE T immature cells TRIMMING PRESS OPERATOR Not Available [facility] ([facility]) [address] [place], [address], 06/27/2024 11:10:48 06/27/19 25 06/27/2024 CBC WITH DIFFE RENTI AL/PL ATELE T neutrophils (absolute) 4.8 x10e3 /uL 1.4-7. 0 normal Not Available [facility] ([facility]) [address] [place], [address], 06/27/2024 11:10:48 06/27/19 25 06/27/2024 CBC WITH DIFFE RENTI AL/PL ATELE T lymphs (absolute) 1.6 x10e3 /uL 0.7-3. 1 normal Not Available [facility] ([facility]) [address] [place], [address], 06/27/2024 11:10:48 06/27/19 25 06/27/2024 CBC WITH DIFFE RENTI AL/PL ATELE T monocytes(ab solute) 0.5 x10e3 /uL 0.1-0. 9 normal Not Available [facility] ([facility]) [address] [place], [address], 06/27/2024 11:10:48 06/27/19 25 06/27/2024 CBC WITH DIFFE RENTI AL/PL ATELE T eos (absolute) 0.2 x10e3 /uL 0.0-0. 4 normal Not Available [facility] ([facility]) [address] [place], [address], 06/27/2024 11:10:48 06/27/19 25 06/27/2024 CBC WITH DIFFE RENTI AL/PL ATELE T baso (absolute) 0.1 x10e3 /uL 0.0-0. 2 normal Not Available [facility] ([facility]) [address] [facility], [place], [address], 06/27/2024 11:10:48 06/27/19 25 06/27/2024 CBC WITH DIFFE RENTI AL/PL ATELE T immature granulocytes 0 % not estab. Not Available [facility] ([facility]) [address] [facility], [place], [address], 06/27/2024 11:10:48 06/27/19 25 06/27/2024 CBC WITH DIFFE RENTI AL/PL ATELE T immature grans (abs) 0.0 x10e3 /uL 0.0-0. 1 Not Available [facility] ([facility]) [address] [facility], [place], [address], 06/27/2024 11:10:48 06/27/19 25 06/27/2024 CBC WITH DIFFE RENTI AL/PL ATELE T NRBC TRIMMING PRESS OPERATOR Not Available [facility] ([facility]) [address] [place], [address], 06/27/2024 11:10:48 06/27/19 25 06/27/2024 CBC WITH DIFFE RENTI AL/PL ATELE T hematology comments: TRIMMING PRESS OPERATOR Not Available [facility] ([facility]) [address] [place], [address], 06/27/2024 11:10:48 06/27/19 25 06/27/2024 COMP. METAB OLIC PANEL (14) glucose 89 mg/dL 70-99 normal Not Available [facility] ([facility]) [address] [place], [address], 06/27/2024 11:10:49 06/27/19 25 06/27/2024 COMP. METAB OLIC PANEL (14) BUN 22 mg/dL 8-27 normal Not Available [facility] ([facility]) [address] [place] [place], [address], 06/27/2024 11:10:49 06/27/19 25 06/27/2024 COMP. METAB OLIC PANEL (14) creatinine 0.97 mg/dL 0.76-1 .27 normal Not Available [facility] ([facility]) [address] [place] [place], [address], 06/27/2024 11:10:49 06/27/19 25 06/27/2024 COMP. METAB OLIC PANEL (14) eGFR 82 mL/mi n/1.7 3 >59 normal Not Available [facility] ([facility]) [address] [place], [address], 06/27/2024 11:10:49 06/27/19 25 06/27/2024 COMP. METAB OLIC PANEL (14) BUN/creatini ne ratio 23 10-24 normal Not Available [facility] ([facility]) [address] [facility] [place], [address], 06/27/2024 11:10:49 06/27/19 25 06/27/2024 COMP. METAB OLIC PANEL (14) sodium 141 mmol/ L 134-14 4 normal Not Available [facility] ([facility]) [address] [facility] [place], [address], 06/27/2024 11:10:49 06/27/19 25 06/27/2024 COMP. METAB OLIC PANEL (14) potassium 4.8 mmol/ L 3.5-5. 2 normal Not Available [facility] ([facility]) [address] [place], [address], 06/27/2024 11:10:49 06/27/19 25 06/27/2024 COMP. METAB OLIC PANEL (14) chloride 102 mmol/ L 96-106 normal Not Available [facility] ([facility]) [address] [place], [address], 06/27/2024 11:10:49 06/27/19 25 06/27/2024 COMP. METAB OLIC PANEL (14) carbon dioxide, total 22 mmol/ L 20-29 normal Not Available [facility] ([facility]) [address] [place], [address], 06/27/2024 11:10:49 06/27/19 25 06/27/2024 COMP. METAB OLIC PANEL (14) calcium 9.3 mg/dL 8.6-10 .2 normal Not Available [facility] ([facility]) [address] [place], [address], 06/27/2024 11:10:49 06/27/19 25 06/27/2024 COMP. METAB OLIC PANEL (14) protein, total 6.9 g/dL 6.0-8. 5 normal Not Available [facility] ([facility]) [address] [place] [place], [address], 06/27/2024 11:10:49 06/27/19 25 06/27/2024 COMP. METAB OLIC PANEL (14) albumin 4.6 g/dL 3.8-4. 8 normal Not Available [facility] ([facility]) [address] [place] [place], [address], 06/27/2024 11:10:49 06/27/19 25 06/27/2024 COMP. METAB OLIC PANEL (14) globulin, total 2.3 g/dL 1.5-4. 5 Not Available [facility] ([facility]) [address] [place] [place], [address], 06/27/2024 11:10:49 06/27/19 25 06/27/2024 COMP. METAB OLIC PANEL (14) bilirubin, total 0.6 mg/dL 0.0-1. 2 normal Not Available [facility] ([facility]) [address] [place], [address], 06/27/2024 11:10:49 06/27/19 25 06/27/2024 COMP. METAB OLIC PANEL (14) alkaline phosphatase 102 IU/L 44-121 normal Not Available [facility] ([facility]) [address] [place] [place], [address], 06/27/2024 11:10:49 06/27/19 25 06/27/2024 COMP. METAB OLIC PANEL (14) AST (SGOT) 22 IU/L 0-40 normal Not Available [facility] ([facility]) [address] [place] [place], [address], 06/27/2024 11:10:49 06/27/19 25 06/27/2024 COMP. METAB OLIC PANEL (14) ALT (SGPT) 26 IU/L 0-44 normal Not Available [facility] ([facility]) [address] [place], [address], 06/27/2024 11:10:49 06/27/19 25 06/27/2024 LIPID PANEL cholesterol, total 120 mg/dL 100-19 9 normal Not Available [facility] ([facility]) [address] [place], [address], 06/27/2024 11:10:49 06/27/19 25 06/27/2024 LIPID PANEL triglyceride s 50 mg/dL 0-149 normal Not Available [facility] ([facility]) [address] [place], [address], 06/27/2024 11:10:49 06/27/19 25 06/27/2024 LIPID PANEL HDL cholesterol 48 mg/dL >39 normal Not Available [facility] ([facility]) [address] [place], [address], 06/27/2024 11:10:49 06/27/19 25 06/27/2024 LIPID PANEL VLDL cholesterol carmela 12 mg/dL 5-40 Not Available [facility] ([facility]) [address] [place] [place], [address], 06/27/2024 11:10:49 06/27/19 25 06/27/2024 LIPID PANEL LDL chol calc ([facility]) 60 mg/dL 0-99 Not Available [facility] ([facility]) [address] [place] [place], [address], 06/27/2024 11:10:49 06/27/19 25 06/27/2024 LIPID PANEL LDL calc comment: TRIMMING PRESS OPERATOR Not Available [facility] ([facility]) [address] [place] [place], [address], 06/27/2024 11:10:49 06/27/19 25 06/27/2024 VITAM IN B12 AND FOLAT E vitamin B12 >2000 pg/mL 232-12 45 above high normal Not Available [facility] ([facility]) [address] [place], [address], 06/27/2024 11:10:50 06/27/19 25 06/27/2024 VITAM IN B12 AND FOLAT E folate (folic acid), serum 2.8 NG/mL >3.0 below low normal A serum folat e arturo ntrat ion of less than 3.1 ng/mL is consi dered to repre sent clini carmela defic iency . Not Available [facility] ([facility]) [address] [place], [address], 06/27/2024 11:10:50 06/27/19 25 06/27/2024 VITAM IN D, 25-HY DROXY vitamin D, 25-hydroxy 66.4 NG/mL 30.0-1 00.0 Vitam in D defic iency has been defin ed by the Insti tute of Medic ine and an Endoc rine Socie ty pract ice guide line as a level of serum 25-OH vitam in D less than 20 ng/mL (1,2) . The Endoc rine Socie ty went on to [facility] er defin e vitam in D insuf ficie ncy as a level betwe en 21 and 29 ng/mL (2). 1. IOM (Inst itute of Medic ine). 2010. Dieta ry refer ence intpankaj es for calci um and D. Phong shields [place]: [facility] . 2. Holic k [place], [place], Bisch off-F errar i BAKER, et al. Evalu ation , treat ment, and preve ntion of vitam in D defic iency : an Endoc rine Socie ty clini carmela pract ice guide line. JCEM. 2010; 96(7) :1911 -30. Not Available [facility] ([facility]) [address] [place], [address], 06/27/2024 11:10:50 06/27/19 25 06/27/2024 TSH RFX ON ABNOR MAL TO FREE T4 TSH 6.660 uIU/m L 0.450- 4.500 above high normal Not Available [facility] ([facility]) [address] [place], [address], 06/27/2024 11:10:51 06/27/19 25 06/27/2024 TSH RFX ON ABNOR MAL TO FREE T4 T4,free (direct) 1.35 NG/dL 0.82-1 .77 normal Not Available [facility] ([facility]) [address] [place], [address], 06/27/2024 11:10:51 06/27/19 25 06/27/2024 MAGNE SIUM magnesium 2.1 mg/dL 1.6-2. 3 normal Not Available [facility] ([facility]) [address] [place], [address], 06/27/2024 11:10:51 06/27/19 25 06/26/2024 MONIT OR DRUG PROFI LE 14(KRISTINA ) please note: Commen t Drug test resul ts shoul d be inter prete d in the juana xt of clini carmela infor matio n. Patie nt metab olic varia bles, speci fic drug chemi stry, and speci men kimberli cteri stics can affec t test outco me. Techn ical consu ltati on is avail able if a test resul t is incon siste nt with an expec ed outco me. Email : [email or web address] Phone : [phone] Drug brand s, if liste d herei n, are trade altamirano of their respe ctive orthodontist small business owner s. Not Available [facility] ([facility]) [address] [place], [address], 06/30/2024 19:07:55 06/27/19 25 06/27/2024 MONIT OR DRUG PROFI LE 14(MW ) amphetamines screen, urine Negati ve NG/mL cutoff =1000 Not Available [facility] ([facility]) [address] [place], [address], 06/30/2024 19:07:55 06/27/19 25 06/27/2024 MONIT OR DRUG PROFI LE 14(MW ) barbiturates screen, urine Negati ve NG/mL cutoff =200 Not Available [facility] ([facility]) [address] [place], [address], 06/30/2024 19:07:55 06/27/19 25 06/27/2024 MONIT OR DRUG PROFI LE 14(MW ) benzodiazepi elisa screen, urine Negati ve NG/mL cutoff =200 Not Available [facility] ([facility]) [address] [place], [address], 06/30/2024 19:07:55 06/27/19 25 06/27/2024 MONIT OR DRUG PROFI LE 14(MW ) cannabinoid screen, urine Negati ve NG/mL cutoff =20 Not Available [facility] ([facility]) [address] [place], [address], 06/30/2024 19:07:55 06/27/19 25 06/27/2024 MONIT OR DRUG PROFI LE 14(MW ) cocaine (metab.) screen, urine Negati ve NG/mL cutoff =300 Not Available [facility] ([facility]) [address] [place], [address], 06/30/2024 19:07:55 06/27/19 25 06/27/2024 MONIT OR DRUG PROFI LE 14(MW ) opiate screen, urine Negati ve NG/mL cutoff =300 Opiat e test inclu jasper Codei ne, Morph ine, Cobalt morph one, Cobalt codon e. Not Available [facility] ([facility]) [address] [place], [address], 06/30/2024 19:07:55 06/27/19 25 06/27/2024 MONIT OR DRUG PROFI LE 14(MW ) oxycodone/ox ymorphone, urine Negati ve NG/mL cutoff =100 Test inclu jasper Oxyco done and Oxymo rphon e Not Available [facility] ([facility]) [address] [place], [address], 06/30/2024 19:07:55 06/27/19 25 06/27/2024 MONIT OR DRUG PROFI LE 14(MW ) phencyclidin e screen, urine Negati ve NG/mL cutoff =25 Not Available [facility] ([facility]) [address] [place], [address], 06/30/2024 19:07:55 06/27/19 25 06/27/2024 MONIT OR DRUG PROFI LE 14(MW ) methadone screen, urine Negati ve NG/mL cutoff =300 Not Available [facility] ([facility]) [address] [place], [address], 06/30/2024 19:07:55 06/27/19 25 06/27/2024 MONIT OR DRUG PROFI LE 14(MW ) propoxyphene screen, urine Negati ve NG/mL cutoff =300 Not Available [facility] ([facility]) [address] [place], [address], 06/30/2024 19:07:55 06/27/19 25 06/27/2024 MONIT OR DRUG PROFI LE 14(MW ) meperidine screen, urine Negati ve NG/mL cutoff =200 This test was devel oped and its perfo rmanc e kimberli cteri stics deter mined by [facility]. It has not been clear ed or appro chau by the Food and Drug Admin istra tion. Not Available [facility] ([facility]) [address] [place], [address], 06/30/2024 19:07:55 06/27/19 25 06/27/2024 MONIT OR DRUG PROFI LE 14(MW ) tramadol screen, urine Negati ve NG/mL cutoff =200 Not Available [facility] ([facility]) [address] [place], [address], 06/30/2024 19:07:55 06/27/19 25 06/27/2024 MONIT OR DRUG PROFI LE 14(MW ) fentanyl, urine Negati ve pg/mL cutoff =2000 Test inclu jasper Fenta nyl and Norfe ntany l This test was devel oped and its perfo rmanc e kimberli cteri stics deter mined by [facility]. It has not been clear ed or appro chau by the Food and Drug Admin istra tion. Not Available [facility] ([facility]) [address] [facility], [place], [address], 06/30/2024 19:07:55 06/27/19 25 06/27/2024 MONIT OR DRUG PROFI LE 14(MW ) buprenorphin e, urine Negati ve NG/mL cutoff =10 Not Available [facility] ([facility]) [address] [place], [address], 06/30/2024 19:07:55 06/27/19 25 06/27/2024 MONIT OR DRUG PROFI LE 14(MW ) creatinine, urine 160.3 mg/dL 20.0-3 00.0 Not Available [facility] ([facility]) [address] [place], [address], 06/30/2024 19:07:55 06/27/19 25 06/27/2024 MONIT OR DRUG PROFI LE 14(MW ) specific gravity 1.030 Not Available [facility] ([facility]) [address] [place], [address], 06/30/2024 19:07:55 06/27/19 25 06/27/2024 MONIT OR DRUG PROFI LE 14(MW ) pH, urine 5.7 4.5-8. 9 Not Available [facility] ([facility]) [address] [facility], [place], [address], 06/30/2024 19:07:55 06/27/19 25 06/30/2024 GABAP ENTIN , URINE gabapentin, urine >800.0 ug/mL Not Available [facility] ([facility]) [address] [place], [address], 06/30/2024 19:07:56 12/20/19 24 12/19/2023 MRI, knee, w/o contr ast No observ ation record ed. [email or web address] [facility] [address], [place], [address], 12/21/2023 11:16:39 01/31/20 24 01/31/2024 ankle brach ial index , compl ete No observ ation record ed. [email or web address] [facility] [address], [place], [address], 01/31/2024 15:15:26 05/24/19 25 05/23/2024 CT, head + brain , w/o contr ast No observ ation record ed. [email or web address] [facility] [address], [place], [address], 05/25/2024 10:45:43 05/24/19 25 05/23/2024 CT, cervi carmela spine , w/o contr ast No observ ation record ed. [address], [place], [address], 05/25/2024 10:45:28 05/24/19 25 05/23/2024 CT, head, w/o contr ast No observ ation record ed. [place] [id number], [place], [address], 05/25/2024 10:45:03 05/24/19 25 05/23/2024 CT, pelvi s, w/o contr ast No observ ation record ed. [place] [id number], [place], [address], 05/25/2024 10:44:09 05/24/19 25 05/23/2024 CT, thora cic spine , w/o contr ast No observ ation record ed. [address], [place], [address], 05/25/2024 10:43:43 05/24/19 25 05/23/2024 CT, lumba r spine , w/o contr ast No observ ation record ed. [address], [place], [address], 05/25/2024 10:43:22 06/25/19 25 06/24/2024 MRI, brain , w/o contr ast No observ ation record ed. [email or web address] [place] [id number], [place], [address], 06/24/2024 17:49:16 Result Notes None recorded. Problems Name Problem SNOMED Code Status Onset Date Resolution Date Notes Provider Name and Address Organization Details Recorded Time Mixed hyperlip idemia 612593506 Active 2016 Problem Code: E78.2; Problem Code Type: ICD-10; Not Available [facility] 21:53:01 Hyperten sive disorder 16704990 Completed 201606/06/2017 Problem Code: I10; Problem Code Type: ICD-10; Not Available [facility] 21:53:01 Large prostate [id number] Active 2016 Problem Code: N40.0; Problem Code Type: ICD-10; Not Available [facility] 21:53:02 Cough [id number] Completed 201605/12/2016 Problem Code: R05; Problem Code Type: ICD-10; Not Available [facility] 21:53:03 Dyspnea 861659899 Completed 201605/12/2016 Problem Code: R06.02; Problem Code Type: ICD-10; LIZZETH muñoz [employer] 11:30:43 Benign essentia l hyperten blaire 3606393 Completed 201606/06/2017 Problem Code: 401.1; Problem Code Type: ICD-9; Not Available [facility] 21:53:06 Benign prostati c hyperpla gabriele 249239690 Active 2016 Problem Code: 600.00; Problem Code Type: ICD-9; Not Available [facility] 21:53:07 Incision al hernia 296192812 Completed 201611/09/2016 Problem Code: K43.2; Problem Code Type: ICD-10; Not Available [facility] 21:53:01 Iodine deficien cy syndrome 680256725 Completed 201705/15/2019 Problem Code: E01.8; Problem Code Type: ICD-10; Not Available [facility] 21:53:00 Hordeolu m 357985586 Completed 201708/05/2017 Problem Code: H00.019; Problem Code Type: ICD-10; Not Available [facility] 21:53:03 Dysthymi a 66462367 Active 2017 Problem Code: R53.81; Problem Code Type: ICD-10; Not Available [facility] 21:53:03 External hordeolu m 0766298 Completed 201708/05/2017 Problem Code: 373.11; Problem Code Type: ICD-9; Not Available [facility] 21:53:06 Generali zed abdomina l tenderne ss 665459254 Completed 201706/20/2017 Problem Code: R10.817; Problem Code Type: ICD-10; Not Available [facility] 21:53:07 Malaise and fatigue 390302289 Completed 201712/01/2021 Problem Code: 780.79; Problem Code Type: ICD-9; LIZZETH muñoz [facility] [employer] 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 Not Available [facility] 21:53:01 Atherosc lerosis of coronary artery without angina pectoris 18158826769 4103 Active 2019 Not Available [facility] 21:53:01 Body mass index 30+ - obesity 893560139 Completed 201904/22/2020 Problem Code: Z68.32; Problem Code Type: ICD-10; Not Available [facility] 21:53:08 Body mass index 30+ - obesity 634395555 Completed 201904/22/2020 Problem Code: Z68.33; Problem Code Type: ICD-10; Not Available [facility] 21:53:05 Pain in thoracic spine 948427031 Completed 201904/22/2020 Problem Code: M54.6; Problem Code Type: ICD-10; LIZZETH AMADORJACKLYN null, [employer] 2 11:31:34 Pain of left wrist 09393351431 9102 Completed 201904/22/2020 Problem Code: M25.532; Problem Code Type: ICD-10; Not Available [facility] 2 21:53:02 Subjecti ve visual disturba ore 74991791 Completed 202012/01/2021 Problem Code: H53.10; Problem Code Type: ICD-10; LIZZETH AMADORNEAJuve null, [employer] 11:31:34 Pain in thoracic spine 508796537 Completed 202012/01/2021 Problem Code: M54.6; Problem Code Type: ICD-10; LIZZETH AMADORJACKLYN null, [employer] 2 11:31:34 Noninfec tious gastroen teritis 73817112 Completed 202011/15/2020 Not Available [facility] 2 21:53:01 General examinat ion of patient Active 2020 Not Available [facility] 21:53:04 Influenz a vaccine needed 68249783427 06 Active 2020 Problem Code: Z23; Problem Code Type: ICD-10; Not Available [facility] 2 21:53:05 Body mass index 30+ - obesity 535119900 Active 2020 Problem Code: Z68.31; Problem Code Type: ICD-10; Not Available [facility] 21:53:05 Screenin g for malignan t neoplasm of colon Completed 202012/01/2021 LIZZETH AMADORJACKLYN null, [employer] 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 11:31:34 Acute sinusiti s 31191104 Completed 202112/01/2021 Problem Code: J01.90; Problem Code Type: ICD-10; LIZZETH PERRYJACKLYN muñoz, [employer] 11:31:34 COVID-19 543876179 Completed 202112/01/2021 Problem Code: U07.1; Problem Code Type: ICD-10; LIZZETH PERRYJACKLYN muñoz, [employer] 11:31:34 Myositis 75457395 Completed 202112/01/2021 Problem Code: M60.9; Problem Code Type: ICD-10; LIZZETH PERRYJACKLYN muñoz, [employer] 2 11:31:34 Infectio n of sebaceou s cyst 865288016 Active 2024 Santa Kyle APRN [address] [place], [address] , [employer] 5 13:31:22 Problem Notes None recorded. Procedures Surgical History Date Name Laterality Status Provider Name and Address Organization Details Recorded Time 5 I&D completed Santa Kyle APRN [address] [place], [address], [employer] 08/31/2024 13:51:11 7 hernia repair completed Not Available [facility] 10/31/2021 22:56:14 Imaging Results None recorded. Procedure Notes None recorded. Medical Equipment None Reported. Allergies Allergen ID Allergen Name Allergen Category Reaction Reaction Severity Criticality Documentation Date Start Date Code Code System Note Provider Name and Address Organization Details Recorded Time 78485 lisinopri l medicatio n Not available Not available Not available 12/01/2021 18930 RxNorm LIZZETH muñoz [facility] 11:26:45 Medications Name Sig Start Date Stop Date Status Note LastModified by Organization Details LastModified Time diclofenac 1% gel 100gm (otc) APPLY 2 GRAMS TO AREA OF PAIN TWICE DAILY active Not Available Not Available No t Available nifedipine ER 30 mg tablet,exte nded release 24 hr active Not Available Not Available Not Available cyclobenzap rine 10 mg tablet take 1 tablet (10 mg) by oral route q HS prn back spasm 10/21 completed Not Available Not Available Not Available Miralax 17 gram/dose oral powder 1 capful in 8 oz beverage q day 06/06 completed Not Available Not Available Not Available atorvastati n 40 mg tablet take 1 tablet (40 mg) by oral route once daily 10/03 completed Not Available Not Available Not Available methocarbam ol 500 mg tablet take 1 tablet (500 mg) by oral route 4 times per day as needed 04/22 completed Not Available Not Available Not Available atorvastati n 80 mg tablet active Not Available Not Available Not Available gabapentin 600 mg tablet TAKE 1 TABLET TWICE A DAY FOR LEG PAIN 2024 active Not Available Not Available Not Avai lable ibuprofen 800 mg tablet 1 po daily 12/23 completed Not Available Not Available Not Available hydrocodone 5 mg-acetamin ophen 325 mg tablet TAKE ONE TABLET BY MOUTH every SIX hours NEEDED, FOR FOR BACK pain 06/26 completed Not Available Not Available Not Available Toprol XL 50 mg tablet,exte nded release Take 1 tablet(s) by mouth daily 05/14 completed Not Available Not Available Not Available clopidogrel 75 mg tablet take 1 tablet (75 mg) by oral route once daily 04/01 completed Not Available Not Available Not Available sulfamethox azole 800 mg-trimetho prim 160 mg tablet Take 1 tablet every 12 hours by oral route for 14 days, for UTI. 01/19 completed Not Available Not Available Not Available aspirin 81 mg tablet,dimple yed release take 1 tablet (81 mg) by oral route once daily 05/13 completed Not Available Not Available Not Available tramadol 50 mg tablet 1 pill every 8 Hours prn for severe pain 05/14 completed Not Available Not Available Not Available spironolact one 25 mg tablet active Not Available Not Available Not Available levothyroxi ne 100 mcg tablet Take 1 tablet(s) by mouth daily 03/16 completed Not Available Not Available Not Available ceftriaxone 1 gram solution for injection Take 1 g by injection route. 10/03 completed Not Available Not Available Not Available prednisolon e acetate 1 % eye drops,suspe nsion 08/14 completed Not Available Not Available Not Available methocarbam ol 750 mg tablet TAKE ONE TABLET BY MOUTH THREE TIMES DAILY NEEDED FOR MUSCLE SPASMS active Not Available Not Available No t Available nifedipine ER 90 mg tablet,exte nded release 24 hr Take 1 tablet(s) by mouth daily 07/26 completed Not Available Not Available Not Available doxycycline monohydrate 100 mg capsule take 1 capsule (100 mg) by oral route 2 times per day 04/22 completed Not Available Not Available Not Available cephalexin 500 mg capsule take 1 capsule (500 mg) by oral route 4 times per day for 7 days 11/15 completed Not Available Not Available Not Available erythromyci n 5 mg/gram (0.5 %) eye ointment Apply 1/2 inch ribbon of ointment to affected eye(s) tid 06/06 completed Not Available Not Available Not Available levothyroxi ne 125 mcg tablet TAKE 1 TABLET DAILY 30 MINUTES BEFORE BREAKFAST ON AN EMPTY STOMACH 2024 active Not Available Not Available Not Avai lable neomycin-po lymyxin-dex ameth 3.5 mg/mL-10,00 0 unit/mL-0.1 % eye drops SHAKE LIQUID AND INSTILL 1 DROP IN BOTH EYES FOUR TIMES DAILY FOR 4 TO 7 DAYS 08/14 completed Not Available Not Available Not Available promethazin e 25 mg/mL injection solution Take 1 mL by injection route. 10/03 completed Not Available Not Available Not Available lidocaine 5 % topical patch APPLY 1 PATCH BY TOPICAL ROUTE ONCE DAILY (MAY WEAR UP TO 12HOURS.) 06/26 completed Not Available Not Available Not Available promethazin e 25 mg tablet take 1 tablet (25 mg) by oral route every 6 hours as needed 10/25 completed Not Available Not Available Not Available nitroglycer in 0.4 mg sublingual tablet take 1 tablet under the tongue every 5-10 minutes as needed for severe chest pain active Not Available Not Available No t Available gabapentin 300 mg capsule TAKE 1 CAPSULE EVERY MORNING AND 2 CAPSULES EVERY EVENING 01/19 completed Not Available Not Available Not Available omeprazole 20 mg capsule,del ayed release TAKE 1 CAPSULE DAILY 2024 active Not Available Not Available Not Avai lable irbesartan 75 mg tablet take 1 tablet (75 mg) by oral route once daily 08/14 completed Not Available Not Available Not Available allopurinol 300 mg tablet TAKE 1 TABLET DAILY 2024 active Not Available Not Available Not Avai lable pravastatin 20 mg tablet Take 1 tablet(s) by mouth at bedtime 05/14 completed Not Available Not Available Not Available metoprolol succinate ER 25 mg tablet,exte nded release 24 hr take 1 tablet (25 mg) by oral route once daily active Not Available Not Available No t Available methylpredn isolone 4 mg tablets in a dose pack take by MOUTH as directed ON package 06/26 completed Not Available Not Available Not Available Vitamin D2 1,250 mcg (50,000 unit) capsule TAKE 1 CAPSULE ONCE WEEKLY FOR VITAMIN D DEFICIENC Y 2024 active Not Available Not Available Not Avai lable ketoconazol e 2 % topical cream APPLY TO THE AFFECTED AREA(S) BY TOPICAL ROUTE ONCE DAILY 01/19 completed Not Available Not Available Not Available ondansetron 4 mg disintegrat ing tablet dissolve 1 tablet every 6 hours by transling ual route as needed, for nausea. 01/19 completed Not Available Not Available Not Available levothyroxi ne 112 mcg tablet Take 1 tablet(s) by mouth daily 06/21 completed Not Available Not Available Not Available Vitamin B-12 1,000 mcg tablet Take 1 tablet every day by oral route. 2023 active Not Available Not Available Not Avai lable fenofibrate nanocrystal lized 48 mg tablet Take 1 tablet(s) by mouth daily active Not Available Not Available No t Available peg 3350-electr olytes 236 gram-22.74 gram-6.74 gram-5.86 gram solution TAKE 240 MILLILITE RS BY MOUTH EVERY 10 UNTIL FECAL EFFLUENT IS CLEAR 12/01 completed Not Available Not Available Not Available cholecalcif vee (vitamin D3) 1,250 mcg (50,000 unit) capsule Take 1 capsule(s ) by mouth q week 11/22 completed Not Available Not Available Not Available diclofenac 1 % topical gel apply 2 grams to the affected area(s) by topical route 4 times per day prn back pain 12/01 completed Not Available Not Available Not Available Combivent Respimat 20 mcg-100 mcg/actuati on solution for inhalation inhale 1 puff by inhalatio n route 4 times per day ; may take additiona l puffs as needed not to exceed 6 puffs in 24hrs active Not Available Not Available No t Available ProAir RespiClick 90 mcg/actuati on breath activated Take 2 inhalatio n(s) by mouth q 4 to 6 hr 05/14 completed Not Available Not Available Not Available Paxlovid 300 mg (150 mg x 2)-100 mg tablets in a dose pack take 3 tablets by oral route 2 times per day in the morning and evening for 5 days per package direction s 12/01 completed Not Available Not Available Not Available Vitals Date Recorded Body height Body mass index (BMI) Body weight Body temperature Heart rate Oxygen saturation Oxygen saturation in Arterial blood by Pulse oximetry Systolic And Diastolic Provider Name and Address Organization Details Last Updated DateTime 5 182.88 cm 34.2 kg/m2 730173 g 98 [degF] 57 /min 95 % 95 % 105/64 mm[Hg] LIZZETH PERRYNEAR [employer] 5 09:30:06 Date Recorded Body height Body temperature Heart rate Oxygen saturation Oxygen saturation in Arterial blood by Pulse oximetry Systolic And Diastolic Provider Name and Address Organization Details Last Updated DateTime 5 182.88 cm 96.9 [degF] 54 /min 94 % 94 % 97/62 mm[Hg] LIZZETH PERRYNEAR [employer] 5 14:37:50 Date Recorded Body height Body mass index (BMI) Body weight Body temperature Heart rate Oxygen saturation Oxygen saturation in Arterial blood by Pulse oximetry Systolic And Diastolic Provider Name and Address Organization Details Last Updated DateTime 5 182.88 cm 33.8 kg/m2 232823. 94 g 97.9 [degF] 67 /min 94 % 94 % 115/68 mm[Hg] LIZZETH [employer] 5 09:00:41 Date Recorded Body height Body mass index (BMI) Body weight Body temperature Heart rate Oxygen saturation Oxygen saturation in Arterial blood by Pulse oximetry Systolic And Diastolic Provider Name and Address Organization Details Last Updated DateTime 5 182.88 cm 33.4 kg/m2 024443. 88 g 98.4 [degF] 73 /min 93 % 93 % 116/69 mm[Hg] LIZZETH PERRYNEAR [employer] 5 13:24:32 Date Recorded Body height Body mass index (BMI) Body weight Body temperature Heart rate Oxygen saturation Oxygen saturation in Arterial blood by Pulse oximetry Systolic And Diastolic Provider Name and Address Organization Details Last Updated DateTime 4 182.88 cm 33.5 kg/m2 083566. 32 g 98 [degF] 72 /min 94 % 94 % 125/61 mm[Hg] LIZZETH [employer] 4 10:34:29 Social History Question Answer Notes LastModified by Organizat ion Details LastModified Time Tobacco Smoking Status Never Smoker Krissy muñoz [employer] 04/16/2022 08:33:24 Do You Have An Advance Directive? No Information n ot available 12/01/2021 Is Your Home Air Conditioned? Yes Information not available 12/01/2021 Are You Blind Or Do You Have Difficulty Seeing? No Information n ot available 12/01/2021 Are You A Caregiver? No Information not available 12/01/2021 In The 14 Days Before Symptom Onset, Have You Had Close Contact With A Laboratory-confirm ed COVID-19 While That Case Was Ill? No Information n ot available 12/01/2021 In The 14 Days Before Symptom Onset, Have You Had Close Contact With A Person Who Is Under Investigation For COVID-19 While That Person Was Ill? No Information not available 12/01/2021 Have You Been To An Area Known To Be High Risk For COVID-19? No Information not available 12/01/2021 Are You Deaf Or Do You Have Serious Difficulty Hearing? No Information not available 12/01/2021 What Type Of Diet Are You Following? REGULAR Information n ot available 12/01/2021 Have There Been Any Changes To Your Family Or Social Situation? No Information no t available 12/01/2021 Are There Any Guns Present In Your Home? No Information not available 12/01/2021 Do You Have A Medical Power Of Oil Refinery Operator? No Information not available 12/01/2021 What Was The Date Of Your Most Recent Tobacco Screening? 08/31/2024 Information not available 08/31/2024 What Is Your Relationship Status? Information not available 12/01/2021 Do You Use Your Seat Belt Or Car Seat Routinely? Yes Information not available 12/01/2021 Do You Have Smoke And Carbon Monoxide Detectors In Your Home? Yes Information not available 12/01/2021 Are You Passively Exposed To Smoke? No Information no t available 12/01/2021 Are There Any Smokers In Your House? No Information not available 12/01/2021 Do You Participate In Social Media? No Information not available 12/01/2021 Do You Use Sunscreen Routinely? No Information not available 12/01/2021 Has Tobacco Cessation Counseling Been Provided? No Information not available 12/01/2021 Have You Recently Traveled Abroad? No Information not available 12/01/2021 Do You Have Difficulty Walking Or Climbing Stairs? No Information not available 12/01/2021 Are You Currently In School? No Information not available 12/01/2021 Do You Have Any Dietary Restrictions? No Information not available 12/01/2021 Sex: Male Functional Status Question Answer Note LastModified by Organizat ion Details LastModified Time Do you use any illicit or recreational drugs? No Information not available 12/01/2021 Do you or have you ever used any other forms of tobacco or nicotine? No Information not available 12/01/2021 What is your level of alcohol consumption? None Information not available 12/01/2021 Are you currently employed? No Information not available 12/01/2021 Do you have transportation difficulties? No Information not available 12/01/2021 Do you have difficulty doing errands alone? No Information not available 12/01/2021 Are you able to care for yourself? Yes Information not available 12/01/2021 Do you have difficulty dressing or bathing? No Information not available 12/01/2021 Mental Status Question Answer Note LastModified by Organization D etails LastModified Time Do you have difficulty concentrating, remembering or making decisions? No Information no t available 12/01/2021 Family History Relationship Description Onset Age of this Age Resolved Age Notes LastModified by Organization Details LastModified Time Unspecified Relation Family history of alcoholism [email or web address] Not available 04/16 08:33:09 Unspecified Relation Family history of congestive heart failure [email or web address] Not available 2022 08:33:11 Unspecified Relation Family history of Myocardial infarction [email or web address] Not available 04/16 08:33:13 Medical History Condition Response Coronary Artery Disease Y Gout Y Acid Reflux (GERD) Y Hypertension Y Hypothyroidism Y Immunizations Vaccine Type Date Status Note Provider Name and Address Organization Details Recorded Time zoster recombinant 08/15/19 23 completed Santa Kyle APRN [address] [place], [address], [employer] 08/14/2022 12:57:52 Influenza, split virus, quadrivalent, PF 12/02/19 22 completed LIZZETH MYNEAR null, [employer] 12/01/2021 13:17:10 RSV, recombinant, protein subunit RSVpreF, adjuvant reconstituted, 0.5 mL, PF 10/04/19 24 cancelled product out of stock Santa Kyle, [employer]CHNIC[employer] [address] [place], [address], [employer] 10/13/2023 15:42:00 COVID-19, mRNA, LNP-S, PF, 100 mcg/0.5mL dose or 50 mcg/0.25mL dose 04/21/19 21 completed LIZZETH MYNEAR null, [employer] 04/17/2022 09:16:12 Tdap 01/10/20 15 completed Not Available [facility] 10/31/2021 23:52:04 Hep A, adult 07/30/19 19 completed Not Available [facility] 10/31/2021 23:52:04 Influenza, split virus, quadrivalent, PF 11/16/19 21 completed Not Available [facility] 10/31/2021 23:52:05 Influenza, adjuvanted, quadrivalent, PF 12/10/19 20 completed LIZZETH MYNEAR null, [employer] 04/17/2022 09:16:12 COVID-19, mRNA, LNP-S, PF, 100 mcg/0.5mL dose or 50 mcg/0.25mL dose 03/16/19 22 completed LIZZETH MYNEAR null, [employer] 04/17/2022 09:16:12 COVID-19, mRNA, LNP-S, PF, 100 mcg/0.5mL dose or 50 mcg/0.25mL dose 05/20/19 21 completed LIZZETH MYNEAR null, [employer] 04/17/2022 09:16:12 COVID-19, mRNA, LNP-S, bivalent, PF, 50 mcg/0.5 mL or 25mcg/0.25 mL dose 12/15/19 22 completed LIZZETH muñoz, [facility] 04/17/2022 09:16:12 pneumococcal polysaccharide PPV23 03/24/19 20 completed LIZZETH PERRYJACKLYN null, [facility] [employer] 04/17/2022 09:16:12 COVID-19, mRNA, LNP-S, PF, 50 mcg/0.5 mL 12/05/19 24 completed Santa Kyle APRN [address] [place] [address], [address], [facility] [employer] 01/20/2024 10:38:33 Influenza, high-dose, trivalent, PF 12/05/19 24 completed Santa Kyle APRN [address] [place] [address], [address], [facility] [employer] 01/20/2024 10:38:33 zoster recombinant 04/17/19 23 completed Santa Kyle APRN [address] [place] [address], [address], [facility] [employer] 04/17/2022 16:49:25 Past Encounters Encounter ID Performer Location Encounter Start Date Encounter Closed Date Diagnosis/Indication Diagnosis SNOMED-CT Code Diagnosis ICD10 Code Diagnosis Note [id number] Santa Kyle [place] [phone] 12/01/2021 11:17:36 12/01/2021 12:14:39 Idiopathic peripheral autonomic neuropathy 91866259 G90.09 Continue current medication s, he has routine follow-up with cardiology next month. We will give him a flu vaccinatio n today. He will obtain fasting labs at his next appointmen t here in 3 months. Administra tion of influenza vaccine 61090827 Z23 Hypothyroidism 78924823 E03.9 [id number] Santa Kyle APRN [address] [address] 04/17/2022 08:54:58 04/17/2022 10:09:11 Benign prostatic hyperplasia 524054234 N40.0 Hypothyroidism 78601939 E03.9 Continue current medication s. Increase oral fluids. Idiopathic peripheral autonomic neuropathy 18986386 G90.09 Mixed hyperlipidemia 267 609266 E78.2 Vitamin D deficiency 347 94029 E55.9 Atheroscle rosis of coronary artery without angina pectoris 9289010321 35231 I25.10 Hold Irbesartan due to hypotensio n, check BP daily and restart when BP >130/70. Encouraged to increase hydration, 3 bottles water daily. Active or passive immunization 866284438 Z23 [id number] Santa Kyle[address] [address] 08/14/2022 07:55:41 08/14/2022 08:42:47 Idiopathic peripheral autonomic neuropathy 94481766 G90.09 Refill gabapentin Adult heal th examination 145731232 Z00.00 Patient presented to office today for their Medicare Annual Wellness Visit. Education was provided on healthy nutrition, including a diet rich in fruits and vegetables , minimizing simple carbohydra ale, salt, and saturated fats. Encouraged regular cardiovasc ular exercise such as walking at least 30 minutes daily, 5 times per week. Emphasized preventive health measures and educated pt on fall prevention and community- based lifestyle interventi ons to help reduce health risks and promote healthy living. Body mass index 30+ - obesity 178887992 Z68.34 Active or passive immunization 492174845 Z23 [id number] Santaosiris Kyle[address] [address] 11/19/2022 08:53:14 11/19/2022 09:55:37 Hypothyroidism 87194334 E03.9 Continue current medication s. Increase oral fluids. Idiopathic peripheral autonomic neuropathy 65247521 G90.09 Refill gabapentin Vitamin D deficiency 347 09444 E55.9 Atheroscle rosis of coronary artery without angina pectoris 6002309220 01608 I25.10 Tinea cruris 351595562 B 35.6 [id number] Santa Kyle[address] [address] 07/02/2023 15:49:17 07/02/2023 16:35:59 Idiopathic peripheral autonomic neuropathy 21459709 G90.09 Refill gabapentin Body mass index 30+ - obesity 723637774 Z68.34 Hypothyroidism 74237583 E03.9 Continue current medication . [id number] [place] [phone] 09/23/2023 12:55:22 09/23/2023 14:19:32 Fever 454622301 R50.9 Acute urin yan tract infection 767554159 N39.0 Patient presents with symptoms of UTI. Results of dipstick were positive for UTI. Advised to drink clear fluids, reduce sexual activity, Tylenol for pain and take prescribed medication s as instructed . Patient encouraged to follow up within 1 week if not improving. [id number] [place] [phone] 0 10/04/2023 08:50:56 10/04/2023 09:27:59 Active or passive immunization [id number] Z23 Adult heal th examination [id number] Z00.00 Patient presented to office today for their Medicare Annual Wellness Visit. Education was provided on healthy nutrition, including a diet rich in fruits and vegetables , minimizing simple carbohydra ale, salt, and saturated fats. Encouraged regular cardiovasc ular exercise such as walking at least 30 minutes daily, 5 times per week. Emphasized preventive health measures and educated pt on fall prevention and community- based lifestyle interventi ons to help reduce health risks and promote healthy living. Benign pro static hyperplasia [id number] N40.0 Hypothyroidism 86761094 E03.9 Continue current medication . Mixed hyperlipidemia 267 601108 E78.2 Vitamin D deficiency 347 77034 E55.9 Idiopathic peripheral autonomic neuropathy 38359502 G90.09 Refill gabapentin Body mass index 30+ - obesity 651353185 Z68.34 [id number] Santa [address] [address] 12/02/2023 15:46:57 12/02/2023 16:39:02 Pain of right knee joint [id number] 27038 M25.561 RICE, tylenol prn pain, obtain MRI and rule DVT. Xray shows calcificat ions and popliteal mass - possible cyst Pain in ri t lower limb 281597852 M79.481 [id number] [place] [id number] 01/20/2024 10:13:42 01/20/2024 11:59:35 Prostate specific antigen outside reference range [id number] R97.8 Recheck today. Thyroid fu nction tests abnormal 383529340 R94.6 Idiopathic peripheral autonomic neuropathy 80031455 G90.09 Increase gabapentin to 600 mg BID, clay reviewed. Intermitte nt claudication 69865797 I73.9 Obtain BLAINE. [id number] [place] [address] 04/01/2024 09:12:43 04/01/2024 10:02:39 Hypothyroidism 52088710 E03.9 Continue current medication . He does not want to change dose at this time. Recheck TSH and T 4 in 3 months. [id number] Santa Kyle [place] [id number] 05/25/2024 13:59:11 05/25/2024 15:16:13 Fracture of transverse process of lumbar vertebra 936272875 S32.009A L2 Left nondisplac ed fx transverse process. He was dispensed a rollator her in office. Apply ice. Begin meds for pain control and refer to Orthopedic control systems specialist . Clay reviewed. Mass lesion of brain 422 121193 R22.0 Left occipital mass lesion lobe, needs MRI for further eval. [id number] Santa Kyle[address] [address] 06/26/2024 08:51:07 06/26/2024 09:46:45 Hypothyroidism 20958582 E03.9 Continue current medication . He does not want to change dose at this time. Recheck TSH and T 4 in 3 months. Idiopathic peripheral autonomic neuropathy 70513824 G90.09 Increase gabapentin to 600 mg BID, clay reviewed. Mixed hyperlipidemia 267 739990 E78.2 Vitamin D deficiency 347 09412 E55.9 Cramp 45743819 R25.2 Long-term current use of drug therapy 856302960 Z79.258 [id number] Santa Kyle APRN [address] [address] 08/31/2024 13:14:44 08/31/2024 14:02:38 Infection of sebaceous cyst 633903567 L72.3 L08.9 Central upper back. I & D performed. May remove dressing and shower in 24 hours. Keep clean, dry, and covered until healed. Health Concerns Section Related Observation LastModified by Organization Detai ls LastModified Time None Recorded Concern Status LastModified by Organization Details LastModified Time None Recorded Advance Directives Directive N: Payers Insurance Date Sequence Insurance Name Policy Number Policy Pearson Covered Member ID Pearson Member ID Guarantor Name 11/17/2021 1 *SELF PAY* Freddie Barrientos 08/28/2024 [place] [employer] - [facility] Carlos Barrientos Jr [id number] Carlos Barrientos 08/28/2024 1 [place] Carlos Barrientos Jr [id number] Carlos Barrientos 06/26/2024 2 [place] - [employer] - [place] () Carlos Barrientos [id number] Carlos Barrientos 09/02/2024 2 [place] - [facility] - [employer] () Carlos Barrientos [id number] Carlos Barrientos Notes Date Note Type Note Provider Name and Address Organization Details Recorded Time 4 text/htm l HypothyroidReported bypatient.Reason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
--- OUTSIDE RECORDS SUMMARY | 2024-09-17 10:18 | XMS_ITS | Encounter Summary ---
Author Organization Healthcare Address [address] [place] [address] Care Team Providers Care Multi Skilled Operator Name Role Phone Pcp, No Primary Care Provider Unavailabl e Encounter Details Date Type Department Care Team (Late st Contact Info) Description 12/19/2023 Orders Only External Location [address] [place] [address] Santa Kyle, INSOLE CEMENTER [address] [place], [place] [address] Social History Tobacco Use Types Packs/Day Years Used Date Smoking Tobacco: Never Alcohol Use Standard Drinks/Week Comments Yes 0 (1 standard drink = 0.6 oz pur e alcohol) Sex and Gender Information Value Date Recorded Sex Assigned at Not on file Legal Sex Male 8:15 PM EDT Gender Identity Not on file Sexual Orientation Not on file documented as of this encounter Plan of Treatment Not on file documented as of this encounter Procedures Procedure Name Priority Date/Time Associated Diagnosis Comments MR OUTSIDE IMAGES 12/19/2023 8:48 AM EDT documented in this encounter Results * MR transfer of outside films (12/19/2023 8:48 AM EDT) Anatomical Region Laterality Modality Magnetic Resonan ce 12/19/2023 8:48 AM EDT us Santa Kyle INSOLE CEMENTER IMG MRI PROCEDURES Final Res ult documented in this encounter Visit Diagnoses Not on filedocumented in this encounter Care Teams Multi Skilled Operator Relationship Specialty Start Date End Date Pcp, No [address] [place] [address] PCP - General Family Medicine 01/01/24 documented as of this encounter
--- OUTSIDE RECORDS SUMMARY | 2024-09-17 10:18 | XMS_ITS | Clinical Summary ---
Author Organization Healthcare Address [address] [place] [address] Care Team Providers Care Fire Fighting Equipment Specialist Name Role Phone Pcp, No Primary Care Provider Unavailabl e Allergies Active Allergy Reactions Criticality Noted Date Comments Lisinopril Cough Low 02/20/2023 Medications gabapentin (Neurontin) 300 MG capsule 03/25/2023 Active atorvastatin (Lipitor) 80 MG tablet 03/05/2023 Active metoprolol succinate XL (Toprol-XL) 25 MG 24 hr tablet 12/16/2023 Act john Tricor 48 MG tablet Take 1 tablet (48 mg) by mouth 1 (one) time each day. 12/23/2013 Active clopidogrel (Plavix) 75 MG tablet 12/16/2023 Active ergocalciferol 1.25 MG (03645 UT) capsule 12/24/2023 Active spironolactone (Aldactone) 25 MG tablet 11/12/2023 Active NIFEdipine XL (Procardia XL) 30 MG 24 hr tablet 05/21/2023 Active allopurinol (Zyloprim) 300 MG tablet 12/23/2013 Active omeprazole (PriLOSEC) [address] capsule Take 1 capsule (20 mg) by mouth 1 (one) time each day. 12/23/2013 Active levothyroxine (Synthroid, Levoxyl) 125 MCG tablet 11/03/2023 Active diclofenac (Voltaren) 1 % topical gel Place on the skin 2 (two) times a day. Apply as directed to area of pain 100 g 01/01/2024 Active Social History Tobacco Use Types Packs/Day Years Used Date Smoking Tobacco: Never Alcohol Use Standard Drinks/Week Comments Yes 0 (1 standard drink = 0.6 oz pur e alcohol) Sex and Gender Information Value Date Recorded Sex Assigned at Not on file Legal Sex Male 8:15 PM EDT Gender Identity Not on file Sexual Orientation Not on file Last Filed Vital Signs Vital Sign Reading Time Taken Comments Blood Pressure 111/66 01/01/2024 9:40 AM EST Pulse - - Temperature - - Respiratory Rate - - Oxygen Saturation - - Inhaled Oxygen Concentration - - Weight 111 kg (245 lb) 01/01/2024 9:40 AM EST Height 182.9 cm (6') 01/01/2024 9:40 AM EST Body Mass Index 33.23 01/01/2024 9:40 AM EST Plan of Treatment Health Maintenance Due Date Last Done Comments [facility]-Depression Screening 1950 [facility]-Hepatitis C Screening 1950 [facility]-Medicare Annual Wellness (AWV) 1950 [facility]-/Child/Adol SDOH Screenings 1950 [facility]- SDOH Screenings 1969 [facility]-Adult SDOH Screenings 1969 CT Colonography 1996 Colonoscopy 1996 FIT-DNA 1996 FIT 1996 FOBT 1996 Sigmoidoscopy 1996 [facility]-Colorectal Cancer Screening 1996 [facility]-RSV Vaccine: 60+ Years or (1 - Risk 60-74 years 1-dose series) 2011 [facility]-Pneumococcal Vaccine: 50+ Years (2 of 2 - PCV) 03/24/2020 03/24/2019 [id number] Vaccine (6 - Moderna risk 2023- season) 2024 12/05/2023, 12/14/2021, 03/16/2021, Additional history exists [facility]-Influenza Vaccine (#1) 10/26/202412/04, 12/01/2021, 11/15/2020, Additional history exists [facility]-DTaP,Tdap,and Td Vaccines (2 - Td or Tdap) 01/09/2025 01/09/2015 [facility]-Hepatitis A Vaccines Aged Out 07/29/2018 No longer eligible based on patient's age to complete this topic [facility]-Zoster Vaccines Completed 08/14/2022, [facility]-Obesity Intervention Completed 01/01/2024 HPV Vaccines Aged Out No longer eligi ble based on patient's age to complete this topic [facility]-HIB Vaccines Aged Out No longer e ligible based on patient's age to complete this topic [facility]-IPV Vaccines Aged Out No longer e ligible based on patient's age to complete this topic [facility]-Rotavirus Vaccines Aged Out No lo nger eligible based on patient's age to complete this topic Insurance MEDICARE [facility] Care Teams Fire Fighting Equipment Specialist Relationship Specialty Start Date End Date [address], [place] [address] PCP - General Family Medicine 01/01/24
[2024-09-17 11:09] LABS: C-Reactive Protein 0.8 mg/L (0-4)
== END 2024-09-17 23:59 | disposition home or self-care (01) ==
LOC: LAB 10:16
PROVIDERS: PCP Nurse Practitioner Family; Visit Provider Orthopaedic Surgery
DX: M45.0 Ankylosing spondylitis of multiple sites in spine (principal)
CPT/HCPCS: 36415; 85651; 86140; 86812

== ENCOUNTER 2024-09-21 07:18 | Day surgery (SDC) | payer MEDICARE, OTHER, SELFPAY ==
--- NOTE | 2024-09-21 07:17 | P.HP_ITS ---
History of Present Illness *Admission Date: 09/21/24 *Reason for visit:: Personal history of adenomatous colon polyps *History of present illness: Mr. Barrientos is a 74-year-old gentleman who is here for surveillance/screening colonoscopy secondary to a personal history of adenomatous colon polyps. The examination is deemed medically necessary for screening/surveillance colonoscopy. The patient has been seen, interviewed and examined prior to the procedure by both myself and the anesthesia provider. [facility] Disclaimer: The information contained in this section may have been updated after the patient was seen, as this information can be updated by other users. Medical History Encounter for pre-operative cardiovascular clearance Elevated glucose Dyspnea Typical angina Carotid artery disease Surgical History History of heart artery stent History of cardiac cath Family History (Updated 09/21/24 @ 08:12 by Keira Zheng RN) Other No significant family history Social History Smoking Status: Unknown if ever smoked alcohol intake: never substance use type: denies use current occupational status: retired Travel in the last 8 weeks?: Inside the [place] household members: spouse housing: house current occupational exposures/hazards: No caffeine: Yes Have you lived/traveled outside US in past 30 days?: No Contact w/someone who lives/traveled outside US past 30 days?: No Exposure to someone with infectious disease in past 14 days?: No Do you have a fever (greater than 100.4 F or 38 C)?: No Have you tested positive for COVID-19?: No Exposed to someone with COVID-19 in past 14 days?: No Do you have a sore throat?: No Do you have a cough?: No Do you have any weakness?: No Do you have any diarrhea?: No Are you experiencing any unusual bleeding?: No Do you have any muscle aches/pain?: No Do you have any abdominal pain?: No Are you experiencing loss of taste or smell?: No Other Medical History Have you received the Flu Vaccine for this season: Yes Have you received the Pneumonia Vaccine: Yes Review of Systems Review of Systems Review of systems (narrative): Negative *Cardiovascular Comments: Negative *Gastrointestinal Comments: Negative *Genitourinary Comments: Negative *Musculoskeletal Comments: Negative *Neurologic Comments: Negative Meds Home Medications and Allergies Home Medications ?Medication ?Instructions ?Recorded ?Confirmed ?Type allopurinol 300 mg tablet 300 mg PO DAILY gout 8 09/21/24 History albuterol sulfate 90 mcg/actuation 2 puffs inhalation Q4-6H Asthma 03/20/18 09/21/24 History breath activated powder inhaler cyanocobalamin (vitamin B-12) 2,500 mcg sublingual DESHAWN LY 03/20/18 09/21/24 History 1,000 mcg sublingual tablet Supplement nitroglycerin 0.4 mg sublingual 0.4 mg sublingual Q5MI MANAGER UTILIZATION MANAGEMENT PRN Chest 03/21/18 09/21/24 Rx tablet Pain ##1 aspirin 81 mg tablet,delayed 81 mg PO DAILY preventive #90 tabs 03/25/18 09/21/24 Rx release levothyroxine 125 mcg tablet 125 mcg PO DAILY thyroid 06/24/18 09/21/24 History omeprazole 20 mg tablet,delayed 20 mg PO DAILY GERD #9 0 tabs 06/24/18 09/21/24 Rx release metoprolol succinate 25 mg 25 mg PO DAILY High blood p ressure 12/16/23 09/21/24 Rx tablet,extended release 24 hr #90 tabs gabapentin 600 mg tablet 600 mg PO BID 03/26/2409/21 History [id number] 140 gram-sod sulfate 9 500 ml PO .COMPLEX colo nscopy #3 ea 09/14/24 09/17/24 Rx gram-NaCl 5.2gram-KCl-C oral pwdr packs (Plenvu) sod picosulf 10 mg-magnes 3.5 175 ml PO DAILY Bowel Pr ep 2 doses 09/14/24 09/17/24 Rx gram-citric 12 gram/175 mL oral #350 mL solution (Clenpiq) atorvastatin 40 mg tablet (Lipitor) 40 mg PO DAILY #30 tabs 09/17/24 09/21/24 Rx spironolactone 25 mg tablet 25 mg PO DAILY 09/17/24 History (Aldactone) fenofibrate nanocrystallized 48 mg 48 mg PO DAILY 08/2609/21/24 History tablet (Tricor) nifedipine 30 mg tablet,extended 30 mg PO DAILY 09/21/24 History release 24 hr New Prescriptions to Start Prescriptions: Allergies Allergy/AdvReac Type Severity Reaction Status Date / Time lisinopril AdvReac Mild cough Verified 09/21/24 08:12 Exam *Routine HEENT Exam Head: Present normocephalic Eye: Present EOMI and PERRL ENT: Present mucous membranes moist *Routine Neck Exam Neck: Present supple *Routine Respiratory Exam Respiratory: Present CTA bilaterally *Routine Cardiovascular Exam Cardiovascular: Present RRR *Routine Abdominal Exam Abdominal: Present soft and normoactive bowel sounds; Absent tenderness *Routine Rectal Exam Rectal:: deferred *Routine Genitalia Exam Genitalia:: deferred *Routine Extremities Exam Extremities: Absent cyanosis, clubbing or edema *Routine Skin Exam Skin: Present warm; Absent rash *Routine Neurological Exam Neurological: Present alert and oriented X3 Assessment and Plan *Assessment and plan (1) Personal history of adenomatous and serrated colon polyps: Status: Acute Category: Medical Code(s): Z86.0101 - Personal history of adenomatous and serrated colon polyps Plan A/P: 1. Personal history of adenomatous colon polyps is the preprocedural diagnosis. The patient will be anesthetized/sedated using MAC sedation. The patient has been seen and examined. Cardiac and lung assessment prior to the examination is stable. Proceed with planned screening/surveillance colonoscopy.
[2024-09-21 08:05] VITALS: BMI 33.2
[2024-09-21 08:20] VITALS: BP 127/73; PULSE 60; RESP 18; TEMP 36.8; O2SAT 95
--- NOTE | 2024-09-21 09:00 | HMH.PROCNOTE ---
[facility] Procedure Note Date: 09/21/24 Time: 09:19 Procedure Note:: Colonoscopy Procedure Report: Colonoscopy with cold snare polypectomy Endoscopist: Alireza Solis II, MD Referring physician: JF Loaiza Date of Procedure: September 21, 2024 Equipment: Olympus [id number] adult colonoscope Sedation: MAC sedation Indication: Mr. Barrientos is a 74-year-old gentleman who is here for follow-up screening/surveillance colonoscopy. He does have a personal history of adenomatous colon polyps. He had a colonoscopy with in October 2017 and had 4 polyps (tubular adenomas x 4) removed. He had a colonoscopy with Dr. Javi Mao M.D. in May 2021 and had 8 polyps (tubular adenomas x 7/mucosal prolapse polyp x 1) which were removed. He reports no abdominal pain, weight loss, change in his bowel habits or rectal bleeding. He reports no family history of colon cancer. Procedure: Prior to the procedure, a history and physical exam was performed, and patient's medications and allergies were reviewed. The risks, benefits and alternatives of the sedation and procedure were discussed with the patient. All questions were answered and informed consent was obtained. The patient was brought to the procedure room. Patient identification and proposed procedure were verified by the physician and the nurse. The patient was placed in a left lateral decubitus position and the scope was passed under direct vision. Throughout the procedure, the patient's blood pressure, pulse, and oxygen saturations were monitored continuously. The colonoscopy was accomplished without difficulty. The patient tolerated the procedure well. Findings: On digital rectal examination there was normal rectal tone. There were no external hemorrhoids. There were external hemorrhoidal tags and some anal condyloma. The prostate was 2+ some mild firmness in the right lobe of the prostate but no nodules. The colonoscope was introduced through the anal canal to the rectum and advanced to the cecum. The ileocecal valve and appendiceal orifice were identified. The scope was advanced a short distance into the ileum which appeared grossly normal. The scope was then withdrawn into the colon. There were 8 diminutive polyps (ascending x 3 (4, 4 and 6 mm), transverse x 3 (4, 4 and 5 mm) and descending x 2 (3 and 4 mm)). These were all removed via cold snare polypectomy. The remaining cecum, ascending and transverse colon and mucosa were grossly normal. There were scattered diverticuli throughout the descending and sigmoid colon (LEFT colon). The rectum itself was normal. Upon retroflexion within the rectum there were grade 2 internal hemorrhoids. The preparation was excellent throughout with [place] Preparation Score of 9. The cecal time was 14 minutes. Impression: 1. Diminutive colonic polyps x 8 2. Left-sided diverticulosis 3. Grade 2 internal hemorrhoids 4. Perianal condyloma Plan: I will follow-up the polyp histology and recommend repeat surveillance colonoscopy in 3 years if the polyps are adenomatous. Persons with more than 20 adenomatous polyps cumulatively over the lifetime (over several colonoscopies) are considered to be higher risk for potential colon cancer or a genetic colon cancer polyposis syndrome. It is recommended that persons with more than a cumulative of 20 adenomatous polyps over there lifetime should be evaluated with surveillance colonoscopy no less than every 3 years. The patient has had nearly 20 adenomatous polyps removed over the course of his colonoscopies. I would encourage psyllium bulking fiber supplementation on a maintenance basis.
[2024-09-21 09:20] VITALS: BP 93/54; PULSE 61; RESP 20; TEMP 36.3; O2SAT 93
[2024-09-21 09:30] VITALS: BP 107/53; PULSE 56; RESP 20; TEMP 36.3; O2SAT 94
[2024-09-21 09:40] VITALS: BP 141/81; PULSE 54; RESP 20; TEMP 36.3; O2SAT 93
[2024-09-21 09:50] VITALS: BP 132/74; PULSE 61; RESP 20; TEMP 36.3; O2SAT 94
== END 2024-09-21 10:04 | disposition home or self-care (01) ==
PROVIDERS: PCP Nurse Practitioner Family; Visit Provider Internal Medicine Gastroenterology
PROC: 0DJD8ZZ Inspection of Lower Intestinal Tract, Via Natural or Artificial Opening Endoscopic (ICD-10-PCS; CPT 45378; principal; 2024-09-21 09:00)
DX: Z12.11 Encounter for screening for malignant neoplasm of colon (principal); D12.2 Benign neoplasm of ascending colon; D12.3 Benign neoplasm of transverse colon; D12.4 Benign neoplasm of descending colon; Z86.0101 Personal history of adenomatous and serrated colon polyps; K57.30 Diverticulosis of large intestine without perforation or abscess without bleeding; K64.1 Second degree hemorrhoids; Z88.8 Allergy status to other drugs, medicaments and biological substances; Z79.82 Long term (current) use of aspirin; Z79.890 Hormone replacement therapy; Z79.899 Other long term (current) drug therapy
CPT/HCPCS: 45385; J2003; J2704